=== PATIENT | female | born 1935 | race Caucasian/White ===

== ENCOUNTER 2016-09-24 10:10 | Emergency (ER) | payer MEDICAID, OTHER ==
[2016-09-24 10:10] VITALS: BMI 35.4
[2016-09-24 10:42] VITALS: TEMP 97.4
--- NOTE | 2016-09-24 11:18 | C.PDOC ---
History Of Present Illness 80 yr old female presents to the ER with complaints of upper back pain, radiating to the chest for the past 2 days. Patient also reports of numbness in the entire right arm. Denies trauma, injury, SOB, nausea, vomiting, abdominal pain, diarrhea, dysuria, neck pain, weakness or numbness. Time Seen by Provider: 09/24/16 10:52 Chief Complaint (Nursing): Back Pain History Per: Patient History/Exam Limitations: no limitations Onset/Duration Of Symptoms: Days (2) Current Symptoms Are (Timing): Still Present Past Medical History Reviewed: Historical Data, Nursing Documentation, Vital Signs Vital Signs: Last Vital Signs Temp 97.4 F L 09/24/16 10:32 Pulse 63 09/24/16 16:25 Resp 18 09/24/16 16:25 BP 117/54 L 09/24/16 16:25 Pulse Ox 98 09/24/16 16:52 - Medical History PMH: Anxiety, Arthritis, Gastritis, Gall Bladder Disease, HTN, Hypothyroidism Surgical History: CABG, Cholecystectomy, Pacemaker (2009) - [facility] Procedures EXCIS DEBRIDE OF WOUND, INFECT, OR BURN (07/12/13) IMMOBILIZ/WOUND ATTN NEC (07/12/13) Family History: States: No Known Family Hx - Social History Hx Tobacco Use: No Hx Alcohol Use: No Hx Substance Use: No - Immunization History Hx Tetanus Toxoid Vaccination: No Hx Influenza Vaccination: No Hx Pneumococcal Vaccination: No Review Of Systems Except As Marked, All Systems Reviewed And Found Negative. Cardiovascular: Positive for: Chest Pain (Raditing pain to chest) Respiratory: Negative for: Shortness of Breath Gastrointestinal: Negative for: Nausea, Abdominal Pain, Diarrhea Genitourinary: Negative for: Dysuria Musculoskeletal: Positive for: Back Pain (Upper back ). Negative for: Neck Pain Neurological: Negative for: Weakness, Numbness Physical Exam - Physical Exam Appears: Well, Non-toxic, No Acute Distress Skin: Warm, Dry, No Rash Head: Atraumatic, Normacephalic Chest: Symmetrical, Tenderness (Tenderness to the anterior chest ) Cardiovascular: Rhythm Regular, No Murmur Respiratory: Normal Breath Sounds, No Rales, No Wheezing Back: Other ((+) Tenderness to the upper back) Extremity: Normal ROM, Capillary Refill (<2), No Swelling Pulses: Left Radial: Normal, Right Radial: Normal Neurological/Psych: Oriented x3, Normal Speech ED Course And Treatment - Laboratory Results Result Diagrams: 09/24/16 11:38 09/24/16 11:38 O2 Sat by Pulse Oximetry: 98 - Other Rad CXR X-Ray: Viewed By Me, Read By Radiologist Interpretation: HISTORY: upper back pain. COMPARISON: Chest x-ray performed . TECHNIQUE: Chest, one view. FINDINGS: LUNGS: Mild bibasilar atelectasis. Please note that chest x-ray has limited sensitivity for the detection of pulmonary masses. PLEURA: No significant pleural effusion identified. No definite pneumothorax . CARDIOVASCULAR: Right-sided 3 lead pacemaker. Cardiomegaly. Tortuous aorta. Atherosclerotic calcifications. OSSEOUS STRUCTURES: Degenerative changes of the spine and shoulders. Acromioclavicular arthropathy. VISUALIZED UPPER ABDOMEN: Unremarkable. OTHER FINDINGS: None. IMPRESSION: Mild bibasilar atelectasis. Cardiomegaly. Right -sided pacemaker. - CT Scan/US CT - Head Other Rad Studies (CT/US): Read By Radiologist, Radiology Report Reviewed CT/US Interpretation: PROCEDURE: CT HEAD WITHOUT CONTRAST. HISTORY: right UE numbness. COMPARISON: Noncontrast head CT performed 08/14/12. TECHNIQUE: Axial computed tomography images were obtained through the head/brain without intravenous contrast. Radiation dose: Total exam DLP = 813.83 mGy-cm. This CT exam was performed using one or more of the following dose reduction techniques: Automated exposure control, adjustment of the mA and/or kV according to patient size, and/or use of iterative reconstruction technique. FINDINGS: HEMORRHAGE: No intracranial hemorrhage. BRAIN: Diffuse atrophy with prominence of the ventricles and sulci noted. No mass effect or edema. Intracranial atherosclerotic calcifications. Scattered periventricular and subcortical white matter hypodensities, which are nonspecific, but often seen with chronic microvascular ischemic disease. Please note that MRI with diffusion imaging is more sensitive in the detection of acute ischemic event. VENTRICLES: No hydrocephalus. CALVARIUM: Unremarkable. PARANASAL SINUSES: Unremarkable as visualized. No significant inflammatory changes. MASTOID AIR CELLS: Unremarkable as visualized. No inflammatory changes. OTHER FINDINGS: None. IMPRESSION: Generalized atrophy. Nonspecific white matter changes. Please note that MRI with diffusion imaging is more sensitive in the detection of acute ischemic event. CT - Chest & Abdomen Other Rad Studies (CT/US): Read By Radiologist, Radiology Report Reviewed CT/US Interpretation: CT chest, abdomen without and with IV contrast. Indication: CP/upper back pain/elevated. Technique: Contiguous axial images of the chest and abdomen without and with IV contrast. Coronal and Sagittal reformats generated and reviewed. This CT exam was performed using 1 or more of the following dose reduction techniques: Automated exposure control, adjustment of the MAA and/or kV according to patient size, and/or use of iterative reconstruction technique. Oral contrast was not administered. 100 cc Visipaque 320 administered IV. Radiation dose: Total exam DLP = 2299.83 MGy- cm. Comparison: Chest x-ray performed 09/24/16 CT abdomen and pelvis without contrast performed 05/14/12. Findings: The mediastinal and hilar vascular structures appear within normal limits. Three lead right-sided pacemaker. Cardiomegaly. Ectatic aorta. Atherosclerotic calcifications. No large central or segmental pulmonary embolus evident. No focal consolidation. No pleural effusion. No pneumothorax. No suspicious pulmonary nodules measuring greater than 5 mm. Cholecystectomy clips. The liver, spleen, kidneys, pancreas , and adrenal glands appear unremarkable. Small to moderate hiatal hernia. The stomach is nondistended. Lack of oral contrast limits evaluation for bowel pathology. The included bowel loops appear within normal limits of caliber without evidence of intestinal obstruction. Mild constipation. Diverticulosis without CT evidence of acute diverticulitis. There is no definite free air. The appendix appears within normal limits of caliber. No secondary signs of acute appendicitis. Numerous calcified densities within bilateral buttocks, likely injection granulomas. Small nonspecific sub cm nodular densities bilateral breasts (measuring up to approximately 8 mm) ; correlate with dedicated breast imaging. Degenerative changes. Vacuum disc phenomenon at several levels. Osseous demineralization. Mild kyphosis. Impression: Three lead right-sided pacemaker. Cardiomegaly. Ectatic aorta. Atherosclerotic calcifications. No large central or segmental pulmonary embolus evident. Cholecystectomy. Small to moderate hiatal hernia. Diverticulosis without CT evidence of acute diverticulitis. Mild constipation. . Small nonspecific sub cm nodular densities bilateral breasts (measuring up to approximately 8 mm) ; correlate with dedicated breast imaging. Degenerative changes of spine. Osseous demineralization. Mild kyphosis. Additional findings as above. Progress Note: On re-evaluation patient feels better, tolerates po and wants to be d/c home. Patient's son is at the bedside and also stating he wants patient to be d/c and sts they will f/u with PMD WIL. All labs and radiology reports were given to the patient. Medical Decision Making Medical Decision Making: PLAN: * CT - Chest & Abdomen * CT - Head * CXR * EKG * CBC * Troponin * D-Dimer * Urinalysis * Morphine IVP Disposition - Disposition Disposition: HOME/ ROUTINE Disposition Time: 16:50 Condition: STABLE Additional Instructions: FOLLOW UP WITH PMD WITHIN 1-2 DAYS. RETURN TO ED IF FEEL WORSE. Prescriptions: Nitrofurantoin Macrocrystals [Macrobid] 1 cap PO BID #10 cap traMADol/Acetaminophen [Ultracet 325 MG-37.5 MG] 1 tab PO Q6 PRN #30 tab PRN Reason: Pain Instructions: Back Pain (ED) - Clinical Impression Clinical Impression: Thoracic back pain - PA / FOOD CART ATTENDANT / Resident Statement MD/DO has reviewed & agrees with the documentation as recorded. - Scribe Statement The provider has reviewed the documentation as recorded by the Scribe Huong Oliveira All medical record entries made by the [employer] were at my direction and personally dictated by me. I have reviewed the chart and agree that the record accurately reflects my personal performance of the history, physical exam, medical decision making, and the department course for this patient. I have also personally directed, reviewed, and agree with the discharge instructions and disposition.
[2016-09-24 11:41] LABS: BASO % 0.7 % (0.0-2.0); EOS # 0.1 K/uL (0.0-0.7); EOS % 2.3 % (0.0-4.0); HEMATOCRIT 35.8 % (34.0-47.0); LYMPH # 2.1 K/uL (1.0-4.3); LYMPH % 34.2 % (20.0-40.0); MEAN CELL VOLUME 92.4 fL (81.0-99.0); MEAN CORPUSCULAR HEMOGLOBIN 30.7 pg (27.0-31.0); MEAN CORPUSCULAR HGB CONC 33.3 g/dL (33.0-37.0); MEAN PLATELET VOLUME 9.5 fL (7.2-11.7); MONO # 0.5 K/uL (0.0-0.8); MONO % 8.7 % (0.0-10.0); RED CELL DISTRIBUTION WIDTH 13.2 % (11.5-14.5); WHITE BLOOD COUNT 6.2 K/uL (4.8-10.8)
[2016-09-24 11:49] LABS: CHLORIDE 97 mmol/L (98-107)
[2016-09-24 11:50] LABS: INR 1.1; POTASSIUM 3.9 mmol/L (3.6-5.2); SODIUM 135 mmol/L (132-148)
[2016-09-24 11:52] LABS: ALB/GLOB RATIO 1.2 (1.0-2.1); ALKALINE PHOSPHATASE 70 U/L (38-126); AST/SGOT 25 U/L (14-36); BILIRUBIN,TOTAL 0.5 mg/dL (0.2-1.3); BLOOD UREA NITROGEN 19 mg/dL (7-17); CARBON DIOXIDE 27 mmol/L (22-30); GFR AFRICAN-AMERICAN > 60
[2016-09-24 11:53] LABS: ALT/SGPT 26 U/L (9-52); CALCIUM 8.9 mg/dl (8.6-10.4); GLUCOSE,RANDOM 101 mg/dL (65-105)
--- NOTE | 2016-09-24 12:03 | CT ---
PROCEDURE: CT HEAD WITHOUT CONTRAST. HISTORY: right UE numbness COMPARISON: Noncontrast head CT performed 08/14/12 TECHNIQUE: Axial computed tomography images were obtained through the head/brain without intravenous contrast. Radiation dose: Total exam DLP = 813.83 mGy-cm. This CT exam was performed using one or more of the following dose reduction techniques: Automated exposure control, adjustment of the mA and/or kV according to patient size, and/or use of iterative reconstruction technique. FINDINGS: HEMORRHAGE: No intracranial hemorrhage. BRAIN: Diffuse atrophy with prominence of the ventricles and sulci noted. No mass effect or edema. Intracranial atherosclerotic calcifications. Scattered periventricular and subcortical white matter hypodensities, which are nonspecific, but often seen with chronic microvascular ischemic disease. Please note that MRI with diffusion imaging is more sensitive in the detection of acute ischemic event. VENTRICLES: No hydrocephalus. CALVARIUM: Unremarkable. PARANASAL SINUSES: Unremarkable as visualized. No significant inflammatory changes. MASTOID AIR CELLS: Unremarkable as visualized. No inflammatory changes. OTHER FINDINGS: None. IMPRESSION: Generalized atrophy. Nonspecific white matter changes. Please note that MRI with diffusion imaging is more sensitive in the detection of acute ischemic event.
[2016-09-24 12:05] LABS: RBC URINE 1 /hpf (0-3); URINE BILIRUBIN NEGATIVE (NEGATIVE); URINE BLOOD NEGATIVE (NEGATIVE); URINE COLOR Yellow (YELLOW); URINE GLUCOSE (UA) NORMAL (Normal); URINE KETONE NEGATIVE (NEGATIVE); URINE LEUKOCYTE ESTERASE 3+ Leu/uL (Negative); URINE PROTEIN NEGATIVE (NEGATIVE); URINE UROBILINOGEN NORMAL mg/dL (0.2-1.0); WBC URINE 17 /hpf (0-5)
[2016-09-24 12:30] LABS: URINE BACTERIA MANY (<OCC)
[2016-09-24] MEDS ORDERED: Iodixanol 320 MG/ML 100 ML BOTTLE IV ONE (13:19)
--- NOTE | 2016-09-24 13:35 | RAD ---
HISTORY: upper back pain COMPARISON: Chest x-ray performed 12/20/15 TECHNIQUE: Chest, one view. FINDINGS: LUNGS: Mild bibasilar atelectasis. Please note that chest x-ray has limited sensitivity for the detection of pulmonary masses. PLEURA: No significant pleural effusion identified. No definite pneumothorax . CARDIOVASCULAR: Right-sided 3 lead pacemaker. Cardiomegaly. Tortuous aorta. Atherosclerotic calcifications. OSSEOUS STRUCTURES: Degenerative changes of the spine and shoulders. Acromioclavicular arthropathy. VISUALIZED UPPER ABDOMEN: Unremarkable. OTHER FINDINGS: None. IMPRESSION: Mild bibasilar atelectasis. Cardiomegaly. Right-sided pacemaker.
[2016-09-24 14:31] VITALS: PULSE 63
--- NOTE | 2016-09-24 15:07 | CT ---
CT chest, abdomen without and with IV contrast Indication: CP/upper back pain/elevated Technique: Contiguous axial images of the chest and abdomen without and with IV contrast. Coronal and Sagittal reformats generated and reviewed. This CT exam was performed using 1 or more of the following dose reduction techniques: Automated exposure control, adjustment of the MAA and/or kV according to patient size, and/or use of iterative reconstruction technique. Oral contrast was not administered. 100 cc Visipaque 320 administered IV. Radiation dose: Total exam DLP = 2299.83 MGy-cm. Comparison: Chest x-ray performed 09/24/16 CT abdomen and pelvis without contrast performed 05/14/12 Findings: The mediastinal and hilar vascular structures appear within normal limits. Three lead right-sided pacemaker. Cardiomegaly. Ectatic aorta. Atherosclerotic calcifications. No large central or segmental pulmonary embolus evident. No focal consolidation. No pleural effusion. No pneumothorax. No suspicious pulmonary nodules measuring greater than 5 mm. Cholecystectomy clips. The liver, spleen, kidneys, pancreas, and adrenal glands appear unremarkable. Small to moderate hiatal hernia. The stomach is nondistended. Lack of oral contrast limits evaluation for bowel pathology. The included bowel loops appear within normal limits of caliber without evidence of intestinal obstruction. Mild constipation. Diverticulosis without CT evidence of acute diverticulitis. There is no definite free air. The appendix appears within normal limits of caliber. No secondary signs of acute appendicitis. Numerous calcified densities within bilateral buttocks, likely injection granulomas. Small nonspecific sub cm nodular densities bilateral breasts (measuring up to approximately 8 mm) ; correlate with dedicated breast imaging. Degenerative changes. Vacuum disc phenomenon at several levels. Osseous demineralization. Mild kyphosis. Impression: Three lead right-sided pacemaker. Cardiomegaly. Ectatic aorta. Atherosclerotic calcifications. No large central or segmental pulmonary embolus evident. Cholecystectomy. Small to moderate hiatal hernia. Diverticulosis without CT evidence of acute diverticulitis. Mild constipation. Small nonspecific sub cm nodular densities bilateral breasts (measuring up to approximately 8 mm) ; correlate with dedicated breast imaging. Degenerative changes of spine. Osseous demineralization. Mild kyphosis. Additional findings as above.
[2016-09-24 16:25] VITALS: BP 117/54; RESP 18
[2016-09-24 16:52] VITALS: O2SAT 98
--- NOTE | 2016-09-25 17:47 | CARD ---
APPROVED REPORT EKG Measurement Heart [id number] <Conclusion> Ventricular-paced rhythm Abnormal ECG
== END 2016-09-24 17:09 | disposition home or self-care (01) ==
LOC: C.ER 10:10
DX: M54.6 Pain in thoracic spine (principal)
CPT/HCPCS: 70450; 71010; 71270; 74170; 80053; 81001; 82550; 82553; 83880; 84484; 85025; 85378; 85610; 85730; 93005; 96374; 99285; J2270; Q9967

== ENCOUNTER 2017-03-28 06:57 | Inpatient (IN) | payer MEDICAID ==
[2017-03-28 06:58] VITALS: BMI 28.3
[2017-03-28 07:38] LABS: BASO # 0.1 K/uL (0.0-0.2); BASO % 1.1 % (0.0-2.0); EOS # 0.1 K/uL (0.0-0.7); EOS % 2.2 % (0.0-4.0); HEMATOCRIT 43.2 % (34.0-47.0); LYMPH # 1.6 K/uL (1.0-4.3); MEAN CELL VOLUME 92.1 fL (81.0-99.0); MEAN CORPUSCULAR HEMOGLOBIN 30.9 pg (27.0-31.0); MEAN CORPUSCULAR HGB CONC 33.5 g/dL (33.0-37.0); MONO # 0.8 K/uL (0.0-0.8); NRBC % 0.2 % (0.0-2.0); RED CELL DISTRIBUTION WIDTH 13.6 % (11.5-14.5); WHITE BLOOD COUNT 4.8 K/uL (4.8-10.8)
[2017-03-28 07:50] LABS: ALB/GLOB RATIO 1.1 (1.0-2.1); ALKALINE PHOSPHATASE 81 U/L (38-126); ALT/SGPT 41 U/L (9-52); AST/SGOT 46 U/L (14-36); BILIRUBIN,TOTAL 0.6 mg/dL (0.2-1.3); BLOOD UREA NITROGEN 22 mg/dL (7-17); CALCIUM 8.8 mg/dl (8.6-10.4); CARBON DIOXIDE 32 mmol/L (22-30); CHLORIDE 96 mmol/L (98-107); GFR AFRICAN-AMERICAN 48; GLUCOSE,RANDOM 117 mg/dL (65-105); POTASSIUM 4.1 mmol/L (3.6-5.2); SODIUM 138 mmol/L (132-148); TOTAL PROTEIN 8.1 g/dL (6.3-8.3)
--- NOTE | 2017-03-28 09:37 | CP.PCM.HP ---
<Day Obregon - Last Filed: 03/28/17 10:17> History of Present Illness - History of Present Illness History of Present Illness: CC: "coughing x 3 days" This is an 81 year old [place] speaking female with PMHx of HTN, IGT, hyerlipidemia, hypothyroidism, cataracts, anxiety, arthritis, gastritis and "pacemaker for shortness of breath" presenting for 3 days of cough productive of white phlegm associated with fever, headache and chest pain radiating to her back. Patient reports shortness of breath with excursion. Patient says the chest pain hurts more when she presses on it and when she coughs. She says it hurts the most in her back. She tried Advil at home with no relief. She has not tried any other medications. Patient also reports feeling phlegm in her throat constantly.Patient has not had a bowel movement in 2 days which is not normal for her. She has had a decreased appetite for 2 days. She has only been drinking fluids, not eating food.Patient reports returning from [facility] one month ago (she was there for one month). Patient denies vision change, chills, sore throat, palpitations, abdominal pain, nausea, vomiting, diarrhea, dysuria, sick contacts. Patient says her pacemaker has 3 years of battery left. PMHx: as above PSHx: Pacemaker placed 17 years ago for "SOB" in [facility] and replaced 6 years ago, partial right knee replacement 6 years ago and left ankle surgery 16 years ago for ulcer; CABG is in her history on intake but she denies this and does not have a scar or sternotomy on CXR; cholecystectomy over 10 years ago FMHx: uncontributory. Social: Denied smoking, ETOH or drugs. Lives with son. Pt can ambulate without cane or walker at home. Allergies: NKDA PMD: Dr. Schmitz Private EP cardio: Dr. Calderon Present on Admission - Present on Admission Any Indicators Present on Admission: No Review of Systems - Constitutional Constitutional: Fever. absent: Chills - EENT Eyes: absent: Blurred Vision Ears: Dizziness (today) Nose/Mouth/Throat: Post Nasal Drip. absent: Sore Throat - Cardiovascular Cardiovascular: Chest Pain, Radiating Pain. absent: Diaphoresis, Edema, Palpitations, Rapid Heart Rate - Respiratory Respiratory: Cough, Dyspnea, Excessive Mucous Production. absent: Wheezing, Change in Mucous Color - Gastrointestinal Gastrointestinal: Constipation. absent: Abdominal Pain, Diarrhea, Nausea, Vomiting - Genitourinary Genitourinary: absent: Dysuria - Musculoskeletal Musculoskeletal: Back Pain - Neurological Neurological: Dizziness, Headaches - Psychiatric Psychiatric: Change in Appetite. absent: Depression - Endocrine Endocrine: absent: Fatigue, Palpitations - Hematologic/Lymphatic Hematologic: absent: Easy Bleeding, Easy Bruising Past Patient History - Infectious Disease Hx of Infectious Diseases: None - Past Medical History & Family History Past Medical History?: Yes Past Family History: Reviewed and not pertinent - Past Social History Smoking Status: Never Smoked Alcohol: None Drugs: Denies Home Situation {Lives}: With Family - CARDIAC Hx Cardiac Disorders: Yes Hx Hypertension: Yes Hx Pacemaker: Yes (2009) - PULMONARY Hx Respiratory Disorders: No - NEUROLOGICAL Hx Neurological Disorder: No - HEENT Hx HEENT Problems: Yes Hx Cataracts: Yes (BILATERAL CATARACT SURGERY) - RENAL Hx Chronic Kidney Disease: No - ENDOCRINE/METABOLIC Hx Endocrine Disorders: Yes Hx Hypothyroidism: Yes - HEMATOLOGICAL/ONCOLOGICAL Hx Blood Disorders: No - INTEGUMENTARY Hx Dermatological Problems: No - MUSCULOSKELETAL/RHEUMATOLOGICAL Hx Musculoskeletal Disorders: Yes Hx Arthritis: Yes - GASTROINTESTINAL Hx Gastrointestinal Disorders: Yes Hx Gall Bladder Disease: Yes Hx Gastritis: Yes - GENITOURINARY/GYNECOLOGICAL Hx Genitourinary Disorders: No - PSYCHIATRIC Hx Psychophysiologic Disorder: Yes Hx Anxiety: Yes Hx Substance Use: No - SURGICAL HISTORY Hx Surgeries: Yes Hx Cholecystectomy: Yes Hx Coronary Artery Bypass Graft: Yes Hx Hysterectomy: Yes Hx Musculoskeletal Surgery: Yes (BILATERAL KNEE) Other/Comment: PACEMAKER - ANESTHESIA Hx Anesthesia: Yes Hx Anesthesia Reactions: No Hx Malignant Hyperthermia: No Meds Allergies/Adverse Reactions: Allergies Allergy/AdvReac Type Severity Reaction Status Date / Time No Known Allergies Allergy Verified 03/28/17 07:11 Physical Exam - Constitutional Appears: Non-toxic, No Acute Distress - Head Exam Head Exam: NORMAL INSPECTION - Eye Exam Eye Exam: EOMI - ENT Exam ENT Exam: Mucous Membranes Moist. absent: Normal Oropharynx (erythematous with cobblestoning) - Respiratory Exam Respiratory Exam: Chest Wall Tenderness, Decreased Breath Sounds (right side), Rales (bibasilar), NORMAL BREATHING PATTERN. absent: Accessory Muscle Use, Clear to Auscultation Bilateral, Rhonchi, Wheezes, Respiratory Distress - Cardiovascular Exam Cardiovascular Exam: REGULAR RHYTHM, +S1, +S2. absent: Gallop, JVD, Rubs, Systolic Murmur - GI/Abdominal Exam GI & Abdominal Exam: Normal Bowel Sounds, Soft. absent: Distended, Firm, Tenderness - Extremities Exam Extremities exam: Negative for: pedal edema - Neurological Exam Neurological exam: Alert, Oriented x3 - Psychiatric Exam Psychiatric exam: Normal Affect, Normal Mood - Skin Skin Exam: Normal Color, Warm Results - Vital Signs Recent Vital Signs: Last Vital Signs Temp 97.4 F L 03/28/17 07:07 Pulse 77 03/28/17 09:24 Resp 16 03/28/17 09:24 BP 113/63 03/28/17 09:24 Pulse Ox 97 03/28/17 09:24 - Labs Result Diagrams: 03/28/17 07:33 03/28/17 07:20 Labs: Laboratory Results - last 24 hr 03/28/17 03/28/17 03/28/17 07:20 07:33 07:33 WBC 4.8 RBC 4.70 Hgb 14.5 Hct 43.2 MCV 92.1 MCH 30.9 MCHC 33.5 RDW 13.6 Plt Count 210 MPV 9.0 Neut % (Auto) 47.7 L Lymph % (Auto) 33.0 [place] % (Auto) 16.0 H Eos % (Auto) 2.2 Baso % (Auto) 1.1 Neut # 2.3 Lymph # 1.6 [place] # 0.8 Eos # 0.1 Baso # 0.1 Sodium 138 Potassium 4.1 Chloride 96 L Carbon Dioxide 32 H Anion Gap 14 BUN 22 H Creatinine 1.3 H Est GFR ( Amer) 48 Est GFR (Non-Af Amer) 39 Random Glucose 117 H Calcium 8.8 Total Bilirubin 0.6 AST 46 H ALT 41 Alkaline Phosphatase 81 Troponin I < 0.0120 Total Protein 8.1 Albumin 4.3 Globulin 3.8 Albumin/Globulin Ratio 1.1 Free T4 Influenza Typ A,B (EIA) Negative for flu a/b 03/28/17 07:54 WBC RBC Hgb Hct MCV MCH MCHC RDW Plt Count MPV Neut % (Auto) Lymph % (Auto) Jun[place] % (Auto) Eos % (Auto) Baso % (Auto) Neut # Lymph # Jun[place] # Eos # Baso # Sodium Potassium Chloride Carbon Dioxide Anion Gap BUN Creatinine Est GFR ( Amer) Est GFR (Non-Af Amer) Random Glucose Calcium Total Bilirubin AST ALT Alkaline Phosphatase Troponin I Total Protein Albumin Globulin Albumin/Globulin Ratio Free T4 1.31 Influenza Typ A,B (EIA) Assessment & Plan - Assessment and Plan (Free Text) Assessment: Productive Cough Likely secondary to pneumonia BNP 196 CXR 03/28/17 - read as no active disease; costophrenic angles are blunted and cardiac sillhouette is prominent Will get Chest CT (waiting for d-dimer to see if patient needs CTA or not) F/U blood culture, strep, mycoplasma, legionella Azithromycin 500mg IVPB daily Rocephin 1gm IVPB daily Robitussin 100mg PO Q4H PRN cough Duonebs 3ml INH RQ6 Dyspnea Possible PE as she was on a plane from [facility] one month ago F/U d-dimer Will get CTA if it is positive Chest Pain Likely musculoskeletal v. PE v. ACS EKG 03/28/17 - atrial paced ventricular rhythm at 83bpm JANNA negative x 1 F/U ROMIs with EKGs x 2 F/U ECHO F/U TSH, lipid panel, HgbA1C Continue home ASA 81mg PO daily Continue home simvastatin 20mg PO HS --> convert to formulary by pharmacy Toradol 30mg IVP x1 ERICA Creatinine 1.3 (from 0.8 last admission) Likely secondary to dehydration gentle hydration of NS @ 50mls/hr Holding home Lasix 40mg PO daily Monitor Constipation Colace 100mg PO BID Miralax 17gm PO daily History of HTN Continue home HCTZ 12.5mg PO daily Continue home Cozaar 100mg PO daily Controlled History of Hypothyroidism Continue home synthroid 125mcg PO daily F/U TSH History of Hyperlipidemia Converting home simvastatin 20mg PO daily to formulary F/U Lipid panel Prophylaxis Protonix 40mg PO daily Heparin 5000U SC Q8 SCDs <Kalani Duffy V - Last Filed: 03/29/17 11:49> Results - Vital Signs Recent Vital Signs: Last Vital Signs Temp 97.5 F L 03/28/17 16:00 Pulse 82 03/28/17 16:00 Resp 20 03/28/17 16:00 BP 103/68 03/28/17 16:00 Pulse Ox 98 03/28/17 16:00 - Labs Result Diagrams: 03/29/17 07:19 03/28/17 18:31 Labs: Laboratory Results - last 24 hr 03/28/17 03/28/17 03/28/17 07:20 07:33 07:33 WBC 4.8 RBC 4.70 Hgb 14.5 Hct 43.2 MCV 92.1 MCH 30.9 MCHC 33.5 RDW 13.6 Plt Count 210 MPV 9.0 Neut % (Auto) 47.7 L Lymph % (Auto) 33.0 Juncos % (Auto) 16.0 H Eos % (Auto) 2.2 Baso % (Auto) 1.1 Neut # 2.3 Lymph # 1.6 Jun[place] # 0.8 Eos # 0.1 Baso # 0.1 D-Dimer, Quantitative Sodium 138 Potassium 4.1 Chloride 96 L Carbon Dioxide 32 H Anion Gap 14 BUN 22 H Creatinine 1.3 H Est GFR ( Amer) 48 Est GFR (Non-Af Amer) 39 POC Glucose (mg/dL) Random Glucose 117 H Calcium 8.8 Total Bilirubin 0.6 AST 46 H ALT 41 Alkaline Phosphatase 81 Total Creatine Kinase CK-MB (Mass) Troponin I < 0.0120 NT-Pro-B Natriuret Pep Total Protein 8.1 Albumin 4.3 Globulin 3.8 Albumin/Globulin Ratio 1.1 Free T4 Total T3 TSH 3rd Generation Influenza Typ A,B (EIA) Negative for flu a/b 03/28/17 03/28/17 03/28/17 07:54 07:54 09:05 WBC RBC Hgb Hct MCV MCH MCHC RDW Plt Count MPV Neut % (Auto) Lymph % (Auto) Juncos % (Auto) Eos % (Auto) Baso % (Auto) Neut # Lymph # Jun[place] # Eos # Baso # D-Dimer, Quantitative Sodium Potassium Chloride Carbon Dioxide Anion Gap BUN Creatinine Est GFR ( Amer) Est GFR (Non-Af Amer) POC Glucose (mg/dL) Random Glucose Calcium Total Bilirubin AST ALT Alkaline Phosphatase Total Creatine Kinase CK-MB (Mass) Troponin I NT-Pro-B Natriuret Pep 196 Total Protein Albumin Globulin Albumin/Globulin Ratio Free T4 1.31 Total T3 1.48 L TSH 3rd Generation 4.39 Influenza Typ A,B (EIA) 03/28/17 03/28/17 03/28/17 11:39 11:41 13:45 WBC RBC Hgb Hct MCV MCH MCHC RDW Plt Count MPV Neut % (Auto) Lymph % (Auto) Jun[place] % (Auto) Eos % (Auto) Baso % (Auto) Neut # Lymph # Jun[place] # Eos # Baso # D-Dimer, Quantitative 369 H Sodium Potassium Chloride Carbon Dioxide Anion Gap BUN Creatinine Est GFR ( Amer) Est GFR (Non-Af Amer) POC Glucose (mg/dL) 132 H Random Glucose Calcium Total Bilirubin AST ALT Alkaline Phosphatase Total Creatine Kinase 113 CK-MB (Mass) 0.35 Troponin I < 0.0120 NT-Pro-B Natriuret Pep Total Protein Albumin Globulin Albumin/Globulin Ratio Free T4 Total T3 TSH 3rd Generation Influenza Typ A,B (EIA) Attending/Attestation - Attestation I have personally seen and examined this patient.: Yes I have fully participated in the care of the patient.: Yes I have reviewed all pertinent clinical information: Yes Notes (Text): Patient seen, examined and case discussed with day-time resident, Patient seen with her son at bedside. Patient reporting pleuritic chest pain with associated cough for the past three days. Patient did not take any antibiotics or any antitussive medications. Patient reports has had AICD placed for shortness of breathe about 5 years ago but has had it checked recently on her last visit for [facility]. Will monitor the patient on telemetry check JANNA and EKGs. Will order d-dimer if positive will order for CT angio r/o PE. Consult and discussed case with cardiology vehicle modification technician Dr. Boogie, suspected chest pain is MSK related. Patient has had mycocardial perfusion stress test about one year ago which was normal Admitting orders discussed with the resident. Assessment/Plan 1) Productive Cough * Likely secondary to pneumonia/Bronchitis * BNP 196 * CXR 03/28/17 - read as no active disease; costophrenic angles are blunted and cardiac sillhouette is prominent * Will get Chest CT (waiting for d-dimer to see if patient needs CTA or not) * F/U blood culture, strep, mycoplasma, legionella * will start Azithromycin 500mg IVPB daily and Rocephin 1gm IVPB daily to cover for community acquired pneumonia * Robitussin 100mg PO Q4H PRN cough * Duonebs 3ml INH RQ6 * Patient reports itchiness secondary to Morphine in the past 2) Dyspnea * Will rule out PE, given recent travel. Possible PE as she was on a plane from [place] one month ago * F/U d-dimer--->Will get CTA if it is positive 3) Chest Pain * Likely musculoskeletal v. PE v. ACS * EKG 03/28/17 - atrial paced ventricular rhythm at 83bpm * JANNA negative x 1 * F/U ROMIs with EKGs x 2 * F/U ECHO * F/U TSH, lipid panel, HgbA1C * Continue home ASA 81mg PO daily * Continue home simvastatin 20mg PO HS --> convert to formulary by pharmacy * Toradol 30mg IVP x1 for MSK pain over right side of chest pain 4) ERICA * Creatinine 1.3 (from 0.8 last admission) * Likely secondary to dehydration * gentle hydration of NS @ 50mls/hr * Holding home Lasix 40mg PO daily * Monitor 5) Constipation * Colace 100mg PO BID * Miralax 17gm PO daily 6) History of HTN * Continue home HCTZ 12.5mg PO daily * Continue home Cozaar 100mg PO daily * Controlled 7) History of Hypothyroidism * Continue home synthroid 125mcg PO daily * F/U TSH 8) History of Hyperlipidemia * Converting home simvastatin 20mg PO daily to formulary * F/U Lipid panel 9) Prophylaxis * Protonix 40mg PO daily * Heparin 5000U SC Q8 * SCDs
--- NOTE | 2017-03-28 10:00 | RAD ---
PROCEDURE: CHEST RADIOGRAPH, 1 VIEW HISTORY: chest pain COMPARISON: Comparison is made to 09/24/2016 FINDINGS: LUNGS: No evidence of new infiltrate or consolidation in the lungs. PLEURA: No pneumothorax or pleural fluid seen. CARDIOVASCULAR: The cardiac silhouette is slightly prominent. Right-sided pacemaker is again seen in place. OSSEOUS STRUCTURES: No significant abnormalities. VISUALIZED UPPER ABDOMEN: Normal. OTHER FINDINGS: None. IMPRESSION: No active disease.
--- NOTE | 2017-03-28 10:02 | C.PDOC ---
History Of Present Illness 81-year-old female, PMHx includes Anxiety, Arthritis, Diabetes, s/p pacemaker Gastritis, Hypertension, and Hypothyroidism, presents to the emergency department with complaints of coughing for the past 2-3 days, that is associated with white phlegm. Patient states that she woke up at 02:00 this morning with left-sided, non-radiating chest pain and pressure. She denies fever , diaphoresis, sick contacts, recent travel, or any other associated symptoms. No other complaints at this time. Of note, patients last cardiac workup in 2016. Chief Complaint (Nursing): Chest Pain History Per: Patient History/Exam Limitations: no limitations Onset/Duration Of Symptoms: Days Current Symptoms Are (Timing): Still Present Severity: Moderate Past Medical History Reviewed: Historical Data, Nursing Documentation, Vital Signs Vital Signs: Last Vital Signs Temp 97.5 F L 03/28/17 16:00 Pulse 82 03/28/17 16:00 Resp 20 03/28/17 16:00 BP 103/68 03/28/17 16:00 Pulse Ox 98 03/28/17 16:00 - Medical History PMH: Anxiety, Arthritis, Gastritis, Gall Bladder Disease, HTN, Hypothyroidism Surgical History: CABG, Cholecystectomy, Pacemaker (2009) - [facility] Procedures EXCIS DEBRIDE OF WOUND, INFECT, OR BURN (07/12/13) IMMOBILIZ/WOUND ATTN NEC (07/12/13) Family History: States: No Known Family Hx - Social History Hx Tobacco Use: No Hx Alcohol Use: No Hx Substance Use: No - Immunization History Hx Tetanus Toxoid Vaccination: No Hx Influenza Vaccination: No Hx Pneumococcal Vaccination: No Review Of Systems Except As Marked, All Systems Reviewed And Found Negative. Constitutional: Negative for: Fever, Chills, Weakness Cardiovascular: Positive for: Chest Pain. Negative for: Palpitations, Edema, Light Headedness Respiratory: Positive for: Cough, Sputum Musculoskeletal: Negative for: Back Pain Physical Exam - Physical Exam Appears: Non-toxic, No Acute Distress Skin: Warm, Dry, No Rash Head: Atraumatic, Normacephalic Eye(s): bilateral: Normal Inspection, PERRL Nose: Normal Oral Mucosa: Moist Neck: Normal ROM Cardiovascular: Rhythm Regular, No Murmur Respiratory: Normal Breath Sounds, No Accessory Muscle Use Gastrointestinal/Abdominal: Soft, No Tenderness Extremity: Normal ROM Neurological/Psych: Oriented x3, Normal Speech ED Course And Treatment - Laboratory Results Result Diagrams: 03/28/17 07:33 03/28/17 07:20 ECG: Interpreted By Me, Viewed By Me ECG Rhythm: Sinus Rhythm ECG Interpretation: No Acute Changes Rate From EC O2 Sat by Pulse Oximetry: 97 (on RA) Pulse Ox Interpretation: Normal Medical Decision Making Medical Decision Making: Impression 81y/o F comes in w/ left sided CP since last night Plan: * EKG * Chest X-Ray * Labs * Influenza AB * UA * Reassess and Disposition. Disposition - Disposition Disposition: HOSPITALIZED Disposition Time: 08:25 Condition: STABLE - Clinical Impression Clinical Impression: Chest pain - Scribe Statement The provider has reviewed the documentation as recorded by the Scribe (Azucena Martin) All medical record entries made by the Scribe were at my direction and personally dictated by me. I have reviewed the chart and agree that the record accurately reflects my personal performance of the history, physical exam, medical decision making, and the department course for this patient. I have also personally directed, reviewed, and agree with the discharge instructions and disposition.
[2017-03-28] MEDS ORDERED: Azithromycin 500 MG in Sodium Chloride 0.9% 250 ML IVPB SCH (10:15)
[2017-03-28] MEDS: guaiFENesin 100 mg/5 ml Syrup UD PO PRN (11:31)
[2017-03-28] MEDS: POLYETHYLENE GLYCOL 3350 17 GM/Dose PACKET PO SCH (11:32)
[2017-03-28] MEDS: Sodium Chloride 0.9% 1,000 ML IV SCH (11:32)
[2017-03-28] MEDS: Pantoprazole 40 mg EC Tab PO SCH (11:32)
[2017-03-28] MEDS: Levothyroxine 125 MCG TAB PO SCH (11:33)
[2017-03-28] MEDS: Azithromycin 500 MG in Sodium Chloride 0.9% 250 ML IVPB SCH (12:33)
[2017-03-28 13:21] LABS: THYROID STIMULATING HORMONE 4.39 mIU/L (0.46-4.68)
[2017-03-28] MEDS: Albuterol-Ipratrop 3 mg / 0.5 (3 ml) UD INH SCH ×2 (14:34→19:36)
[2017-03-28 18:50] LABS: CALCIUM 7.7 mg/dl (8.6-10.4); GFR AFRICAN-AMERICAN > 60; GLUCOSE,RANDOM 137 mg/dL (65-105)
[2017-03-28 18:52] LABS: BLOOD UREA NITROGEN 23 mg/dL (7-17); CARBON DIOXIDE 27 mmol/L (22-30); CHLORIDE 100 mmol/L (98-107); POTASSIUM 4.4 mmol/L (3.6-5.2); SODIUM 134 mmol/L (132-148)
[2017-03-28] MEDS ORDERED: Iodixanol 320 MG/ML 100 ML BOTTLE IV ONE (20:11)
--- NOTE | 2017-03-28 20:52 | CT ---
EXAM: CT Angiography Chest With Intravenous Contrast EXAM DATE/TIME: Exam ordered 03/28/2017 5:28 PM CLINICAL HISTORY: 81 years old, female; Signs and symptoms; Cough and other: Elevated d-dimer; Symptoms not specified; Additional info: Increased d-dimer, possible pe TECHNIQUE: Axial computed tomographic angiography images of the chest with intravenous contrast using pulmonary embolism protocol. All CT scans at this facility use one or more dose reduction techniques, viz.: automated exposure control; ma/kV adjustment per patient size (including targeted exams where dose is matched to indication; i.e. head); or iterative reconstruction technique. MIP reconstructed images were created and reviewed. Coronal and sagittal reformatted images were created and reviewed. CONTRAST: 100 mL of [id number] administered intravenously. COMPARISON: No relevant prior studies available. FINDINGS: Pulmonary arteries: Unremarkable. No pulmonary embolism. Aorta: No acute findings. No thoracic aortic aneurysm. Lungs: Hypoventilatory changes are seen in the dependent portion of both lung bases. No mass. Pleural space: Unremarkable. No significant effusion. No pneumothorax. Heart: Coronary calcifications present. No significant pericardial effusion. No evidence of RV dysfunction. Mediastinum: There is a small hiatal hernia. Bones/joints: No acute fracture. No dislocation. Soft tissues: Unremarkable. Lymph nodes: Unremarkable. No enlarged lymph nodes. Gallbladder and bile ducts: Surgical clips are noted in the gallbladder fossa. Tubes, lines and devices: There is a 3-lead pacemaker/AICD device via right subclavian approach. A pacemaker is embedded within the soft tissues of the right anterior chest wall superiorly IMPRESSION: 1. No pulmonary embolism 2. Small hiatal hernia is.
[2017-03-29] MEDS: Albuterol-Ipratrop 3 mg / 0.5 (3 ml) UD INH SCH ×4 (01:38→20:07)
--- NOTE | 2017-03-29 03:46 | CON ---
CARDIOLOGY CONSULTATION REQUESTED BY: Dr. Kalani Duffy, hospitalist group. LOCATION: Presently in room 661. HISTORY OF PRESENT ILLNESS: Requested to see this 81-year-old female originally from [facility], who was admitted yesterday with some pain in the right pectoral area radiating to the back which began three days ago when she developed an upper respiratory infection, cough, whitish phlegm, and every time that "she coughs, she has that pain." PAST MEDICAL HISTORY: Includes permanent pacemaker implantation many years ago, the details are not very clear. Recent work, the heart was "weak." She had a generator replaced about three or four years ago. Past medical history, in addition includes hypertension, elevated lipids, etc. The two sons at the bedside, Judson and Keegan, translating and telling she is very active, walks around the house and she recently took a trip to [place] and everything appeared to be quite okay. She denies any dizziness or syncope. Pain atypical as mentioned above probably related to musculoskeletal origin due to coughing over the last several days. [facility] for now quite some time, actually Dr. Duffy mentioned that she was the initial physician that sent her to the Clinic and now she is under the care of Dr. Schmitz. She has diffuse arthritis due to aging, especially in the knee and the hip, but she gets along quite well. MEDICATIONS: She takes multiple medications at home, which includes hydrochlorothiazide, levothyroxine 125 mcg; I failed to mention that she is also hypothyroid; and she is on losartan, Crestor 5 mg, pantoprazole 40 mg. Since arrival here, she was given a dose of Rocephin as well as azithromycin 500 mg, both IV. She is on albuterol inhaler every 6 hours here. PHYSICAL EXAMINATION: GENERAL: This is an elderly female, appears more younger for her stated age, in no distress, except when we asked her to take a deep breath and cough, that is when she complained of the pain in the right upper chest going to the back. VITAL SIGNS: Quite stable here. Blood pressure around 110/60, pulse is regular, telemetry showing atrioventricular pace with atrial tracking A-V sequential pacemaker, respiratory rate is unremarkable. SKIN: Does not show any dependent edema. She has both lower extremity with Venodyne for DVT prophylaxis here. HEAD, EAR, NOSE AND THROAT: Basically unremarkable. NECK: Supple. No thyromegaly. CHEST: Shows no rashes. No localized tenderness. The only time that she hurts, has pain is when we ask her to take a deep breath and cough, especially when she coughs several times. LUNGS Totally clear. CARDIOLOGIC: There is a pacemaker pulse generated in the right infraclavicular area. Heart sounds are normal in intensity and regular. Minimal systolic murmur. ABDOMEN: Mildly obese. No localized tenderness. CENTRAL NERVOUS SYSTEM: Unremarkable. LABORATORY DATA: Complementary data discussed with Dr. Duffy. D-dimer is pending. CBC and basic metabolic profile, nothing remarkable for her age. Troponin, two sets of troponin are negative and influenza test was also negative for A and B. Chest x-ray does not show any pulmonary infiltrates, although it is rotated, it is difficult, with poor inspiratory effort. There is a pacemaker with two leads, one in the atrium and one in the ventricle and the pulse generator in the right infraclavicular area. EKG, A-V sequential pacemaker. IMPRESSION: 1. Atypical chest pain, appears musculoskeletal in origin at this point in time probably due to coughing on the basis of the respiratory infection that she has. 2. Hypertensive heart disease, status post permanent pacemaker, both stable at this point. SUGGESTION: I discussed with Dr. Duffy. Cardiologically appears stable at this moment. D-dimer is pending and depending upon all the investigation perhaps it would be entertained. At this moment, she is receiving treatment for respiratory infection and an echo will be done tomorrow sometime. We will follow up. Ishan Boogie MD
[2017-03-29] MEDS: Sodium Chloride 0.9% 1,000 ML IV SCH (06:32)
[2017-03-29 07:32] LABS: BASO % 0.7 % (0.0-2.0); EOS # 0.1 K/uL (0.0-0.7); EOS % 3.1 % (0.0-4.0); HEMATOCRIT 37.4 % (34.0-47.0); LYMPH # 1.9 K/uL (1.0-4.3); LYMPH % 47.8 % (20.0-40.0); MEAN CELL VOLUME 91.8 fL (81.0-99.0); MEAN CORPUSCULAR HEMOGLOBIN 31.2 pg (27.0-31.0); MEAN CORPUSCULAR HGB CONC 33.9 g/dL (33.0-37.0); MONO # 0.6 K/uL (0.0-0.8); MONO % 14.7 % (0.0-10.0); RED CELL DISTRIBUTION WIDTH 13.7 % (11.5-14.5); WHITE BLOOD COUNT 3.9 K/uL (4.8-10.8)
[2017-03-29 07:56] LABS: CHOLESTEROL 193 mg/dL (0-199)
[2017-03-29] MEDS: Pantoprazole 40 mg EC Tab PO SCH (10:21)
[2017-03-29] MEDS: POLYETHYLENE GLYCOL 3350 17 GM/Dose PACKET PO SCH (10:21)
[2017-03-29] MEDS: Azithromycin 500 MG in Sodium Chloride 0.9% 250 ML IVPB SCH (10:58)
[2017-03-29] MEDS: Levothyroxine 125 MCG TAB PO SCH (15:52)
--- NOTE | 2017-03-29 17:37 | CP.PCM.DIS ---
Provider - Provider Date of Admission: 03/28/17 08:55 Attending physician: Aquiles Chavez MD Primary care physician: KORI at [facility] Consults: Cardiology: Dr. Yamilet Boogie Time Spent in preparation of Discharge (in minutes): 45 Hospital Course - Lab Results Lab Results: Micro Results 03/28/17 07:20 Blood Blood Culture - Preliminary NO GROWTH AFTER 24 HOURS 03/28/17 07:50 Blood Blood Culture - Preliminary NO GROWTH AFTER 24 HOURS Most Recent Lab Values WBC 3.9 K/uL (4.8-10.8) L 03/29/17 07:19 RBC 4.07 Mil/uL (3.80-5.20) 03/29/17 07:19 Hgb 12.7 g/dL (11.0-16.0) 03/29/17 07:19 Hct 37.4 % (34.0-47.0) 03/29/17 07:19 MCV 91.8 fL (81.0-99.0) 03/29/17 07:19 MCH 31.2 pg (27.0-31.0) H 03/29/17 07:19 MCHC 33.9 g/dL (33.0-37.0) 03/29/17 07:19 RDW 13.7 % (11.5-14.5) 03/29/17 07:19 Plt Count 182 K/uL (130-400) 03/29/17 07:19 MPV 9.0 fL (7.2-11.7) 03/29/17 07:19 Neut % (Auto) 33.7 % (50.0-75.0) L 03/29/17 07:19 Lymph % (Auto) 47.8 % (20.0-40.0) H 03/29/17 07:19 Wood % (Auto) 14.7 % (0.0-10.0) H 03/29/17 07:19 Eos % (Auto) 3.1 % (0.0-4.0) 03/29/17 07:19 Baso % (Auto) 0.7 % (0.0-2.0) 03/29/17 07:19 Neut # 1.3 K/uL (1.8-7.0) L 03/29/17 07:19 Lymph # 1.9 K/uL (1.0-4.3) 03/29/17 07:19 Wood # 0.6 K/uL (0.0-0.8) 03/29/17 07:19 Eos # 0.1 K/uL (0.0-0.7) 03/29/17 07:19 Baso # 0.0 K/uL (0.0-0.2) 03/29/17 07:19 D-Dimer, Quantitative 369 ng/mlDDU (0-243) H 03/28/17 11:39 Sodium 134 mmol/L (132-148) 03/28/17 18:31 Potassium 4.4 mmol/L (3.6-5.2) 03/28/17 18:31 Chloride 100 mmol/L (98-107) 03/28/17 18:31 Carbon Dioxide 27 mmol/L (22-30) 03/28/17 18:31 Anion Gap 11 (10-20) 03/28/17 18:31 BUN 23 mg/dL (7-17) H 03/28/17 18:31 Creatinine 0.9 mg/dL (0.7-1.2) 03/28/17 18:31 Est GFR ( Amer) > 60 03/28/17 18:31 Est GFR (Non-Af Amer) > 60 03/28/17 18:31 POC Glucose (mg/dL) 132 mg/dL (65-110) H 03/28/17 11:41 Random Glucose 137 mg/dL (65-105) H 03/28/17 18:31 Hemoglobin A1c 6.3 % (4.2-6.5) 03/29/17 07:19 Calcium 7.7 mg/dl (8.6-10.4) L 03/28/17 18:31 Total Bilirubin 0.6 mg/dL (0.2-1.3) 03/28/17 07:20 AST 46 U/L (14-36) H 03/28/17 07:20 ALT 41 U/L (9-52) 03/28/17 07:20 Alkaline Phosphatase 81 U/L (38-126) 03/28/17 07:20 Total Creatine Kinase 112 U/L (30-135) 03/28/17 18:31 CK-MB (Mass) 0.49 ng/mL (0.0-3.38) 03/28/17 18:31 Troponin I < 0.0120 ng/mL (0.00-0.120) 03/28/17 18:31 NT-Pro-B Natriuret Pep 196 pg/mL (0-900) 03/28/17 09:05 Total Protein 8.1 g/dL (6.3-8.3) 03/28/17 07:20 Albumin 4.3 g/dL (3.5-5.0) 03/28/17 07:20 Globulin 3.8 gm/dL (2.2-3.9) 03/28/17 07:20 Albumin/Globulin Ratio 1.1 (1.0-2.1) 03/28/17 07:20 Triglycerides 96 mg/dL (0-149) D 03/29/17 07:19 Cholesterol 193 mg/dL (0-199) 03/29/17 07:19 LDL Cholesterol Direct 118 mg/dL (0-129) 03/29/17 07:19 HDL Cholesterol 44 mg/dL (30-70) 03/29/17 07:19 Free T4 1.31 ng/dL (0.78-2.19) 03/28/17 07:54 Total T3 1.48 nmol/L (1.49-2.60) L 03/28/17 07:54 TSH 3rd Generation 4.39 mIU/L (0.46-4.68) 03/28/17 07:54 Influenza Typ A,B (EIA) Negative for flu a/b (NEGATIVE) 03/28/17 07:33 Ur L.pneumophila Ag Negative (NEGATIVE) 03/28/17 18:31 - Hospital Course Hospital Course: CC: "coughing x 3 days" HPI: This is an 81 year old Cypriot speaking female with PMHx of HTN, IGT, hyerlipidemia, hypothyroidism, cataracts, anxiety, arthritis, gastritis and "pacemaker for shortness of breath" presenting for 3 days of cough productive of white phlegm associated with fever, headache and chest pain radiating to her back. Patient reports shortness of breath with excursion. Patient says the chest pain hurts more when she presses on it and when she coughs. She says it hurts the most in her back. She tried Advil at home with no relief. She has not tried any other medications. Patient also reports feeling phlegm in her throat constantly.Patient has not had a bowel movement in 2 days which is not normal for her. She has had a decreased appetite for 2 days. She has only been drinking fluids, not eating food.Patient reports returning from [facility] one month ago (she was there for one month). Patient denies vision change, chills, sore throat, palpitations, abdominal pain, nausea, vomiting, diarrhea, dysuria, sick contacts. Patient says her pacemaker has 3 years of battery left. PMHx: as above PSHx: Pacemaker placed 17 years ago for "SOB" in [facility] and replaced 6 years ago, partial right knee replacement 6 years ago and left ankle surgery 16 years ago for ulcer; CABG is in her history on intake but she denies this and does not have a scar or sternotomy on CXR; cholecystectomy over 10 years ago FMHx: uncontributory. Social: Denied smoking, ETOH or drugs. Lives with son. Pt can ambulate without cane or walker at home. Allergies: NKDA PMD: Dr. Schmitz [facility] EP cardio: Dr. Calderon [facility] Hospital Course: Patient was admitted for chest pain and cough on 03/28/17. In the ED, labs, chest xray, and ekg were ordered. Chest xray showed no active disease, blunted costophrenic angles, and prominent cardiac silhouette. EKG showed atrial sensed ventricular-paced rhythm. ROMIs were negative times three, TSH was within normal limits, lipid panel was within normal limits, and hemoglobin A1c was 6.3. Blood cultures, strep pneumoniae, mycoplasma and legionella were ordered. Cardiology, Dr. Boogie, was consulted. Patient's home medications were continued for history of hypertension, hypothyroidism, and hyperlipidemia. Patient was started on antibiotics and nebulizer treatments. Patient's creatinine was found to be slightly elevated, likely secondary to dehydration. Patient was started on IV fluids and lasix were held. D-dimer was elevated, therefore CT angiogram was ordered- no PE on CTA. Echocardiogram was ordered and results will be reviewed as outpatient in [facility]. Patient was seen and examined at bedside in no acute distress today. Patient reports her chest pain and dyspnea resolved. Patient has no complaints and feels well. Patient was seen walking with PT/OT today without difficulty. Patient is stable for discharge to home. Patient must continue home medications as prescribed; however, must stop taking Lasix. Patient must follow up with PMD within 1-2 weeks of discharge. This is a brief summary of the hospital course. Please see EMR for more details. Discharge Exam - Head Exam Head Exam: ATRAUMATIC, NORMAL INSPECTION - Eye Exam Eye Exam: EOMI, Normal appearance - ENT Exam ENT Exam: Mucous Membranes Moist - Respiratory Exam Respiratory Exam: Clear to PA & Lateral, NORMAL BREATHING PATTERN. absent: Rales, Rhonchi, Wheezes, Respiratory Distress - Cardiovascular Exam Cardiovascular Exam: REGULAR RHYTHM, +S1, +S2 - GI/Abdominal Exam GI & Abdominal Exam: Normal Bowel Sounds, Soft, Unremarkable. absent: Distended , Tenderness - Extremities Exam Additional comments: chronic skin color changes likely secondary to venous stasis and varicose veins. - Neurological Exam Neurological exam: Alert, Oriented x3 - Psychiatric Exam Psychiatric exam: Normal Affect, Normal Mood - Skin Skin Exam: Dry, Intact, Normal Color, Warm Discharge Plan - Discharge Medications Prescriptions: Docusate [Colace] 100 mg PO BID 5 Days #10 cap hydroCHLOROthiazide [Microzide] 12.5 cap PO DAILY #30 cap Levothyroxine [Synthroid] 125 mcg PO DAILY #30 tab Losartan [Cozaar] 100 mg PO BID #30 tab Simvastatin 20 mg PO DAILY #30 tablet - Follow Up Plan Condition: STABLE Disposition: HOME/ ROUTINE Additional Instructions: Patient is stable for discharge to home. Patient must continue home medications listed below: - Hydrochlorothiazide 12.5mg PO daily- take 1 tablet by mouth daily - Synthroid 125mcg PO daily- take 1 tablet by mouth daily - Losartan 100mg PO BID- take 1 tablet by mouth twice a day - Simvastatin 20mg PO daily- take 1 tablet by mouth daily Patient must discontinue taking Lasix. Patient should take new medication, Colace 100mg PO BID, as prescribed for constipation: take 1 tablet by mouth twice a day for 5 days. Patient should follow up with PMD at [facility] within in 1-2 weeks of discharge. Patient should follow up with quality assurance associate, Dr. Boogie, within 1-2 weeks of discharge. If symptoms reoccur or worsen, patient should return to the ED. Referrals: Ishan Boogie MD [Staff Provider] - [facility] at [facility] [Outside]
--- NOTE | 2017-03-29 19:07 | CARD ---
APPROVED REPORT EKG Measurement Heart [id number] QT0T0 QTc0 <Conclusion> No QRS complexes found, no ECG analysis possible
--- NOTE | 2017-03-29 19:08 | CARD ---
APPROVED REPORT EKG Measurement Heart [id number] NC [id number] <Conclusion> Atrial-sensed ventricular-paced rhythm Abnormal ECG
--- NOTE | 2017-03-29 19:08 | CARD ---
APPROVED REPORT EKG Measurement Heart [id number] PA 198P48 [id number] <Conclusion> Atrial-sensed ventricular-paced rhythm Abnormal ECG
--- NOTE | 2017-03-29 19:08 | CARD ---
APPROVED REPORT EKG Measurement Heart [id number] PA 198P39 [id number] <Conclusion> Atrial-sensed ventricular-paced rhythm Abnormal ECG
--- NOTE | 2017-03-29 22:38 | PN ---
DATE: LOCATION: In room 658, bed B. SUBJECTIVE: Remains relatively stable from the cardiologic viewpoint. No major problems. Right sided chest pain, significantly decreased. CT to rule out pulmonary embolism was done and was negative; this was on the basis of the significantly elevated D-dimer of 350. She denies any shortness of breath. No dizziness. Rest of the review of systems otherwise negative. PHYSICAL EXAMINATION: GENERAL: Elderly female, alert and oriented, in no distress, some pain as mentioned above. VITAL SIGNS: Remains totally stable. Blood pressure 120/70, respiratory rate is unremarkable, and she is afebrile. LUNGS: Relatively clear, with some subcrepitations; other than that, relatively clear. CARDIOLOGIC: No significant change. LABORATORY DATA: Review of echocardiogram done today reveals relatively preserved left ventricular systolic function, probable borderline left ventricular hypertrophy. There is paradoxical septal motion due to the artificial pacemaker. A mild tricuspid regurgitation. ASSESSMENT: Hypertensive heart disease, pain in the right hemithorax, related to musculoskeletal in origin due to coughing, upper respiratory infection, hypertensive heart disease, status post permanent pacemaker. SUGGESTIONS: Presently totally stable from cardiologic viewpoint and ready to be discharged from [facility]. Ishan Boogie MD MTDD
--- NOTE | 2017-03-29 23:23 | CARD ---
APPROVED REPORT EXAM: Two-dimensional and M-mode echocardiogram with Doppler and color Doppler. Other Information Quality : TDSRhythm : INDICATION Chest Pain Cardiomegaly RISK FACTORS Hypertension Diabetes 2D DIMENSIONS IVSd1.9 (0.7-1.1cm)LVDd2.7 (3.9-5.9cm) PWd1.0 (0.7-1.1cm)LVDs2.2 (2.5-4.0cm) FS (%) 16.5 %LVEF (%)50.0 (>50%) M-Mode DIMENSIONS Left Atrium (MM)3.37 (2.5-4.0cm)Aortic Root3.14 (2.2-3.7cm) Aortic Cusp Exc.2.03 (1.5-2.0cm) Mitral Valve MV E Jlgnmxpp55.4cm/sMV A Hjahpsmq996.9cm/sE/A ratio0.5 TDI E/Lateral E'0.0E/Medial E'0.0 Tricuspid Valve TR Peak Sihvufzw065cj/sTR Peak Gr.[id number] LEFT VENTRICLE The left ventricle is normal size. There is borderline left ventricular hypertrophy. Left ventricle systolic function is low normal. The Ejection Fraction is 55-60%. There is mild to moderate hypokinesis in the anteroseptal wall. Transmitral Doppler flow pattern is Grade I-abnormal relaxation pattern. There is no ventricular septal defect visualized. RIGHT VENTRICLE The right ventricle is normal size. The right ventricular systolic function is normal. ATRIA The left atrium is mildly dilated. The right atrium size is normal. AORTIC VALVE The aortic valve is mildly sclerotic. The aortic valve is tri-cuspid. No aortic regurgitation is present. There is no aortic valvular stenosis. MITRAL VALVE The mitral valve is normal in structure. There is no evidence of mitral valve prolapse. Mitral regurgitation is mild. TRICUSPID VALVE The tricuspid valve is normal in structure. There is trace to mild tricuspid regurgitation. There is no pulmonary hypertension. PULMONIC VALVE The pulmonic valve is not well visualized. There is trace pulmonic valvular regurgitation. GREAT VESSELS The aortic root is mildly enlarged. 3.8 cm The ascending aorta is normal in size. The IVC is normal in size and collapses >50% with inspiration. PERICARDIAL EFFUSION There is no pericardial effusion. <Conclusion> Suboptimal study with a poor acoustic window. Left ventricle systolic function is low normal. The Ejection Fraction is 55-60%. There is mild to moderate hypokinesis in the anteroseptal wall. Transmitral Doppler flow pattern is Grade I-abnormal relaxation pattern. Mitral regurgitation is mild.
[2017-03-30] MEDS: Albuterol-Ipratrop 3 mg / 0.5 (3 ml) UD INH SCH ×4 (01:09→19:38)
[2017-03-30] MEDS: Sodium Chloride 0.9% 1,000 ML IV SCH ×2 (03:42→22:11)
[2017-03-30] MEDS: guaiFENesin 100 mg/5 ml Syrup UD PO PRN ×3 (04:58→21:17)
[2017-03-30] MEDS: Levothyroxine 125 MCG TAB PO SCH (06:14)
[2017-03-30] MEDS: Azithromycin 500 MG in Sodium Chloride 0.9% 250 ML IVPB SCH (10:05)
[2017-03-30] MEDS: Pantoprazole 40 mg EC Tab PO SCH (10:05)
[2017-03-30] MEDS: POLYETHYLENE GLYCOL 3350 17 GM/Dose PACKET PO SCH (10:14)
--- NOTE | 2017-03-30 10:53 | CP.PCM.PN ---
<Anna Turner - Last Filed: 03/30/17 13:52> Subjective - Date & Time of Evaluation Date of Evaluation: 03/30/17 Time of Evaluation: 10:49 - Subjective Subjective: Medicine Progress Note for Dr. Chavez Patient was seen and examined at bedside in no acute distress. Patient reports having a cough with phlegm. Patient has not had a bowel movement in 5 days. Patient denies having chest pain, abdominal pain, nausea, vomiting, fevers, and headaches. Patient was scheduled to be discharged home today; however, urine culture showed ESBL+. Patient will remain in the hospital for antibiotic treatment. Objective - Vital Signs/Intake and Output Vital Signs (last 24 hours): Temp Pulse Resp BP Pulse Ox 97.7 F 67 20 113/72 96 03/30/17 08:00 03/30/17 08:00 03/30/17 08:00 03/30/17 08:00 03/30/17 08:00 Intake and Output: 03/30/17 03/30/17 06:59 18:59 Intake Total 100 Balance 100 - Medications Medications: Current Medications Albuterol/Ipratropium (Duoneb 3 Mg/0.5 Mg (3 Ml) Ud) 3 ml INH RQ6 [facility] Last Admin: 03/30/17 07:20 Dose: 3 ml Aspirin (Ecotrin) 81 mg PO DAILY [facility] Last Admin: 03/30/17 10:05 Dose: 81 mg Docusate Sodium (Colace) 100 mg PO BID [facility] Last Admin: 03/30/17 10:05 Dose: 100 mg Guaifenesin (Robitussin) 100 mg PO Q4H PRN PRN Reason: Cough Last Admin: 03/30/17 10:17 Dose: 100 mg Heparin Sodium (Porcine) (Heparin) 5,000 units SC Q8 [facility] Last Admin: 03/30/17 05:00 Dose: 5,000 units Hydrochlorothiazide (Microzide) 12.5 mg PO DAILY [facility] Last Admin: 03/30/17 10:05 Dose: 12.5 mg Ceftriaxone Sodium 1 gm/ (Sodium Chloride) 100 mls @ 100 mls/hr IVPB DAILY [facility] Last Admin: 03/30/17 10:04 Dose: 100 mls/hr Sodium Chloride (Sodium Chloride 0.9%) 1,000 mls @ 50 mls/hr IV .Q20H [facility] Last Admin: 03/30/17 03:42 Dose: Not Given Azithromycin 500 mg/ Sodium (Chloride) 250 mls @ 250 mls/hr IVPB DAILY [facility] Last Admin: 03/30/17 10:05 Dose: 250 mls/hr Imipenem/Cilastatin Sodium 500 (mg/ Sodium Chloride) 100 mls @ 100 mls/hr IVPB Q6H [facility] Levothyroxine Sodium (Synthroid) 125 mcg PO DAILY@0630 [facility] Last Admin: 03/30/17 06:14 Dose: 125 mcg Losartan Potassium (Cozaar) 100 mg PO DAILY [facility] Last Admin: 03/30/17 10:05 Dose: 100 mg Pantoprazole Sodium (Protonix Ec Tab) 40 mg PO DAILY [facility] Last Admin: 03/30/17 10:05 Dose: 40 mg Pneumococcal Polyvalent Vaccine (Pneumovax 23 Vaccine) 0.5 ml IM .ONCE ONE Stop: 04/01/17 10:01 Polyethylene Glycol (Miralax) 17 gm PO DAILY [facility] Last Admin: 03/30/17 10:14 Dose: 17 gm Rosuvastatin Calcium (Crestor) 5 mg PO HS [facility] Last Admin: 03/29/17 21:23 Dose: 5 mg Saccharomyces Boulardii (Florastor) 250 mg PO BID [facility] - Labs Labs: 03/29/17 07:19 03/28/17 18:31 - Head Exam Head Exam: ATRAUMATIC, NORMAL INSPECTION - Eye Exam Eye Exam: EOMI, Normal appearance - ENT Exam ENT Exam: Mucous Membranes Moist - Respiratory Exam Respiratory Exam: NORMAL BREATHING PATTERN. absent: Rales, Rhonchi, Wheezes, Respiratory Distress, Stridor - Cardiovascular Exam Cardiovascular Exam: REGULAR RHYTHM, +S1, +S2 - GI/Abdominal Exam GI & Abdominal Exam: Soft, Normal Bowel Sounds. absent: Distended, Firm, Tenderness - Extremities Exam Extremities Exam: Normal Inspection. absent: Pedal Edema, Tenderness - Neurological Exam Neurological Exam: Alert, Awake, Oriented x3 - Psychiatric Exam Psychiatric exam: Normal Affect, Normal Mood - Skin Skin Exam: Dry, Intact, Normal Color, Warm Assessment and Plan (1) Productive cough Status: Acute (2) Dyspnea Status: Acute (3) Chest pain Status: Acute (4) ERICA (acute kidney injury) Status: Acute (5) Constipation Status: Acute (6) HLD (hyperlipidemia) Status: Acute (7) Hypothyroidism Status: Acute (8) HTN (hypertension) Status: Acute (9) ESBL (extended spectrum beta-lactamase) producing bacteria infection Status: Acute (10) Prophylactic measure Status: Acute - Assessment and Plan (Free Text) Plan: (1) Productive cough Assessment and Plan: * Likely secondary to pneumonia * BNP 196 * CXR 03/28/17 - read as no active disease; costophrenic angles are blunted and cardiac sillhouette is prominent * D dimer 369 * Chest CTA: no PE * Influenza, legionella- negative * Blood cx: negative 24hr * Azithromycin 500mg IVPB daily * Rocephin 1gm IVPB daily * Robitussin 100mg PO Q4H PRN cough * Duonebs 3ml INH RQ6 Status: Acute (2) Dyspnea * PE ruled out * D dimer 369 * Chest CTA: no PE Status: Acute (3) Chest pain Assessment and Plan: * Likely musculoskeletal v. PE v. ACS * EKG 03/28/17 - atrial paced ventricular rhythm at 83bpm * JANNA negative x 3 * EKGs: atrial-sensed ventricular-paced rhythm * ECHO: LV systolic function is low normal; EF 55-60%; mild to moderate hypokinesis in anteroseptal wall; transmitral doppler flow pattern is grade-I abnormal relaxation pattern; MR is mild * TSH 4.39, T3 1/48 (L), T4 1.31 * Lipid panel: TG 96, Cholesterol 193, LDL 118, HDL 44 * HgbA1C 6.3 * D dimer 369 * Chest CTA: no PE * Continue home ASA 81mg PO daily * Continue home simvastatin 20mg PO HS --> convert to formulary by pharmacy * Toradol 30mg IVP x1 Status: Acute (4) ERICA (acute kidney injury) Assessment and Plan: * Resolved --> Cr 0.9 on 03/28 * Creatinine 1.3 (from 0.8 last admission) * Likely secondary to dehydration * gentle hydration of NS @ 50mls/hr * Holding home Lasix 40mg PO daily * Monitor Status: Acute (5) Constipation Assessment and Plan: * Colace 100mg PO BID * Miralax 17gm PO daily Status: Acute (6) HLD (hyperlipidemia) Assessment and Plan: * Converting home simvastatin 20mg PO daily to formulary * Lipid panel: TG 96, Cholesterol 193, LDL 118, HDL 44 Status: Acute (7) Hypothyroidism Assessment and Plan: * Continue home synthroid 125mcg PO daily * TSH 4.39, T3 1/48 (L), T4 1.31 Status: Acute (8) HTN (hypertension) Assessment and Plan: * Continue home HCTZ 12.5mg PO daily * Continue home Cozaar 100mg PO daily * Controlled Status: Acute (9) ESBL Assessment and Plan: * Urine Cx: ESBL+ * Repeat urine cx in 48 hours (ordered for 04/01): f/u results * Started Imipenem 500mg IV Q6h * Florastor 250mg PO BID * Contact precautions (10) Prophylactic measure Assessment and Plan: * Protonix 40mg PO daily * Heparin 5000U SC Q8 * SCDs Status: Acute <Aquiles Chavez - Last Filed: 03/30/17 19:17> Objective - Vital Signs/Intake and Output Vital Signs (last 24 hours): Temp Pulse Resp BP Pulse Ox 98.3 F 72 18 117/75 98 03/30/17 16:00 03/30/17 16:23 03/30/17 16:00 03/30/17 16:00 03/30/17 16:00 Intake and Output: 03/30/17 03/31/17 18:59 06:59 Intake Total 300 Balance 300 - Medications Medications: Current Medications Albuterol/Ipratropium (Duoneb 3 Mg/0.5 Mg (3 Ml) Ud) 3 ml INH RQ6 [facility] Last Admin: 03/30/17 13:19 Dose: 3 ml Aspirin (Ecotrin) 81 mg PO DAILY [facility] Last Admin: 03/30/17 10:05 Dose: 81 mg Docusate Sodium (Colace) 100 mg PO BID [facility] Last Admin: 03/30/17 17:04 Dose: 100 mg Guaifenesin (Robitussin) 100 mg PO Q4H PRN PRN Reason: Cough Last Admin: 03/30/17 10:17 Dose: 100 mg Heparin Sodium (Porcine) (Heparin) 5,000 units SC Q8 [facility] Last Admin: 03/30/17 13:57 Dose: 5,000 units Hydrochlorothiazide (Microzide) 12.5 mg PO DAILY [facility] Last Admin: 03/30/17 10:05 Dose: 12.5 mg Sodium Chloride (Sodium Chloride 0.9%) 1,000 mls @ 50 mls/hr IV .Q20H [facility] Last Admin: 03/30/17 03:42 Dose: Not Given Imipenem/Cilastatin Sodium 500 (mg/ Sodium Chloride) 100 mls @ 100 mls/hr IVPB Q6H [facility] Last Admin: 03/30/17 17:05 Dose: 100 mls/hr Levothyroxine Sodium (Synthroid) 125 mcg PO DAILY@0630 [facility] Last Admin: 03/30/17 06:14 Dose: 125 mcg Losartan Potassium (Cozaar) 100 mg PO DAILY [facility] Last Admin: 03/30/17 10:05 Dose: 100 mg Pantoprazole Sodium (Protonix Ec Tab) 40 mg PO DAILY [facility] Last Admin: 03/30/17 10:05 Dose: 40 mg Pneumococcal Polyvalent Vaccine (Pneumovax 23 Vaccine) 0.5 ml IM .ONCE ONE Stop: 04/01/17 10:01 Polyethylene Glycol (Miralax) 17 gm PO DAILY [facility] Last Admin: 03/30/17 10:14 Dose: 17 gm Rosuvastatin Calcium (Crestor) 5 mg PO HS [facility] Last Admin: 03/29/17 21:23 Dose: 5 mg Saccharomyces Boulardii (Florastor) 250 mg PO BID [facility] Last Admin: 03/30/17 17:04 Dose: 250 mg - Labs Labs: 03/29/17 07:19 03/28/17 18:31 Attending/Attestation - Attestation I have personally seen and examined this patient.: Yes I have fully participated in the care of the patient.: Yes I have reviewed all pertinent clinical information, including history, physical exam and plan: Yes Notes (Text): 03/30/17 19:09 Patient was seen and examined at 2:10 PM 03/30/17 164 with Daughter Rosy present and who helped to translate Kiswahili. Exam, assessment and plan were thoroughly gone over with the resident. Also on ROS: She moved her bowels earlier this morning: it was small amount and that is why initially she stated that she had not moved her bowels NO burning/pain with urination NO increased frequency of unrination (although she explained that she had this upon presentation to the hospital) NO feeling of incomplete evacuation of the bladder NO other complaints upon full ROS Also on Exam: NO B/L CVA Tenderness Assessments: 1). ESBL E. coli UTI Imipenem 500 mg IV Q6H Repeat the Urine Culture on 04/01/17 Blood Culture is negative to date ID Dr. Chapin Ha 2). Productive Cough Guaifenesin 3). Chest Pain, Dyspnea, Elevate D-Dimer Troponin x 3 negative Resolved Echocardiogram showed LVSF normal, EF 55-60%, mild to moderate hypokinesis, Grade I abnormal relaxation pattern [employer] Dr. Boogie cleared her for discharge on 03/29/17 CT Chest Angio: NO PE Chest X Ray: NO active disease 4). ERICA Resolved NS @ 50 ml/hr was discontinued Nursing staff was ordered to encourage water intake 5). Constipation Given FLEET Enema on 03/29/17 Moved her bowels this morning Colace 6). HTN HCTZ Losartan 7). Hypothyroidism Levothyroxine 8). HLD Crestor 9). Prophylaxis ASA Protonix Florastor Heparin Aquiles Chavez D.O.
--- NOTE | 2017-03-30 11:43 | CP.PCM.PN ---
Subjective - Date & Time of Evaluation Date of Evaluation: 03/30/17 Time of Evaluation: 08:00 - Subjective Subjective: seen and examined chart reviewed consult to follow 81-year-old female, PMHx includes Anxiety, Arthritis, Diabetes, s/p pacemaker Gastritis, Hypertension, and Hypothyroidism, presents to the emergency department with complaints of coughing for the past 2-3 days, that is associated with white phlegm. Patient states that she woke up at 02:00 this morning with left-sided, non-radiating chest pain and pressure. She denies fever , diaphoresis, sick contacts, recent travel, or any other associated symptoms. No other complaints at this time. - Medical History PMH: Anxiety, Arthritis, Gastritis, Gall Bladder Disease, HTN, Hypothyroidism Surgical History: CABG, Cholecystectomy, Pacemaker (2009) Objective - Vital Signs/Intake and Output Vital Signs (last 24 hours): Temp Pulse Resp BP Pulse Ox 97.7 F 67 20 113/72 96 03/30/17 08:00 03/30/17 08:00 03/30/17 08:00 03/30/17 08:00 03/30/17 08:00 Intake and Output: 03/30/17 03/30/17 06:59 18:59 Intake Total 100 Balance 100 - Medications Medications: Current Medications Albuterol/Ipratropium (Duoneb 3 Mg/0.5 Mg (3 Ml) Ud) 3 ml INH RQ6 [facility] Last Admin: 03/30/17 07:20 Dose: 3 ml Aspirin (Ecotrin) 81 mg PO DAILY [facility] Last Admin: 03/30/17 10:05 Dose: 81 mg Docusate Sodium (Colace) 100 mg PO BID [facility] Last Admin: 03/30/17 10:05 Dose: 100 mg Guaifenesin (Robitussin) 100 mg PO Q4H PRN PRN Reason: Cough Last Admin: 03/30/17 10:17 Dose: 100 mg Heparin Sodium (Porcine) (Heparin) 5,000 units SC Q8 [facility] Last Admin: 03/30/17 05:00 Dose: 5,000 units Hydrochlorothiazide (Microzide) 12.5 mg PO DAILY [facility] Last Admin: 03/30/17 10:05 Dose: 12.5 mg Sodium Chloride (Sodium Chloride 0.9%) 1,000 mls @ 50 mls/hr IV .Q20H [facility] Last Admin: 03/30/17 03:42 Dose: Not Given Azithromycin 500 mg/ Sodium (Chloride) 250 mls @ 250 mls/hr IVPB DAILY [facility] Last Admin: 03/30/17 10:05 Dose: 250 mls/hr Imipenem/Cilastatin Sodium 500 (mg/ Sodium Chloride) 100 mls @ 100 mls/hr IVPB Q6H [facility] Last Admin: 03/30/17 11:12 Dose: 100 mls/hr Levothyroxine Sodium (Synthroid) 125 mcg PO DAILY@0630 [facility] Last Admin: 03/30/17 06:14 Dose: 125 mcg Losartan Potassium (Cozaar) 100 mg PO DAILY [facility] Last Admin: 03/30/17 10:05 Dose: 100 mg Pantoprazole Sodium (Protonix Ec Tab) 40 mg PO DAILY [facility] Last Admin: 03/30/17 10:05 Dose: 40 mg Pneumococcal Polyvalent Vaccine (Pneumovax 23 Vaccine) 0.5 ml IM .ONCE ONE Stop: 04/01/17 10:01 Polyethylene Glycol (Miralax) 17 gm PO DAILY [facility] Last Admin: 03/30/17 10:14 Dose: 17 gm Rosuvastatin Calcium (Crestor) 5 mg PO HS [facility] Last Admin: 03/29/17 21:23 Dose: 5 mg Saccharomyces Boulardii (Florastor) 250 mg PO BID [facility] - Labs Labs: 03/29/17 07:19 03/28/17 18:31 - Constitutional Appears: Non-toxic, Chronically Ill - Head Exam Head Exam: NORMOCEPHALIC - Eye Exam Eye Exam: PERRL - ENT Exam ENT Exam: Mucous Membranes Dry - Neck Exam Neck Exam: absent: Lymphadenopathy - Respiratory Exam Respiratory Exam: Decreased Breath Sounds - Cardiovascular Exam Cardiovascular Exam: REGULAR RHYTHM - GI/Abdominal Exam GI & Abdominal Exam: Distended, Soft. absent: Tenderness - Rectal Exam Rectal Exam: Deferred Assessment and Plan - Assessment and Plan (Free Text) Plan: CONT IV CARBAPENEM FOR UTI AND RESP TRACT INFECTION CONTACT ISOLATION
[2017-03-30] MEDS: Saccharomyces Boulardi 250 mg Cap PO SCH (17:04)
[2017-03-31] MEDS: Albuterol-Ipratrop 3 mg / 0.5 (3 ml) UD INH SCH ×3 (01:04→19:34)
[2017-03-31 01:23] VITALS: RESP 20
[2017-03-31] MEDS: guaiFENesin 100 mg/5 ml Syrup UD PO PRN ×2 (05:42→22:35)
[2017-03-31] MEDS: Levothyroxine 125 MCG TAB PO SCH (05:43)
[2017-03-31 07:00] LABS: BASO % 0.8 % (0.0-2.0); EOS # 0.3 K/uL (0.0-0.7); EOS % 6.4 % (0.0-4.0); HEMATOCRIT 36.1 % (34.0-47.0); LYMPH # 2.2 K/uL (1.0-4.3); MEAN CELL VOLUME 92.2 fL (81.0-99.0); MEAN CORPUSCULAR HEMOGLOBIN 31.2 pg (27.0-31.0); MEAN CORPUSCULAR HGB CONC 33.9 g/dL (33.0-37.0); MEAN PLATELET VOLUME 9.1 fL (7.2-11.7); MONO # 0.4 K/uL (0.0-0.8); MONO % 10.1 % (0.0-10.0); RED CELL DISTRIBUTION WIDTH 13.7 % (11.5-14.5); WHITE BLOOD COUNT 4.3 K/uL (4.8-10.8)
--- NOTE | 2017-03-31 07:00 | CP.PCM.PN ---
<Anna Turner - Last Filed: 03/31/17 15:45> Subjective - Date & Time of Evaluation Date of Evaluation: 03/31/17 Time of Evaluation: 07:00 - Subjective Subjective: Medicine Progress Note for Dr. Chavez Patient was seen and examined at bedside in no acute distress. Patient reports having a cough with phlegm. Patient is complaining of congestions and excessive phlegm. Patient reports having a normal bowel movement. Patient denies having dysuria, pyruria, and hematuria. Patient denies having chest pain, abdominal pain, nausea, vomiting, fevers, and headaches. Objective - Vital Signs/Intake and Output Vital Signs (last 24 hours): Temp Pulse Resp BP Pulse Ox 97.7 F 79 20 134/81 96 03/30/17 23:20 03/30/17 23:20 03/30/17 23:20 03/30/17 23:20 03/30/17 23:20 Intake and Output: 03/31/17 03/31/17 06:59 18:59 Intake Total 350 Balance 350 - Medications Medications: Current Medications Acetaminophen (Tylenol 325mg Tab) 650 mg PO Q6 PRN PRN Reason: Pain, Mild (1-3) Last Admin: 03/30/17 21:31 Dose: 650 mg Albuterol/Ipratropium (Duoneb 3 Mg/0.5 Mg (3 Ml) Ud) 3 ml INH RQ6 [facility] Last Admin: 03/31/17 01:04 Dose: 3 ml Aspirin (Ecotrin) 81 mg PO DAILY [facility] Last Admin: 03/30/17 10:05 Dose: 81 mg Docusate Sodium (Colace) 100 mg PO BID [facility] Last Admin: 03/30/17 17:04 Dose: 100 mg Guaifenesin (Robitussin) 100 mg PO Q4H PRN PRN Reason: Cough Last Admin: 03/31/17 05:42 Dose: 100 mg Heparin Sodium (Porcine) (Heparin) 5,000 units SC Q8 [facility] Last Admin: 03/31/17 05:43 Dose: 5,000 units Hydrochlorothiazide (Microzide) 12.5 mg PO DAILY [facility] Last Admin: 03/30/17 10:05 Dose: 12.5 mg Sodium Chloride (Sodium Chloride 0.9%) 1,000 mls @ 50 mls/hr IV .Q20H [facility] Last Admin: 03/30/17 22:11 Dose: Not Given Imipenem/Cilastatin Sodium 500 (mg/ Sodium Chloride) 100 mls @ 100 mls/hr IVPB Q6H [facility] Last Admin: 03/31/17 05:43 Dose: 100 mls/hr Levothyroxine Sodium (Synthroid) 125 mcg PO DAILY@0630 [facility] Last Admin: 03/30/17 06:14 Dose: 125 mcg Losartan Potassium (Cozaar) 100 mg PO DAILY [facility] Last Admin: 03/30/17 10:05 Dose: 100 mg Pantoprazole Sodium (Protonix Ec Tab) 40 mg PO DAILY [facility] Last Admin: 03/30/17 10:05 Dose: 40 mg Pneumococcal Polyvalent Vaccine (Pneumovax 23 Vaccine) 0.5 ml IM .ONCE ONE Stop: 04/01/17 10:01 Polyethylene Glycol (Miralax) 17 gm PO DAILY [facility] Last Admin: 03/30/17 10:14 Dose: 17 gm Rosuvastatin Calcium (Crestor) 5 mg PO HS [facility] Last Admin: 03/30/17 21:17 Dose: 5 mg Saccharomyces Boulardii (Florastor) 250 mg PO BID [facility] Last Admin: 03/30/17 17:04 Dose: 250 mg - Labs Labs: 03/29/17 07:19 03/28/17 18:31 - Additional Findings Additional findings: - Head Exam Head Exam: ATRAUMATIC, NORMAL INSPECTION - Eye Exam Eye Exam: EOMI, Normal appearance - ENT Exam ENT Exam: Mucous Membranes Moist - Respiratory Exam Respiratory Exam: NORMAL BREATHING PATTERN. absent: Rales, Rhonchi, Wheezes, Respiratory Distress, Stridor - Cardiovascular Exam Cardiovascular Exam: REGULAR RHYTHM, +S1, +S2 - GI/Abdominal Exam GI & Abdominal Exam: Soft, Normal Bowel Sounds. absent: Distended, Firm, Tenderness - Extremities Exam Extremities Exam: absent: Pedal Edema, Tenderness - Neurological Exam Neurological Exam: Alert, Awake, Oriented x3 - Psychiatric Exam Psychiatric exam: Normal Affect, Normal Mood - Skin Skin Exam: Dry, Intact, Normal Color, Warm Assessment and Plan (1) Productive cough Status: Acute (2) Dyspnea Status: Acute (3) Chest pain Status: Acute (4) ERICA (acute kidney injury) Status: Acute (5) Constipation Status: Acute (6) HLD (hyperlipidemia) Status: Acute (7) Hypothyroidism Status: Acute (8) HTN (hypertension) Status: Acute (9) ESBL (extended spectrum beta-lactamase) producing bacteria infection Status: Acute (10) Prophylactic measure Status: Acute - Assessment and Plan (Free Text) Plan: (1) Productive cough Assessment and Plan: * Likely secondary to pneumonia * BNP 196 * CXR 03/28/17 - read as no active disease; costophrenic angles are blunted and cardiac sillhouette is prominent * D dimer 369 * Chest CTA: no PE * Influenza, legionella- negative * Blood cx: negative 24hr * Azithromycin 500mg IVPB daily * Rocephin 1gm IVPB daily * Robitussin 100mg PO Q4H PRN cough * Duonebs 3ml INH RQ6 Status: Acute (2) Dyspnea * PE ruled out * D dimer 369 * Chest CTA: no PE Status: Acute (3) Chest pain Assessment and Plan: * Likely musculoskeletal v. PE v. ACS * EKG 03/28/17 - atrial paced ventricular rhythm at 83bpm * JANNA negative x 3 * EKGs: atrial-sensed ventricular-paced rhythm * ECHO: LV systolic function is low normal; EF 55-60%; mild to moderate hypokinesis in anteroseptal wall; transmitral doppler flow pattern is grade-I abnormal relaxation pattern; MR is mild * TSH 4.39, T3 1/48 (L), T4 1.31 * Lipid panel: TG 96, Cholesterol 193, LDL 118, HDL 44 * HgbA1C 6.3 * D dimer 369 * Chest CTA: no PE * Continue home ASA 81mg PO daily * Continue home simvastatin 20mg PO HS --> convert to formulary by pharmacy * Toradol 30mg IVP x1 Status: Acute (4) ERICA (acute kidney injury) Assessment and Plan: * Resolved --> Cr 0.9 on 03/28 * Creatinine 1.3 (from 0.8 last admission) * Likely secondary to dehydration * gentle hydration of NS @ 50mls/hr * Holding home Lasix 40mg PO daily * Monitor Status: Acute (5) Constipation Assessment and Plan: * Colace 100mg PO BID * Miralax 17gm PO daily Status: Acute (6) HLD (hyperlipidemia) Assessment and Plan: * Converting home simvastatin 20mg PO daily to formulary * Lipid panel: TG 96, Cholesterol 193, LDL 118, HDL 44 Status: Acute (7) Hypothyroidism Assessment and Plan: * Continue home synthroid 125mcg PO daily * TSH 4.39, T3 1.48 (L), T4 1.31 Status: Acute (8) HTN (hypertension) Assessment and Plan: * Continue home HCTZ 12.5mg PO daily * Continue home Cozaar 100mg PO daily * Controlled Status: Acute (9) ESBL Assessment and Plan: * Urine Cx: ESBL+ * Repeat urine cx in 48 hours (ordered for 04/01): f/u results * Started Imipenem 500mg IV Q6h * Florastor 250mg PO BID * Contact precautions (10) Prophylactic measure Assessment and Plan: * Protonix 40mg PO daily * Heparin 5000U SC Q8 * SCDs Status: Acute <Aquiles Chavez - Last Filed: 03/31/17 18:41> Objective - Vital Signs/Intake and Output Vital Signs (last 24 hours): Temp Pulse Resp BP Pulse Ox 97.7 F 80 20 122/73 99 03/31/17 16:15 03/31/17 16:15 03/31/17 16:15 03/31/17 16:15 03/31/17 16:15 Intake and Output: 03/31/17 03/31/17 06:59 18:59 Intake Total 350 Balance 350 - Medications Medications: Current Medications Acetaminophen (Tylenol 325mg Tab) 650 mg PO Q6 PRN PRN Reason: Pain, Mild (1-3) Last Admin: 03/31/17 13:21 Dose: 650 mg Albuterol/Ipratropium (Duoneb 3 Mg/0.5 Mg (3 Ml) Ud) 3 ml INH RQ6 [facility] Last Admin: 03/31/17 07:10 Dose: 3 ml Aspirin (Ecotrin) 81 mg PO DAILY [facility] Last Admin: 03/31/17 09:32 Dose: 81 mg Docusate Sodium (Colace) 100 mg PO BID [facility] Last Admin: 03/31/17 17:10 Dose: 100 mg Guaifenesin (Robitussin) 100 mg PO Q4H PRN PRN Reason: Cough Last Admin: 03/31/17 05:42 Dose: 100 mg Heparin Sodium (Porcine) (Heparin) 5,000 units SC Q8 [facility] Last Admin: 03/31/17 13:22 Dose: 5,000 units Hydrochlorothiazide (Microzide) 12.5 mg PO DAILY [facility] Last Admin: 03/31/17 09:34 Dose: Not Given Sodium Chloride (Sodium Chloride 0.9%) 1,000 mls @ 50 mls/hr IV .Q20H [facility] Last Admin: 03/30/17 22:11 Dose: Not Given Imipenem/Cilastatin Sodium 500 (mg/ Sodium Chloride) 100 mls @ 100 mls/hr IVPB Q6H [facility] Last Admin: 03/31/17 17:09 Dose: 100 mls/hr Levothyroxine Sodium (Synthroid) 125 mcg PO DAILY@0630 [facility] Last Admin: 03/31/17 05:43 Dose: 125 mcg Losartan Potassium (Cozaar) 100 mg PO DAILY [facility] Last Admin: 03/31/17 09:32 Dose: 100 mg Pantoprazole Sodium (Protonix Ec Tab) 40 mg PO DAILY [facility] Last Admin: 03/31/17 09:32 Dose: 40 mg Pneumococcal Polyvalent Vaccine (Pneumovax 23 Vaccine) 0.5 ml IM .ONCE ONE Stop: 04/01/17 10:01 Polyethylene Glycol (Miralax) 17 gm PO DAILY [facility] Last Admin: 03/31/17 09:32 Dose: 17 gm Rosuvastatin Calcium (Crestor) 5 mg PO HS [facility] Last Admin: 03/30/17 21:17 Dose: 5 mg Saccharomyces Boulardii (Florastor) 250 mg PO BID [facility] Last Admin: 03/31/17 17:10 Dose: 250 mg - Labs Labs: 03/31/17 06:48 03/31/17 06:48 Attending/Attestation - Attestation I have personally seen and examined this patient.: Yes I have fully participated in the care of the patient.: Yes I have reviewed all pertinent clinical information, including history, physical exam and plan: Yes Notes (Text): 03/31/17 18:35 Patient was seen and examined shortly after resident 03/31/17 546 with Daughter Rosy [phone] present and who helped to translate Bel[place]ian. Exam, assessment and plan were thoroughly gone over with the resident. Also on ROS: She moved her bowels and they were soft NO burning/pain with urination NO increased frequency of unrination NO feeling of incomplete evacuation of the bladder NO other complaints upon full ROS Also on Exam: NO B/L CVA Tenderness Assessments: 1). ESBL E. coli UTI Imipenem 500 mg IV Q6H Repeat the Urine Culture on 04/01/17 Blood Culture is negative to date ID Dr. Chapin Ha 2). Productive Cough Guaifenesin 3). Chest Pain, Dyspnea, Elevate D-Dimer Troponin x 3 negative Resolved Echocardiogram showed LVSF normal, EF 55-60%, mild to moderate hypokinesis, Grade I abnormal relaxation pattern Gas Specialist Dr. Boogei cleared her for discharge on 03/29/17 CT Chest Angio: NO PE Chest X Ray: NO active disease 4). ERICA Resolved NS @ 50 ml/hr was discontinued 03/30/17 Nursing staff was ordered to encourage water intake 5). Constipation Given FLEET Enema on 03/29/17 Moved her bowels this morning normally Colace 6). HTN HCTZ Losartan 7). Hypothyroidism Levothyroxine 8). HLD Crestor 9). Prophylaxis ASA Protonix Florastor Heparin Aquiles Chavez D.O.
[2017-03-31 07:52] LABS: ALB/GLOB RATIO 1.3 (1.0-2.1); ALKALINE PHOSPHATASE 63 U/L (38-126); ALT/SGPT 39 U/L (9-52); AST/SGOT 30 U/L (14-36); BILIRUBIN,TOTAL 0.4 mg/dL (0.2-1.3); BLOOD UREA NITROGEN 13 mg/dL (7-17); CALCIUM 8.1 mg/dl (8.6-10.4); CARBON DIOXIDE 33 mmol/L (22-30); CHLORIDE 103 mmol/L (98-107); GFR AFRICAN-AMERICAN > 60; GLUCOSE,RANDOM 104 mg/dL (65-105); POTASSIUM 4.1 mmol/L (3.6-5.2); SODIUM 139 mmol/L (132-148); TOTAL PROTEIN 6.5 g/dL (6.3-8.3)
[2017-03-31] MEDS: Pantoprazole 40 mg EC Tab PO SCH (09:32)
[2017-03-31] MEDS: POLYETHYLENE GLYCOL 3350 17 GM/Dose PACKET PO SCH (09:32)
[2017-03-31] MEDS: Saccharomyces Boulardi 250 mg Cap PO SCH ×2 (09:32→17:10)
[2017-03-31] MEDS ORDERED: Influenza Vaccine 60 mcg/0.5 mL SYR (4YR UP) IM ONE (10:00)
--- NOTE | 2017-03-31 17:13 | CP.PCM.CON ---
History of Present Illness - History of Present Illness History of Present Illness: 81-year-old female, PMHx includes Anxiety, Arthritis, Diabetes, s/p pacemaker Gastritis, Hypertension, and Hypothyroidism, presents to the emergency department with complaints of coughing for the past 2-3 days, that is associated with white phlegm. AT THIS TIME C/O COUGH WITH PHLEGM DENIES URINARY SYMPTOMS - Medical History PMH: Anxiety, Arthritis, Gastritis, Gall Bladder Disease, HTN, Hypothyroidism Surgical History: CABG, Cholecystectomy, Pacemaker (2009) Review of Systems - Review of Systems All systems: reviewed and no additional remarkable complaints except - Constitutional Constitutional: As Per HPI - EENT Eyes: absent: As Per HPI, Blind Spots, Blurred Vision, Change in Vision, Decreased Night Vision, Diplopia, Discharge, Dry Eye, Exophthalmos, Floaters, Irritation, Itchy Eyes, Loss of Peripheral Vision, Pain, Photophobia, Requires Corrective Lenses, Sees Flashes, Spots in Vision, Tunnel Vision, Other Visual Disturbances, Loss of Vision, Other Ears: absent: As Per HPI, Decreased Hearing, Ear Discharge, Ear Pain, Tinnitus, Abnormal Hearing, Disequilibrium, Dizziness, Other Nose/Mouth/Throat: absent: As Per HPI, Epistaxis, Nasal Congestion, Nasal Discharge, Nasal Obstruction, Nasal Trauma, Nose Pain, Post Nasal Drip, Sinus Pain, Sinus Pressure, Bleeding Gums, Change in Voice, Dental Pain, Dry Mouth, Dysphagia, Halitosis, Hoarsness, Lip Swelling, Mouth Lesions, Mouth Pain, Odynophagia, Sore Throat, Throat Swelling, Tongue Swelling, Facial Pain, Neck Pain, Neck Mass, Other - Breasts Breasts: absent: As Per HPI, Change in Shape, Mass, Pain, Nipple Discharge, Nipple Inversion, Skin Changes, Swelling, Other - Cardiovascular Cardiovascular: As Per HPI - Respiratory Respiratory: As Per HPI, Cough, Dyspnea. absent: Hemoptysis - Gastrointestinal Gastrointestinal: As Per HPI - Genitourinary Genitourinary: absent: As Per HPI, Change in Urinary Stream, Difficulty Urinating, Dysuria, Flank Pain, Hematuria, Pyuria, Nocturia, Urinary Incontinence, Urinary Frequency, Urinary Hesitance, Urinary Urgency, Voiding Freq/Small Amts, Freq UTI, Hx Renal/Bladder Calculi, Hx /Renal Surgery, Bladder Distension, Other - Reproductive: Female Reproductive:Female: absent: As Per HPI, Amenorrhea, Amenorrhea/ Control, Currently Menstual, Cycle <21 Days, Cycle >35 Days, Cycle Variable, Menses 1-7 Days, Menses >/= 8 Days, Menses Variable, Cycle > 4 Weeks Between, No Menses for 6 Months, Heavy Menses, Light Menses, Normal Menses, Spotting Between Cycles , S/P Hysterectomy, Menopausal, Post Menopausal, Premenarche, Abnormal Vaginal Bleeding, Dysmenorrhea, Dyspareunia, Genital Lesions, Genital Pruritis, Pelvic Pain, Prolapse Symptoms, Sexual Dysfunction, Vaginal Discharge, Vaginal Dryness , Vaginal Odor, Vaginal Pruritis, Other Past Patient History - Infectious Disease Hx of Infectious Diseases: None - Past Medical History & Family History Past Medical History?: Yes - Past Social History Smoking Status: Never Smoked - CARDIAC Hx Hypertension: Yes - PULMONARY Hx Respiratory Disorders: No - NEUROLOGICAL Hx Neurological Disorder: No - HEENT Hx HEENT Problems: Yes Hx Cataracts: Yes (BILATERAL CATARACT SURGERY) - RENAL Hx Chronic Kidney Disease: No - ENDOCRINE/METABOLIC Hx Hypothyroidism: Yes - HEMATOLOGICAL/ONCOLOGICAL Hx Blood Disorders: No - INTEGUMENTARY Hx Dermatological Problems: No - MUSCULOSKELETAL/RHEUMATOLOGICAL Hx Arthritis: Yes - GASTROINTESTINAL Hx Gall Bladder Disease: Yes Hx Gastritis: Yes - GENITOURINARY/GYNECOLOGICAL Hx Genitourinary Disorders: No - PSYCHIATRIC Hx Anxiety: Yes Hx Substance Use: No - SURGICAL HISTORY Hx Cholecystectomy: Yes Hx Coronary Artery Bypass Graft: Yes - ANESTHESIA Hx Anesthesia: Yes Hx Anesthesia Reactions: No Hx Malignant Hyperthermia: No Meds Home Medications: Home Medication List Medication Instructions Recorded Confirmed Type Docusate [Colace] 100 mg PO BID 5 Days #10 cap 03/29/17 Rx Levothyroxine [Synthroid] 125 mcg PO DAILY #30 tab 03/29/17 Rx Losartan [Cozaar] 100 mg PO BID #30 tab 03/29/17 Rx Simvastatin 20 mg PO DAILY #30 tablet 03/29/17 Rx hydroCHLOROthiazide [Microzide] 12.5 cap PO DAILY #30 cap 03/29/17 Rx Allergies/Adverse Reactions: Allergies Allergy/AdvReac Type Severity Reaction Status Date / Time No Known Allergies Allergy Verified 03/28/17 07:11 - Medications Medications: Current Medications Acetaminophen (Tylenol 325mg Tab) 650 mg PO Q6 PRN PRN Reason: Pain, Mild (1-3) Last Admin: 12/13/17 13:21 Dose: 650 mg Albuterol/Ipratropium (Duoneb 3 Mg/0.5 Mg (3 Ml) Ud) 3 ml INH RQ6 [facility] Last Admin: 03/31/17 07:10 Dose: 3 ml Aspirin (Ecotrin) 81 mg PO DAILY [facility] Last Admin: 03/31/17 09:32 Dose: 81 mg Docusate Sodium (Colace) 100 mg PO BID [facility] Last Admin: 03/31/17 09:32 Dose: 100 mg Guaifenesin (Robitussin) 100 mg PO Q4H PRN PRN Reason: Cough Last Admin: 03/31/17 05:42 Dose: 100 mg Heparin Sodium (Porcine) (Heparin) 5,000 units SC Q8 [facility] Last Admin: 03/31/17 13:22 Dose: 5,000 units Hydrochlorothiazide (Microzide) 12.5 mg PO DAILY [facility] Last Admin: 03/31/17 09:34 Dose: Not Given Sodium Chloride (Sodium Chloride 0.9%) 1,000 mls @ 50 mls/hr IV .Q20H [facility] Last Admin: 03/30/17 22:11 Dose: Not Given Imipenem/Cilastatin Sodium 500 (mg/ Sodium Chloride) 100 mls @ 100 mls/hr IVPB Q6H [facility] Last Admin: 03/31/17 10:11 Dose: 100 mls/hr Levothyroxine Sodium (Synthroid) 125 mcg PO DAILY@0630 [facility] Last Admin: 03/31/17 05:43 Dose: 125 mcg Losartan Potassium (Cozaar) 100 mg PO DAILY [facility] Last Admin: 03/31/17 09:32 Dose: 100 mg Pantoprazole Sodium (Protonix Ec Tab) 40 mg PO DAILY [facility] Last Admin: 03/31/17 09:32 Dose: 40 mg Pneumococcal Polyvalent Vaccine (Pneumovax 23 Vaccine) 0.5 ml IM .ONCE ONE Stop: 04/01/17 10:01 Polyethylene Glycol (Miralax) 17 gm PO DAILY [facility] Last Admin: 03/31/17 09:32 Dose: 17 gm Rosuvastatin Calcium (Crestor) 5 mg PO HS [facility] Last Admin: 03/30/17 21:17 Dose: 5 mg Saccharomyces Boulardii (Florastor) 250 mg PO BID [facility] Last Admin: 03/31/17 09:32 Dose: 250 mg Physical Exam - Constitutional Appears: Non-toxic, Chronically Ill - Head Exam Head Exam: NORMOCEPHALIC - Eye Exam Eye Exam: PERRL. absent: Scleral icterus - ENT Exam ENT Exam: Mucous Membranes Dry - Neck Exam Neck exam: Negative for: Lymphadenopathy - Respiratory Exam Respiratory Exam: Decreased Breath Sounds - Cardiovascular Exam Cardiovascular Exam: REGULAR RHYTHM, +S1, +S2 - GI/Abdominal Exam GI & Abdominal Exam: Diminished Bowel Sounds, Soft. absent: Tenderness - Rectal Exam Rectal Exam: Deferred - Exam Exam: NORMAL INSPECTION - Extremities Exam Extremities exam: Positive for: pedal pulses present. Negative for: calf tenderness, pedal edema, tenderness - Back Exam Back exam: absent: CVA tenderness (L), CVA tenderness (R) Results - Vital Signs Recent Vital Signs: Last Vital Signs Temp 97.7 F 03/31/17 16:15 Pulse 80 03/31/17 16:15 Resp 20 03/31/17 16:15 BP 122/73 03/31/17 16:15 Pulse Ox 99 03/31/17 16:15 - Labs Result Diagrams: 03/31/17 06:48 03/31/17 06:48 Labs: Laboratory Results - last 24 hr 03/31/17 03/31/17 06:48 06:48 WBC 4.3 L RBC 3.91 Hgb 12.2 Hct 36.1 MCV 92.2 MCH 31.2 H MCHC 33.9 RDW 13.7 Plt Count 179 MPV 9.1 Neut % (Auto) 31.7 L Lymph % (Auto) 51.0 H [place] % (Auto) 10.1 H Eos % (Auto) 6.4 H Baso % (Auto) 0.8 Neut # 1.4 L Lymph # 2.2 [place] # 0.4 Eos # 0.3 Baso # 0.0 Sodium 139 Potassium 4.1 Chloride 103 Carbon Dioxide 33 H Anion Gap 7 L BUN 13 Creatinine 0.8 Est GFR ( Amer) > 60 Est GFR (Non-Af Amer) > 60 Random Glucose 104 Calcium 8.1 L Total Bilirubin 0.4 AST 30 ALT 39 Alkaline Phosphatase 63 Total Protein 6.5 Albumin 3.6 Globulin 2.9 Albumin/Globulin Ratio 1.3 Assessment & Plan (1) ERICA (acute kidney injury) Status: Acute (2) Chest pain Status: Acute (3) ESBL (extended spectrum beta-lactamase) producing bacteria infection Status: Acute (4) HLD (hyperlipidemia) Status: Acute (5) Productive cough Status: Acute (6) Prophylactic measure Status: Acute - Assessment and Plan (Free Text) Assessment: CONT RX UPPER RESP INFECTION BRONCHITIS AND ? UTI NO URINE SENT ON ADMISSION WILL REPEAT
[2017-03-31 22:03] LABS: URINE BILIRUBIN NEGATIVE (NEGATIVE); URINE BLOOD NEGATIVE (NEGATIVE); URINE COLOR Straw (YELLOW); URINE GLUCOSE (UA) 1+ mg/dL (Normal); URINE KETONE NEGATIVE (NEGATIVE); URINE LEUKOCYTE ESTERASE NEG Leu/uL (Negative); URINE PROTEIN NEGATIVE (NEGATIVE); URINE UROBILINOGEN NORMAL mg/dL (0.2-1.0); WBC URINE < 1 /hpf (0-5)
[2017-03-31] MEDS: Sodium Chloride 0.9% 1,000 ML IV SCH (22:37)
[2017-04-01] MEDS: Albuterol-Ipratrop 3 mg / 0.5 (3 ml) UD INH SCH ×4 (01:06→19:21)
[2017-04-01] MEDS: Levothyroxine 125 MCG TAB PO SCH (05:31)
[2017-04-01 06:48] LABS: BASO % 0.5 % (0.0-2.0); EOS # 0.3 K/uL (0.0-0.7); EOS % 5.1 % (0.0-4.0); HEMATOCRIT 36.4 % (34.0-47.0); LYMPH # 1.8 K/uL (1.0-4.3); MEAN CORPUSCULAR HEMOGLOBIN 30.8 pg (27.0-31.0); MEAN CORPUSCULAR HGB CONC 33.1 g/dL (33.0-37.0); MEAN PLATELET VOLUME 9.4 fL (7.2-11.7); MONO # 0.4 K/uL (0.0-0.8); MONO % 8.4 % (0.0-10.0); RED CELL DISTRIBUTION WIDTH 13.6 % (11.5-14.5); WHITE BLOOD COUNT 5.2 K/uL (4.8-10.8)
[2017-04-01 06:56] LABS: ALB/GLOB RATIO 0.9 (1.0-2.1); ALKALINE PHOSPHATASE 62 U/L (38-126); ALT/SGPT 54 U/L (9-52); AST/SGOT 35 U/L (14-36); BILIRUBIN,TOTAL 0.3 mg/dL (0.2-1.3); BLOOD UREA NITROGEN 14 mg/dL (7-17); CALCIUM 8.3 mg/dl (8.6-10.4); CARBON DIOXIDE 31 mmol/L (22-30); CHLORIDE 101 mmol/L (98-107); GFR AFRICAN-AMERICAN > 60; GLUCOSE,RANDOM 121 mg/dL (65-105); POTASSIUM 4.6 mmol/L (3.6-5.2); SODIUM 136 mmol/L (132-148); TOTAL PROTEIN 7.8 g/dL (6.3-8.3)
--- NOTE | 2017-04-01 07:01 | CP.PCM.PN ---
<Anna Turner - Last Filed: 04/01/17 16:04> Subjective - Date & Time of Evaluation Date of Evaluation: 04/01/17 Time of Evaluation: 07:01 - Subjective Subjective: Medicine Progress Note for Dr. Chavez Patient was seen and examined at bedside in no acute distress. Patient reports still having a cough with phlegm, congestion and pain in the chest when coughing. Patient denies having dysuria, pyruria, and hematuria. Patient denies having chest pain, abdominal pain, nausea, vomiting, fevers, and headaches. Objective - Vital Signs/Intake and Output Vital Signs (last 24 hours): Temp Pulse Resp BP Pulse Ox 98.2 F 74 20 143/81 96 04/01/17 05:27 04/01/17 04:14 03/31/17 23:20 03/31/17 23:20 03/31/17 23:20 - Medications Medications: Current Medications Acetaminophen (Tylenol 325mg Tab) 650 mg PO Q6 PRN PRN Reason: Pain, Mild (1-3) Last Admin: 04/01/17 05:27 Dose: 650 mg Albuterol/Ipratropium (Duoneb 3 Mg/0.5 Mg (3 Ml) Ud) 3 ml INH RQ6 [facility] Last Admin: 04/01/17 01:06 Dose: 3 ml Aspirin (Ecotrin) 81 mg PO DAILY [facility] Last Admin: 03/31/17 09:32 Dose: 81 mg Docusate Sodium (Colace) 100 mg PO BID [facility] Last Admin: 03/31/17 17:10 Dose: 100 mg Guaifenesin (Robitussin) 100 mg PO Q4H PRN PRN Reason: Cough Last Admin: 03/31/17 22:35 Dose: 100 mg Heparin Sodium (Porcine) (Heparin) 5,000 units SC Q8 [facility] Last Admin: 04/01/17 05:28 Dose: 5,000 units Hydrochlorothiazide (Microzide) 12.5 mg PO DAILY [facility] Last Admin: 03/31/17 09:34 Dose: Not Given Sodium Chloride (Sodium Chloride 0.9%) 1,000 mls @ 50 mls/hr IV .Q20H [facility] Last Admin: 03/31/17 22:37 Dose: Not Given Imipenem/Cilastatin Sodium 500 (mg/ Sodium Chloride) 100 mls @ 100 mls/hr IVPB Q6H [facility] Last Admin: 04/01/17 04:37 Dose: 100 mls/hr Levothyroxine Sodium (Synthroid) 125 mcg PO DAILY@0630 [facility] Last Admin: 04/01/17 05:31 Dose: 125 mcg Losartan Potassium (Cozaar) 100 mg PO DAILY [facility] Last Admin: 03/31/17 09:32 Dose: 100 mg Pantoprazole Sodium (Protonix Ec Tab) 40 mg PO DAILY [facility] Last Admin: 03/31/17 09:32 Dose: 40 mg Pneumococcal Polyvalent Vaccine (Pneumovax 23 Vaccine) 0.5 ml IM .ONCE ONE Stop: 04/01/17 10:01 Polyethylene Glycol (Miralax) 17 gm PO DAILY [facility] Last Admin: 03/31/17 09:32 Dose: 17 gm Rosuvastatin Calcium (Crestor) 5 mg PO HS [facility] Last Admin: 03/31/17 22:35 Dose: 5 mg Saccharomyces Boulardii (Florastor) 250 mg PO BID [facility] Last Admin: 03/31/17 17:10 Dose: 250 mg - Labs Labs: 04/01/17 06:28 04/01/17 06:28 - Additional Findings Additional findings: - Head Exam Head Exam: ATRAUMATIC, NORMAL INSPECTION - Eye Exam Eye Exam: EOMI, Normal appearance - ENT Exam ENT Exam: Mucous Membranes Moist - Respiratory Exam Respiratory Exam: NORMAL BREATHING PATTERN. absent: Rales, Rhonchi, Wheezes, Respiratory Distress, Stridor - Cardiovascular Exam Cardiovascular Exam: REGULAR RHYTHM, +S1, +S2 - GI/Abdominal Exam GI & Abdominal Exam: Soft, Normal Bowel Sounds. absent: Distended, Firm, Tenderness - Extremities Exam Extremities Exam: absent: Pedal Edema, Tenderness - Neurological Exam Neurological Exam: Alert, Awake, Oriented x3 - Psychiatric Exam Psychiatric exam: Normal Affect, Normal Mood - Skin Skin Exam: Dry, Intact, Normal Color, Warm Assessment and Plan (1) Productive cough Status: Acute (2) Dyspnea Status: Acute (3) Chest pain Status: Acute (4) ERICA (acute kidney injury) Status: Acute (5) Constipation Status: Acute (6) HLD (hyperlipidemia) Status: Acute (7) Hypothyroidism Status: Acute (8) HTN (hypertension) Status: Acute (9) ESBL (extended spectrum beta-lactamase) producing bacteria infection Status: Acute (10) Prophylactic measure Status: Acute - Assessment and Plan (Free Text) Plan: (1) Productive cough Assessment and Plan: * Likely secondary to pneumonia * BNP 196 * CXR 03/28/17 - read as no active disease; costophrenic angles are blunted and cardiac sillhouette is prominent * D dimer 369 * Chest CTA: no PE * Influenza, legionella- negative * Blood cx: negative * Discontinued Azithromycin 500mg IVPB daily, Rocephin 1gm IVPB daily * Robitussin 100mg PO Q4H PRN cough * Duonebs 3ml INH RQ6 Status: Acute (2) Dyspnea * PE ruled out * D dimer 369 * Chest CTA: no PE Status: Acute (3) Chest pain Assessment and Plan: * Likely musculoskeletal v. PE v. ACS * EKG 03/28/17 - atrial paced ventricular rhythm at 83bpm * JANNA negative x 3 * EKGs: atrial-sensed ventricular-paced rhythm * ECHO: LV systolic function is low normal; EF 55-60%; mild to moderate hypokinesis in anteroseptal wall; transmitral doppler flow pattern is grade-I abnormal relaxation pattern; MR is mild * TSH 4.39, T3 1/48 (L), T4 1.31 * Lipid panel: TG 96, Cholesterol 193, LDL 118, HDL 44 * HgbA1C 6.3 * D dimer 369 * Chest CTA: no PE * Continue home ASA 81mg PO daily * Continue home simvastatin 20mg PO HS --> convert to formulary by pharmacy Status: Acute (4) ERICA (acute kidney injury) Assessment and Plan: * Resolved --> Cr 0.9 on 03/28 * Creatinine 1.3 (from 0.8 last admission) * Likely secondary to dehydration * Discontinued @ 50mls/hr * Holding home Lasix 40mg PO daily * Monitor Status: Acute (5) Constipation Assessment and Plan: * Colace 100mg PO BID * Miralax 17gm PO daily Status: Acute (6) HLD (hyperlipidemia) Assessment and Plan: * Converting home simvastatin 20mg PO daily to formulary * Lipid panel: TG 96, Cholesterol 193, LDL 118, HDL 44 Status: Acute (7) Hypothyroidism Assessment and Plan: * Continue home synthroid 125mcg PO daily * TSH 4.39, T3 1.48 (L), T4 1.31 Status: Acute (8) HTN (hypertension) Assessment and Plan: * Continue home HCTZ 12.5mg PO daily * Continue home Cozaar 100mg PO daily * Controlled Status: Acute (9) ESBL Assessment and Plan: * Urine Cx: ESBL+ * Continue Primaxin 500mg IV Q6h (started on 03/30) * Florastor 250mg PO BID * Contact precautions * Repeat urine cx in 48 hours (ordered for 04/01): f/u results * As per Dr. Ha, patient should complete a total of 5 days of Primaxin. Last dose will be administered on 04/03/17. (10) Prophylactic measure Assessment and Plan: * Protonix 40mg PO daily * Heparin 5000U SC Q8 * SCDs Status: Acute <Aquiles Chavez - Last Filed: 04/01/17 18:02> Objective - Vital Signs/Intake and Output Vital Signs (last 24 hours): Temp Pulse Resp BP Pulse Ox 97.8 F 81 20 125/77 98 04/01/17 15:36 04/01/17 16:00 04/01/17 15:36 04/01/17 15:36 04/01/17 15:36 Intake and Output: 04/01/17 04/01/17 06:59 18:59 Intake Total 810 Balance 810 - Medications Medications: Current Medications Acetaminophen (Tylenol 325mg Tab) 650 mg PO Q6 PRN PRN Reason: Pain, Mild (1-3) Last Admin: 04/01/17 13:05 Dose: 650 mg Albuterol/Ipratropium (Duoneb 3 Mg/0.5 Mg (3 Ml) Ud) 3 ml INH RQ6 [facility] Last Admin: 04/01/17 13:24 Dose: 3 ml Aspirin (Ecotrin) 81 mg PO DAILY [facility] Last Admin: 04/01/17 09:53 Dose: 81 mg Docusate Sodium (Colace) 100 mg PO BID [facility] Last Admin: 04/01/17 17:16 Dose: 100 mg Fluticasone Propionate (Flonase) 1 spr KAYLI DAILY [facility] Last Admin: 04/01/17 10:48 Dose: 1 spr Guaifenesin (Robitussin) 100 mg PO Q4H PRN PRN Reason: Cough Last Admin: 04/01/17 09:54 Dose: 100 mg Heparin Sodium (Porcine) (Heparin) 5,000 units SC Q8 [facility] Last Admin: 04/01/17 13:05 Dose: 5,000 units Hydrochlorothiazide (Microzide) 12.5 mg PO DAILY [facility] Last Admin: 04/01/17 09:53 Dose: 12.5 mg Imipenem/Cilastatin Sodium 500 (mg/ Sodium Chloride) 100 mls @ 100 mls/hr IVPB Q6H [facility] Last Admin: 04/01/17 17:16 Dose: 100 mls/hr Levothyroxine Sodium (Synthroid) 125 mcg PO DAILY@0630 [facility] Last Admin: 04/01/17 05:31 Dose: 125 mcg Losartan Potassium (Cozaar) 100 mg PO DAILY [facility] Last Admin: 04/01/17 09:54 Dose: 100 mg Pantoprazole Sodium (Protonix Ec Tab) 40 mg PO DAILY [facility] Last Admin: 04/01/17 09:53 Dose: 40 mg Polyethylene Glycol (Miralax) 17 gm PO DAILY [facility] Last Admin: 04/01/17 10:00 Dose: Not Given Rosuvastatin Calcium (Crestor) 5 mg PO HS [facility] Last Admin: 03/31/17 22:35 Dose: 5 mg Saccharomyces Boulardii (Florastor) 250 mg PO BID [facility] Last Admin: 04/01/17 17:16 Dose: 250 mg - Labs Labs: 04/01/17 06:28 04/01/17 06:28 Attending/Attestation - Attestation I have personally seen and examined this patient.: Yes I have fully participated in the care of the patient.: Yes I have reviewed all pertinent clinical information, including history, physical exam and plan: Yes Notes (Text): 04/01/17 17:57 Patient was seen and examined shortly after resident 04/01/17 654 Exam, assessment and plan were thoroughly gone over with the resident. Also on ROS: She moved her bowels and they were soft NO burning/pain with urination NO increased frequency of urination NO feeling of incomplete evacuation of the bladder Nasal congestion with clear rhinorrhea Cough with small amount of white sputum production Also on Exam: NO B/L CVA Tenderness HEENT: NO pharyngeal erythema/exudate, NO cervical/supraclavicular/ submandibular lympadenopathy, Nasal Turbinates are mildly edematous/erythematous Assessments: 1). ESBL E. coli UTI Imipenem 500 mg IV Q6H F/U repeat Urine Culture that was done this morning 04/01/17 Blood Culture is negative to date ID Dr. Chapin Ha: may discharge on 04/03/17 after 5 days of IV Impenem 2). Productive Cough/Nasal Congestion Guaifenesin PRN Flonase F/U repeat Chest X Ray 3). Chest Pain, Dyspnea, Elevate D-Dimer Troponin x 3 negative Resolved Echocardiogram showed LVSF normal, EF 55-60%, mild to moderate hypokinesis, Grade I abnormal relaxation pattern Detail Assembler Dr. Boogie cleared her for discharge on 03/29/17 CT Chest Angio: NO PE Chest X Ray: NO active disease 4). ERICA Resolved NS @ 50 ml/hr was discontinued 03/30/17 Nursing staff was ordered to encourage water intake 5). Constipation Resolved Given FLEET Enema on 03/29/17 Moved her bowels this morning normally Colace 6). HTN HCTZ Losartan 7). Hypothyroidism Levothyroxine 8). HLD Crestor 9). Prophylaxis ASA Protonix Florastor Heparin Tylenol PRN Aquiles Chavez D.O.
[2017-04-01] MEDS: Pantoprazole 40 mg EC Tab PO SCH (09:53)
[2017-04-01] MEDS: Saccharomyces Boulardi 250 mg Cap PO SCH ×2 (09:54→17:16)
[2017-04-01] MEDS: POLYETHYLENE GLYCOL 3350 17 GM/Dose PACKET PO SCH ×2 (09:54→10:00)
[2017-04-01] MEDS: guaiFENesin 100 mg/5 ml Syrup UD PO PRN (09:54)
[2017-04-01] MEDS ORDERED: Pneumococcal 23-Valent Vaccine IM ONE (10:00)
[2017-04-01] MEDS: Fluticasone Nasal 50 mcg/Spray NAS SCH (10:48)
--- NOTE | 2017-04-01 16:56 | RAD ---
HISTORY: Persistent cough productive COMPARISON: 03/28/2017 TECHNIQUE: Chest PA and lateral FINDINGS: LUNGS: No consolidation. PLEURA: No significant pleural effusion identified. No pneumothorax apparent. CARDIOVASCULAR: Mild cardiomegaly. Thoracic aortic calcifications. Pacemaker with multiple leads -similar-appearing. Pulmonary vasculature not grossly congested OSSEOUS STRUCTURES: Thoracic spondylosis. Bilateral shoulder arthrosis VISUALIZED UPPER ABDOMEN: Normal. OTHER FINDINGS: None. IMPRESSION: No active disease.
--- NOTE | 2017-04-01 18:07 | CP.PCM.PN ---
Subjective - Date & Time of Evaluation Date of Evaluation: 04/01/17 Time of Evaluation: 09:00 - Subjective Subjective: improving afeb less sob no UTI symptoms Objective - Vital Signs/Intake and Output Vital Signs (last 24 hours): Temp Pulse Resp BP Pulse Ox 97.8 F 81 20 125/77 98 04/01/17 15:36 04/01/17 16:00 04/01/17 15:36 04/01/17 15:36 04/01/17 15:36 Intake and Output: 04/01/17 04/01/17 06:59 18:59 Intake Total 810 Balance 810 - Medications Medications: Current Medications Acetaminophen (Tylenol 325mg Tab) 650 mg PO Q6 PRN PRN Reason: Pain, Mild (1-3) Last Admin: 04/01/17 13:05 Dose: 650 mg Albuterol/Ipratropium (Duoneb 3 Mg/0.5 Mg (3 Ml) Ud) 3 ml INH RQ6 [facility] Last Admin: 04/01/17 13:24 Dose: 3 ml Aspirin (Ecotrin) 81 mg PO DAILY [facility] Last Admin: 04/01/17 09:53 Dose: 81 mg Docusate Sodium (Colace) 100 mg PO BID [facility] Last Admin: 04/01/17 17:16 Dose: 100 mg Fluticasone Propionate (Flonase) 1 spr KAYLI DAILY [facility] Last Admin: 04/01/17 10:48 Dose: 1 spr Guaifenesin (Robitussin) 100 mg PO Q4H PRN PRN Reason: Cough Last Admin: 04/01/17 09:54 Dose: 100 mg Heparin Sodium (Porcine) (Heparin) 5,000 units SC Q8 [facility] Last Admin: 04/01/17 13:05 Dose: 5,000 units Hydrochlorothiazide (Microzide) 12.5 mg PO DAILY [facility] Last Admin: 04/01/17 09:53 Dose: 12.5 mg Imipenem/Cilastatin Sodium 500 (mg/ Sodium Chloride) 100 mls @ 100 mls/hr IVPB Q6H [facility] Last Admin: 04/01/17 17:16 Dose: 100 mls/hr Levothyroxine Sodium (Synthroid) 125 mcg PO DAILY@0630 [facility] Last Admin: 04/01/17 05:31 Dose: 125 mcg Losartan Potassium (Cozaar) 100 mg PO DAILY [facility] Last Admin: 04/01/17 09:54 Dose: 100 mg Pantoprazole Sodium (Protonix Ec Tab) 40 mg PO DAILY [facility] Last Admin: 04/01/17 09:53 Dose: 40 mg Polyethylene Glycol (Miralax) 17 gm PO DAILY [facility] Last Admin: 04/01/17 10:00 Dose: Not Given Rosuvastatin Calcium (Crestor) 5 mg PO HS [facility] Last Admin: 03/31/17 22:35 Dose: 5 mg Saccharomyces Boulardii (Florastor) 250 mg PO BID [facility] Last Admin: 04/01/17 17:16 Dose: 250 mg - Labs Labs: 04/01/17 06:28 04/01/17 06:28 - Constitutional Appears: Non-toxic, Cachectic, Chronically Ill - Eye Exam Eye Exam: absent: Scleral icterus - ENT Exam ENT Exam: Mucous Membranes Dry, Normal External Ear Exam - Neck Exam Neck Exam: absent: Lymphadenopathy - Respiratory Exam Respiratory Exam: Decreased Breath Sounds - Cardiovascular Exam Cardiovascular Exam: REGULAR RHYTHM - GI/Abdominal Exam GI & Abdominal Exam: Distended, Soft - Rectal Exam Rectal Exam: Deferred - Exam Exam: NORMAL INSPECTION Assessment and Plan (1) ERICA (acute kidney injury) Status: Acute (2) Chest pain Status: Acute (3) ESBL (extended spectrum beta-lactamase) producing bacteria infection Status: Acute (4) HLD (hyperlipidemia) Status: Acute (5) Productive cough Status: Acute (6) Prophylactic measure Status: Acute
[2017-04-02] MEDS: Albuterol-Ipratrop 3 mg / 0.5 (3 ml) UD INH SCH ×4 (01:27→19:27)
[2017-04-02] MEDS: Levothyroxine 125 MCG TAB PO SCH (05:53)
[2017-04-02] MEDS: guaiFENesin 100 mg/5 ml Syrup UD PO PRN (05:53)
[2017-04-02 06:29] LABS: BASO % 0.8 % (0.0-2.0); EOS # 0.2 K/uL (0.0-0.7); EOS % 5.1 % (0.0-4.0); HEMATOCRIT 35.2 % (34.0-47.0); LYMPH # 2.1 K/uL (1.0-4.3); LYMPH % 43.3 % (20.0-40.0); MEAN CELL VOLUME 92.3 fL (81.0-99.0); MEAN CORPUSCULAR HEMOGLOBIN 30.7 pg (27.0-31.0); MEAN CORPUSCULAR HGB CONC 33.3 g/dL (33.0-37.0); MEAN PLATELET VOLUME 8.8 fL (7.2-11.7); MONO # 0.4 K/uL (0.0-0.8); MONO % 7.8 % (0.0-10.0); RED CELL DISTRIBUTION WIDTH 13.9 % (11.5-14.5); WHITE BLOOD COUNT 4.8 K/uL (4.8-10.8)
--- NOTE | 2017-04-02 06:56 | CP.PCM.PN ---
<Anna Turner - Last Filed: 04/02/17 15:02> Subjective - Date & Time of Evaluation Date of Evaluation: 04/02/17 Time of Evaluation: 06:56 - Subjective Subjective: Medicine Progress Note for Dr. Chavez Patient was seen and examined at bedside in no acute distress. Patient reports still having a cough with phlegm and chest pain when coughing, but it has improved since yesterday. Patient denies having dysuria, pyruria, and hematuria. Patient denies having chest pain, abdominal pain, nausea, vomiting, fevers, and headaches. Objective - Vital Signs/Intake and Output Vital Signs (last 24 hours): Temp Pulse Resp BP Pulse Ox 97.4 F L 62 20 128/74 99 04/01/17 23:20 04/02/17 04:13 04/01/17 23:20 04/01/17 23:20 04/01/17 23:20 Intake and Output: 04/01/17 04/02/17 18:59 06:59 Intake Total 220 Balance 220 - Medications Medications: Current Medications Acetaminophen (Tylenol 325mg Tab) 650 mg PO Q6 PRN PRN Reason: Pain, Mild (1-3) Last Admin: 04/01/17 19:03 Dose: 650 mg Albuterol/Ipratropium (Duoneb 3 Mg/0.5 Mg (3 Ml) Ud) 3 ml INH RQ6 [facility] Last Admin: 04/02/17 01:27 Dose: Not Given Aspirin (Ecotrin) 81 mg PO DAILY [facility] Last Admin: 04/01/17 09:53 Dose: 81 mg Docusate Sodium (Colace) 100 mg PO BID [facility] Last Admin: 04/01/17 17:16 Dose: 100 mg Fluticasone Propionate (Flonase) 1 spr KAYLI DAILY [facility] Last Admin: 04/01/17 10:48 Dose: 1 spr Guaifenesin (Robitussin) 100 mg PO Q4H PRN PRN Reason: Cough Last Admin: 04/02/17 05:53 Dose: 100 mg Heparin Sodium (Porcine) (Heparin) 5,000 units SC Q8 [facility] Last Admin: 04/02/17 05:53 Dose: 5,000 units Hydrochlorothiazide (Microzide) 12.5 mg PO DAILY [facility] Last Admin: 04/01/17 09:53 Dose: 12.5 mg Imipenem/Cilastatin Sodium 500 (mg/ Sodium Chloride) 100 mls @ 100 mls/hr IVPB Q6H [facility] Last Admin: 04/02/17 05:05 Dose: 100 mls/hr Levothyroxine Sodium (Synthroid) 125 mcg PO DAILY@0630 [facility] Last Admin: 04/02/17 05:53 Dose: 125 mcg Losartan Potassium (Cozaar) 100 mg PO DAILY [facility] Last Admin: 04/01/17 09:54 Dose: 100 mg Pantoprazole Sodium (Protonix Ec Tab) 40 mg PO DAILY [facility] Last Admin: 04/01/17 09:53 Dose: 40 mg Polyethylene Glycol (Miralax) 17 gm PO DAILY [facility] Last Admin: 04/01/17 10:00 Dose: Not Given Rosuvastatin Calcium (Crestor) 5 mg PO HS [facility] Last Admin: 04/01/17 22:24 Dose: 5 mg Saccharomyces Boulardii (Florastor) 250 mg PO BID [facility] Last Admin: 04/01/17 17:16 Dose: 250 mg - Labs Labs: 04/02/17 06:19 04/01/17 06:28 - Additional Findings Additional findings: - Head Exam Head Exam: ATRAUMATIC, NORMAL INSPECTION - Eye Exam Eye Exam: EOMI, Normal appearance - ENT Exam ENT Exam: Mucous Membranes Moist - Respiratory Exam Respiratory Exam: NORMAL BREATHING PATTERN. absent: Rales, Rhonchi, Wheezes, Respiratory Distress, Stridor - Cardiovascular Exam Cardiovascular Exam: REGULAR RHYTHM, +S1, +S2 - GI/Abdominal Exam GI & Abdominal Exam: Soft, Normal Bowel Sounds. absent: Distended, Firm, Tenderness - Extremities Exam Extremities Exam: absent: Pedal Edema, Tenderness - Neurological Exam Neurological Exam: Alert, Awake, Oriented x3 - Psychiatric Exam Psychiatric exam: Normal Affect, Normal Mood - Skin Skin Exam: Dry, Intact, Normal Color, Warm Assessment and Plan (1) Productive cough Status: Acute (2) Dyspnea Status: Acute (3) Chest pain Status: Acute (4) ERICA (acute kidney injury) Status: Acute (5) Constipation Status: Acute (6) HLD (hyperlipidemia) Status: Acute (7) Hypothyroidism Status: Acute (8) HTN (hypertension) Status: Acute (9) ESBL (extended spectrum beta-lactamase) producing bacteria infection Status: Acute (10) Prophylactic measure Status: Acute - Assessment and Plan (Free Text) Plan: (1) Productive cough Assessment and Plan: * Likely secondary to pneumonia * BNP 196 * CXR 03/28/17 - read as no active disease; costophrenic angles are blunted and cardiac sillhouette is prominent * D dimer 369 * Chest CTA: no PE * Influenza, legionella- negative * Blood cx: negative * Discontinued Azithromycin 500mg IVPB daily, Rocephin 1gm IVPB daily * Robitussin 100mg PO Q4H PRN cough * Duonebs 3ml INH RQ6 Status: Acute (2) Dyspnea * PE ruled out * D dimer 369 * Chest CTA: no PE Status: Acute (3) Chest pain Assessment and Plan: * Likely musculoskeletal v. PE v. ACS * EKG 03/28/17 - atrial paced ventricular rhythm at 83bpm * JANNA negative x 3 * EKGs: atrial-sensed ventricular-paced rhythm * ECHO: LV systolic function is low normal; EF 55-60%; mild to moderate hypokinesis in anteroseptal wall; transmitral doppler flow pattern is grade-I abnormal relaxation pattern; MR is mild * TSH 4.39, T3 1/48 (L), T4 1.31 * Lipid panel: TG 96, Cholesterol 193, LDL 118, HDL 44 * HgbA1C 6.3 * D dimer 369 * Chest CTA: no PE * Continue home ASA 81mg PO daily * Continue home simvastatin 20mg PO HS --> convert to formulary by pharmacy Status: Acute (4) ERICA (acute kidney injury) Assessment and Plan: * Resolved --> Cr 0.9 on 03/28 * Creatinine 1.3 (from 0.8 last admission) * Likely secondary to dehydration * Discontinued @ 50mls/hr * Holding home Lasix 40mg PO daily * Monitor Status: Acute (5) Constipation Assessment and Plan: * Colace 100mg PO BID * Miralax 17gm PO daily Status: Acute (6) HLD (hyperlipidemia) Assessment and Plan: * Converting home simvastatin 20mg PO daily to formulary * Lipid panel: TG 96, Cholesterol 193, LDL 118, HDL 44 Status: Acute (7) Hypothyroidism Assessment and Plan: * Continue home synthroid 125mcg PO daily * TSH 4.39, T3 1.48 (L), T4 1.31 Status: Acute (8) HTN (hypertension) Assessment and Plan: * Continue home HCTZ 12.5mg PO daily * Continue home Cozaar 100mg PO daily * Controlled Status: Acute (9) ESBL Assessment and Plan: * Urine Cx: ESBL+ * Continue Primaxin 500mg IV Q6h (started on 03/30) * Florastor 250mg PO BID * Contact precautions * Repeat urine cx in 48 hours (ordered on 04/01): f/u results * As per Dr. Ha, patient should complete a total of 5 days of Primaxin. Last dose will be administered on 04/03/17. (10) Prophylactic measure Assessment and Plan: * Protonix 40mg PO daily * Heparin 5000U SC Q8 * SCDs Status: Acute <Aquiles Chavez - Last Filed: 04/02/17 20:19> Objective - Vital Signs/Intake and Output Vital Signs (last 24 hours): Temp Pulse Resp BP Pulse Ox 97.9 F 89 20 116/65 98 04/02/17 15:45 04/02/17 17:16 04/02/17 15:45 04/02/17 15:45 04/02/17 15:45 - Medications Medications: Current Medications Acetaminophen (Tylenol 325mg Tab) 650 mg PO Q6 PRN PRN Reason: Pain, Mild (1-3) Last Admin: 04/01/17 19:03 Dose: 650 mg Albuterol/Ipratropium (Duoneb 3 Mg/0.5 Mg (3 Ml) Ud) 3 ml INH RQ6 [facility] Last Admin: 04/02/17 19:27 Dose: 3 ml Aspirin (Ecotrin) 81 mg PO DAILY [facility] Last Admin: 04/02/17 09:49 Dose: 81 mg Docusate Sodium (Colace) 100 mg PO BID [facility] Last Admin: 04/02/17 17:38 Dose: 100 mg Fluticasone Propionate (Flonase) 1 spr KAYLI DAILY [facility] Last Admin: 04/02/17 09:50 Dose: 1 spr Guaifenesin (Robitussin) 100 mg PO Q4H PRN PRN Reason: Cough Last Admin: 04/02/17 05:53 Dose: 100 mg Heparin Sodium (Porcine) (Heparin) 5,000 units SC Q8 [facility] Last Admin: 04/02/17 14:46 Dose: 5,000 units Hydrochlorothiazide (Microzide) 12.5 mg PO DAILY [facility] Last Admin: 04/02/17 09:49 Dose: 12.5 mg Imipenem/Cilastatin Sodium 500 (mg/ Sodium Chloride) 100 mls @ 100 mls/hr IVPB Q6H [facility] Last Admin: 04/02/17 17:38 Dose: 100 mls/hr Levothyroxine Sodium (Synthroid) 125 mcg PO DAILY@0630 [facility] Last Admin: 04/02/17 05:53 Dose: 125 mcg Losartan Potassium (Cozaar) 100 mg PO DAILY [facility] Last Admin: 04/02/17 09:49 Dose: 100 mg Pantoprazole Sodium (Protonix Ec Tab) 40 mg PO DAILY [facility] Last Admin: 04/02/17 09:49 Dose: 40 mg Polyethylene Glycol (Miralax) 17 gm PO DAILY [facility] Last Admin: 04/02/17 09:51 Dose: Not Given Rosuvastatin Calcium (Crestor) 5 mg PO HS [facility] Last Admin: 04/01/17 22:24 Dose: 5 mg Saccharomyces Boulardii (Florastor) 250 mg PO BID [facility] Last Admin: 04/02/17 17:38 Dose: 250 mg - Labs Labs: 04/02/17 06:19 04/02/17 06:19 Attending/Attestation - Attestation I have personally seen and examined this patient.: Yes I have fully participated in the care of the patient.: Yes I have reviewed all pertinent clinical information, including history, physical exam and plan: Yes Notes (Text): 04/02/17 20:15 Patient was seen and examined at 4:45 PM 04/02/17 654 Exam, assessment and plan were thoroughly gone over with the resident. Also on ROS: She moved her bowels and they were soft NO burning/pain with urination NO increased frequency of urination NO feeling of incomplete evacuation of the bladder Nasal congestion with clear rhinorrhea has improved with the Flonase Cough with small amount of white sputum production has lessened Also on Exam: NO B/L CVA Tenderness HEENT: NO pharyngeal erythema/exudate, NO cervical/supraclavicular/ submandibular lympadenopathy, Nasal Turbinates are mildly edematous/erythematous Assessments: 1). ESBL E. coli UTI Imipenem 500 mg IV Q6H F/U repeat Urine Culture that was done this morning 04/01/17 Blood Culture is negative to date ID Dr. Chapin Ha: may discharge on 04/03/17 after 5 days of IV Impenem Status: Acute 2). Productive Cough/Nasal Congestion Guaifenesin PRN Flonase Repeat Chest X Ray Status: Acute 3). Chest Pain, Dyspnea, Elevate D-Dimer Troponin x 3 negative Resolved Echocardiogram showed LVSF normal, EF 55-60%, mild to moderate hypokinesis, Grade I abnormal relaxation pattern Pharmacy Picking Tech Dr. Boogie cleared her for discharge on 03/29/17 CT Chest Angio: NO PE Chest X Ray 04/01/17: NO active disease Status: Acute 4). ERICA Resolved NS @ 50 ml/hr was discontinued 03/30/17 Nursing staff was ordered to encourage water intake Status: Acute 5). Constipation Resolved Given FLEET Enema on 03/29/17 Moved her bowels this morning normally Colace Status: Acute 6). HTN HCTZ Losartan Status: Chronic 7). Hypothyroidism Levothyroxine Status: Chronic 8). HLD Crestor Status: Chronic 9). Prophylaxis ASA Protonix Florastor Heparin Tylenol PRN Status: Acute Disposition: Patient is for discharge at 6 PM 04/03/17 after last dose of Imipenem. Repeat Urine Culture 04/01/17 showed NO GROWTH. Medicine Team will reach out to ID Dr. Ha to see if any further oral PO is still required for this multidrug resistan ESBL E. coli for which patient is asymptomatic. Aquiles Chavez D.O.
[2017-04-02 07:33] LABS: ALB/GLOB RATIO 1.3 (1.0-2.1); ALKALINE PHOSPHATASE 68 U/L (38-126); ALT/SGPT 71 U/L (9-52); AST/SGOT 69 U/L (14-36); BILIRUBIN,TOTAL 0.5 mg/dL (0.2-1.3); BLOOD UREA NITROGEN 11 mg/dL (7-17); CALCIUM 8.1 mg/dl (8.6-10.4); CARBON DIOXIDE 33 mmol/L (22-30); CHLORIDE 101 mmol/L (98-107); GFR AFRICAN-AMERICAN > 60; GLUCOSE,RANDOM 97 mg/dL (65-105); POTASSIUM 4.2 mmol/L (3.6-5.2); SODIUM 138 mmol/L (132-148); TOTAL PROTEIN 6.4 g/dL (6.3-8.3)
[2017-04-02] MEDS: Pantoprazole 40 mg EC Tab PO SCH (09:49)
[2017-04-02] MEDS: Saccharomyces Boulardi 250 mg Cap PO SCH ×2 (09:50→17:38)
[2017-04-02] MEDS: Fluticasone Nasal 50 mcg/Spray NAS SCH (09:50)
[2017-04-02] MEDS: POLYETHYLENE GLYCOL 3350 17 GM/Dose PACKET PO SCH (09:51)
--- NOTE | 2017-04-02 16:55 | CP.PCM.PN ---
Subjective - Date & Time of Evaluation Date of Evaluation: 04/02/17 Time of Evaluation: 08:00 - Subjective Subjective: no UTI symptoms coughing less NAD Objective - Vital Signs/Intake and Output Vital Signs (last 24 hours): Temp Pulse Resp BP Pulse Ox 97.9 F 75 20 116/65 98 04/02/17 15:45 04/02/17 15:45 04/02/17 15:45 04/02/17 15:45 04/02/17 15:45 Intake and Output: 04/02/17 04/02/17 06:59 18:59 Intake Total 220 Balance 220 - Medications Medications: Current Medications Acetaminophen (Tylenol 325mg Tab) 650 mg PO Q6 PRN PRN Reason: Pain, Mild (1-3) Last Admin: 04/01/17 19:03 Dose: 650 mg Albuterol/Ipratropium (Duoneb 3 Mg/0.5 Mg (3 Ml) Ud) 3 ml INH RQ6 [facility] Last Admin: 04/02/17 13:45 Dose: 3 ml Aspirin (Ecotrin) 81 mg PO DAILY [facility] Last Admin: 04/02/17 09:49 Dose: 81 mg Docusate Sodium (Colace) 100 mg PO BID [facility] Last Admin: 04/02/17 09:49 Dose: 100 mg Fluticasone Propionate (Flonase) 1 spr KAYLI DAILY [facility] Last Admin: 04/02/17 09:50 Dose: 1 spr Guaifenesin (Robitussin) 100 mg PO Q4H PRN PRN Reason: Cough Last Admin: 04/02/17 05:53 Dose: 100 mg Heparin Sodium (Porcine) (Heparin) 5,000 units SC Q8 [facility] Last Admin: 04/02/17 14:46 Dose: 5,000 units Hydrochlorothiazide (Microzide) 12.5 mg PO DAILY [facility] Last Admin: 04/02/17 09:49 Dose: 12.5 mg Imipenem/Cilastatin Sodium 500 (mg/ Sodium Chloride) 100 mls @ 100 mls/hr IVPB Q6H [facility] Last Admin: 04/02/17 09:50 Dose: 100 mls/hr Levothyroxine Sodium (Synthroid) 125 mcg PO DAILY@0630 [facility] Last Admin: 04/02/17 05:53 Dose: 125 mcg Losartan Potassium (Cozaar) 100 mg PO DAILY [facility] Last Admin: 04/02/17 09:49 Dose: 100 mg Pantoprazole Sodium (Protonix Ec Tab) 40 mg PO DAILY [facility] Last Admin: 04/02/17 09:49 Dose: 40 mg Polyethylene Glycol (Miralax) 17 gm PO DAILY [facility] Last Admin: 04/02/17 09:51 Dose: Not Given Rosuvastatin Calcium (Crestor) 5 mg PO HS [facility] Last Admin: 04/01/17 22:24 Dose: 5 mg Saccharomyces Boulardii (Florastor) 250 mg PO BID [facility] Last Admin: 04/02/17 09:50 Dose: 250 mg - Labs Labs: 04/02/17 06:19 04/02/17 06:19 - Constitutional Appears: Non-toxic, Chronically Ill - Head Exam Head Exam: NORMOCEPHALIC - Eye Exam Eye Exam: PERRL - ENT Exam ENT Exam: Mucous Membranes Dry - Cardiovascular Exam Cardiovascular Exam: REGULAR RHYTHM - GI/Abdominal Exam GI & Abdominal Exam: Distended, Soft. absent: Tenderness - Rectal Exam Rectal Exam: Deferred - Exam Exam: NORMAL INSPECTION Assessment and Plan (1) ERICA (acute kidney injury) Status: Acute (2) Chest pain Status: Acute (3) ESBL (extended spectrum beta-lactamase) producing bacteria infection Status: Acute (4) HLD (hyperlipidemia) Status: Acute (5) Productive cough Status: Acute (6) Prophylactic measure Status: Acute - Assessment and Plan (Free Text) Assessment: possible d/c on orals
[2017-04-03] MEDS: Albuterol-Ipratrop 3 mg / 0.5 (3 ml) UD INH SCH ×3 (01:59→13:30)
[2017-04-03] MEDS: Levothyroxine 125 MCG TAB PO SCH (05:37)
[2017-04-03 06:27] LABS: BASO % 0.7 % (0.0-2.0); EOS # 0.2 K/uL (0.0-0.7); EOS % 4.5 % (0.0-4.0); HEMATOCRIT 33.7 % (34.0-47.0); LYMPH # 1.9 K/uL (1.0-4.3); MEAN CELL VOLUME 92.2 fL (81.0-99.0); MEAN CORPUSCULAR HEMOGLOBIN 31.5 pg (27.0-31.0); MEAN CORPUSCULAR HGB CONC 34.1 g/dL (33.0-37.0); MEAN PLATELET VOLUME 8.9 fL (7.2-11.7); MONO # 0.5 K/uL (0.0-0.8); MONO % 8.5 % (0.0-10.0); RED CELL DISTRIBUTION WIDTH 13.7 % (11.5-14.5); WHITE BLOOD COUNT 5.4 K/uL (4.8-10.8)
[2017-04-03 06:48] LABS: ALB/GLOB RATIO 1.3 (1.0-2.1); ALKALINE PHOSPHATASE 63 U/L (38-126); ALT/SGPT 83 U/L (9-52); AST/SGOT 85 U/L (14-36); BILIRUBIN,TOTAL 0.4 mg/dL (0.2-1.3); BLOOD UREA NITROGEN 15 mg/dL (7-17); CALCIUM 8.2 mg/dl (8.6-10.4); CARBON DIOXIDE 32 mmol/L (22-30); CHLORIDE 99 mmol/L (98-107); GFR AFRICAN-AMERICAN > 60; GLUCOSE,RANDOM 97 mg/dL (65-105); POTASSIUM 4.3 mmol/L (3.6-5.2); SODIUM 136 mmol/L (132-148); TOTAL PROTEIN 6.5 g/dL (6.3-8.3)
[2017-04-03] MEDS: guaiFENesin 100 mg/5 ml Syrup UD PO PRN (09:53)
[2017-04-03] MEDS: Pantoprazole 40 mg EC Tab PO SCH (09:54)
[2017-04-03] MEDS: Saccharomyces Boulardi 250 mg Cap PO SCH ×2 (09:54→17:36)
[2017-04-03] MEDS: POLYETHYLENE GLYCOL 3350 17 GM/Dose PACKET PO SCH (09:54)
[2017-04-03] MEDS: Fluticasone Nasal 50 mcg/Spray NAS SCH (10:00)
[2017-04-03 11:14] VITALS: TEMP 98
--- NOTE | 2017-04-03 11:36 | CP.PCM.DIS ---
<Liam Bone - Last Filed: 04/03/17 11:33> Provider - Provider Date of Admission: 03/28/17 10:03 Attending physician: Aquiles Chavez MD Primary care physician: Dr. Schmitz Consults: Cardiology- Dr. Boogie ID- Dr. Ha Time Spent in preparation of Discharge (in minutes): 45 Diagnosis - Discharge Diagnosis (1) ESBL (extended spectrum beta-lactamase) producing bacteria infection Status: Acute Comment: Treated with 5 days of Primaxin. No further antibiotics as per ID. (2) Dyspnea Status: Acute Comment: PE ruled out. D dimer 369. Chest CTA: no PE. resolved. (3) Productive cough Status: Acute Comment: Likely secondary to pneumonia. BNP 196. CXR 03/28/17 - read as no active disease; costophrenic angles are blunted and cardiac sillhouette is prominent. D dimer 369. Chest CTA: no PE. Influenza, legionella- negative. Blood cx: negative. Discontinued Azithromycin 500mg IVPB daily, Rocephin 1gm IVPB daily. Robitussin 100mg PO Q4H PRN cough. Duonebs 3ml INH RQ6 (4) Chest pain Status: Acute Comment: Likely musculoskeletal v. PE v. ACS. EKG 03/28/17 - atrial paced ventricular rhythm at 83bpm. JANNA negative x 3. EKGs: atrial-sensed ventricular-paced rhythm. ECHO: LV systolic function is low normal; EF 55-60%; mild to moderate hypokinesis in anteroseptal wall; transmitral doppler flow pattern is grade-I abnormal relaxation pattern; MR is mild. TSH 4.39, T3 1/48 ( L), T4 1.31. Lipid panel: TG 96, Cholesterol 193, LDL 118, HDL 44. HgbA1C 6.3. D dimer 369. Chest CTA: no PE. Continue home ASA 81mg PO daily. Continue home simvastatin 20mg PO HS --> convert to formulary by pharmacy (5) ERICA (acute kidney injury) Status: Acute Comment: Resolved. Hospital Course - Lab Results Lab Results: Micro Results 04/01/17 Unknown Urine,Clean Catch Urine Culture - Final No Growth (<1,000 CFU/ML) 03/28/17 07:20 Blood Blood Culture - Final NO GROWTH AFTER 5 DAYS 03/28/17 07:20 Blood Gram Stain - Final TEST NOT PERFORMED 03/28/17 07:50 Blood Blood Culture - Final NO GROWTH AFTER 5 DAYS 03/28/17 07:50 Blood Gram Stain - Final TEST NOT PERFORMED 03/28/17 19:13 Urine,Clean Catch Urine Culture - Final Escherichia Coli Most Recent Lab Values WBC 5.4 K/uL (4.8-10.8) 04/03/17 06:21 RBC 3.66 Mil/uL (3.80-5.20) L 04/03/17 06:21 Hgb 11.5 g/dL (11.0-16.0) 04/03/17 06:21 Hct 33.7 % (34.0-47.0) L 04/03/17 06:21 MCV 92.2 fL (81.0-99.0) 04/03/17 06:21 MCH 31.5 pg (27.0-31.0) H 04/03/17 06:21 MCHC 34.1 g/dL (33.0-37.0) 04/03/17 06:21 RDW 13.7 % (11.5-14.5) 04/03/17 06:21 Plt Count 203 K/uL (130-400) 04/03/17 06:21 MPV 8.9 fL (7.2-11.7) 04/03/17 06:21 Neut % (Auto) 50.3 % (50.0-75.0) 04/03/17 06:21 Lymph % (Auto) 36.0 % (20.0-40.0) 04/03/17 06:21 Morrow % (Auto) 8.5 % (0.0-10.0) 04/03/17 06:21 Eos % (Auto) 4.5 % (0.0-4.0) H 04/03/17 06:21 Baso % (Auto) 0.7 % (0.0-2.0) 04/03/17 06:21 Neut # 2.7 K/uL (1.8-7.0) 04/03/17 06:21 Lymph # 1.9 K/uL (1.0-4.3) 04/03/17 06:21 Morrow # 0.5 K/uL (0.0-0.8) 04/03/17 06:21 Eos # 0.2 K/uL (0.0-0.7) 04/03/17 06:21 Baso # 0.0 K/uL (0.0-0.2) 04/03/17 06:21 D-Dimer, Quantitative 369 ng/mlDDU (0-243) H 03/28/17 11:39 Sodium 136 mmol/L (132-148) 04/03/17 06:21 Potassium 4.3 mmol/L (3.6-5.2) 04/03/17 06:21 Chloride 99 mmol/L (98-107) 04/03/17 06:21 Carbon Dioxide 32 mmol/L (22-30) H 04/03/17 06:21 Anion Gap 10 (10-20) 04/03/17 06:21 BUN 15 mg/dL (7-17) 04/03/17 06:21 Creatinine 0.8 mg/dL (0.7-1.2) 04/03/17 06:21 Est GFR ( Amer) > 60 04/03/17 06:21 Est GFR (Non-Af Amer) > 60 04/03/17 06:21 POC Glucose (mg/dL) 132 mg/dL (65-110) H 03/28/17 11:41 Random Glucose 97 mg/dL (65-105) 04/03/17 06:21 Hemoglobin A1c 6.3 % (4.2-6.5) 03/29/17 07:19 Calcium 8.2 mg/dl (8.6-10.4) L 04/03/17 06:21 Total Bilirubin 0.4 mg/dL (0.2-1.3) 04/03/17 06:21 AST 85 U/L (14-36) H D 04/03/17 06:21 ALT 83 U/L (9-52) H 04/03/17 06:21 Alkaline Phosphatase 63 U/L (38-126) 04/03/17 06:21 Total Creatine Kinase 112 U/L (30-135) 03/28/17 18:31 CK-MB (Mass) 0.49 ng/mL (0.0-3.38) 03/28/17 18:31 Troponin I < 0.0120 ng/mL (0.00-0.120) 03/28/17 18:31 NT-Pro-B Natriuret Pep 196 pg/mL (0-900) 03/28/17 09:05 Total Protein 6.5 g/dL (6.3-8.3) 04/03/17 06:21 Albumin 3.6 g/dL (3.5-5.0) 04/03/17 06:21 Globulin 2.8 gm/dL (2.2-3.9) 04/03/17 06:21 Albumin/Globulin Ratio 1.3 (1.0-2.1) 04/03/17 06:21 Triglycerides 96 mg/dL (0-149) D 03/29/17 07:19 Cholesterol 193 mg/dL (0-199) 03/29/17 07:19 LDL Cholesterol Direct 118 mg/dL (0-129) 03/29/17 07:19 HDL Cholesterol 44 mg/dL (30-70) 03/29/17 07:19 Free T4 1.31 ng/dL (0.78-2.19) 03/28/17 07:54 Total T3 1.48 nmol/L (1.49-2.60) L 03/28/17 07:54 TSH 3rd Generation 4.39 mIU/L (0.46-4.68) 03/28/17 07:54 Urine Color Straw (YELLOW) 03/31/17 21:49 Urine Clarity Clear (Clear) 03/31/17 21:49 Urine pH 6.0 (5.0-8.0) 03/31/17 21:49 Ur Specific [place] 1.008 (1.003-1.030) 03/31/17 21:49 Urine Protein Negative mg/dL (NEGATIVE) 03/31/17 21:49 Urine Glucose (UA) 1+ mg/dL (Normal) 03/31/17 21:49 Urine Ketones Negative mg/dL (NEGATIVE) 03/31/17 21:49 Urine Blood Negative (NEGATIVE) 03/31/17 21:49 Urine Nitrate Negative (NEGATIVE) 03/31/17 21:49 Urine Bilirubin Negative (NEGATIVE) 03/31/17 21:49 Urine Urobilinogen Normal mg/dL (0.2-1.0) 03/31/17 21:49 Ur Leukocyte Esterase Neg Andreea/uL (Negative) 03/31/17 21:49 Urine WBC (Auto) < 1 /hpf (0-5) 03/31/17 21:49 Ur Squamous Epith Cells 1 /hpf (0-5) 03/31/17 21:49 Influenza Typ A,B (EIA) Negative for flu a/b (NEGATIVE) 03/28/17 07:33 Ur L.pneumophila Ag Negative (NEGATIVE) 03/28/17 18:31 Mycoplasma pneumon IgG <=0.90 (<=0.90) 03/28/17 11:39 Mycoplasma pneumon IgM 16 U/mL (<770) 03/28/17 11:39 Ur Strep pneumoniae Ag Not detected 03/28/17 18:31 - Hospital Course Hospital Course: CC: "coughing x 3 days" HPI: This is an 81 year old Irish speaking female with PMHx of HTN, IGT, hyerlipidemia, hypothyroidism, cataracts, anxiety, arthritis, gastritis and "pacemaker for shortness of breath" presenting for 3 days of cough productive of white phlegm associated with fever, headache and chest pain radiating to her back. Patient reports shortness of breath with excursion. Patient says the chest pain hurts more when she presses on it and when she coughs. She says it hurts the most in her back. She tried Advil at home with no relief. She has not tried any other medications. Patient also reports feeling phlegm in her throat constantly.Patient has not had a bowel movement in 2 days which is not normal for her. She has had a decreased appetite for 2 days. She has only been drinking fluids, not eating food.Patient reports returning from [facility] one month ago (she was there for one month). Patient denies vision change, chills, sore throat, palpitations, abdominal pain, nausea, vomiting, diarrhea, dysuria, sick contacts. Patient says her pacemaker has 3 years of battery left. PMHx: as above PSHx: Pacemaker placed 17 years ago for "SOB" in [facility] and replaced 6 years ago, partial right knee replacement 6 years ago and left ankle surgery 16 years ago for ulcer; CABG is in her history on intake but she denies this and does not have a scar or sternotomy on CXR; cholecystectomy over 10 years ago FMHx: uncontributory. Social: Denied smoking, ETOH or drugs. Lives with son. Pt can ambulate without cane or walker at home. Allergies: NKDA PMD: Dr. Schmitz [facility] EP cardio: Dr. Calderon Hospital Course: Patient was admitted for chest pain and cough on 03/28/17. In the ED, labs, chest xray, and ekg were ordered. Chest xray showed no active disease, blunted costophrenic angles, and prominent cardiac silhouette. EKG showed atrial sensed ventricular-paced rhythm. ROMIs were negative times three, TSH was within normal limits, lipid panel was within normal limits, and hemoglobin A1c was 6.3. Blood cultures, strep pneumoniae, mycoplasma and legionella were ordered. Cardiology, Dr. Boogie, was consulted. Patient's home medications were continued for history of hypertension, hypothyroidism, and hyperlipidemia. Patient was started on antibiotics and nebulizer treatments. Patient's creatinine was found to be slightly elevated, likely secondary to dehydration. Patient was started on IV fluids and lasix were held. D-dimer was elevated, therefore CT angiogram was ordered- no PE on CTA. Echocardiogram was ordered and results will be reviewed as outpatient in [facility]. Patient was found to have ESBL positive urine, evaluated by ID, Dr. Ha, and treated for 5 days with Primaxin. Patient was seen and examined at bedside in no acute distress today. Patient reports her chest pain and dyspnea resolved. Patient has no complaints and feels well. Patient is stable for discharge to home. Patient must continue home medications as prescribed; however, must stop taking Lasix. Patient must follow up with PMD within 1-2 weeks of discharge. This is a brief summary of the hospital course. Please see EMR for more details. Discharge Exam - Head Exam Head Exam: ATRAUMATIC, NORMAL INSPECTION, NORMOCEPHALIC - Eye Exam Eye Exam: EOMI, Normal appearance Pupil Exam: NORMAL ACCOMODATION, PERRL - ENT Exam ENT Exam: Mucous Membranes Moist - Respiratory Exam Respiratory Exam: Clear to PA & Lateral, NORMAL BREATHING PATTERN, UNREMARKABLE. absent: Rales, Rhonchi, Wheezes - Cardiovascular Exam Cardiovascular Exam: REGULAR RHYTHM, +S1, +S2 - GI/Abdominal Exam GI & Abdominal Exam: Normal Bowel Sounds, Soft. absent: Distended, Firm, Tenderness - Extremities Exam Extremities exam: normal capillary refill, pedal pulses present - Neurological Exam Neurological exam: Alert, CN II-XII Intact, Oriented x3 - Psychiatric Exam Psychiatric exam: Normal Affect, Normal Mood - Skin Skin Exam: Dry, Intact, Normal Color, Warm Discharge Plan - Discharge Medications Prescriptions: Docusate [Colace] 100 mg PO DAILY #30 cap Fluticasone Propionate [Flonase] 1 spr KAYLI DAILY #1 bottle hydroCHLOROthiazide [Microzide] 12.5 cap PO DAILY #30 cap Levothyroxine [Synthroid] 125 mcg PO DAILY #30 tab Losartan [Cozaar] 100 mg PO DAILY #30 tab Promethazine [Phenergan Syrup] 6.25 mg PO Q6H PRN #120 ml PRN Reason: Cough Simvastatin 20 mg PO DAILY #30 tablet - Follow Up Plan Condition: GOOD Disposition: HOME/ ROUTINE Instructions: Hydrochlorothiazide (By mouth), Promethazine (By mouth), Levothyroxine (By mouth), Laxative, Stool Softeners (By mouth), Simvastatin (By mouth), Losartan (By mouth), Fluticasone (Into the nose), Chest Pain (DC), Constipation (DC), Diabetes Mellitus Type 2 in Adults (DC), Extended Spectrum Beta Lactamase (GEN), Hypertension (GEN) Additional Instructions: Patient is stable for discharge to home. Patient must continue home medications listed below: - Hydrochlorothiazide 12.5mg PO daily (7am)- take 1 tablet by mouth daily - Synthroid 125mcg PO daily (7am)- take 1 tablet by mouth daily - Losartan 100mg PO Daily (7pm)- take 1 tablet by mouth Once a day - Simvastatin 20mg PO daily- take 1 tablet by mouth daily - Floanse 50mcg spray, 2 spray each nostril, after blowing nose - Colace 100mg PO BID (7am and 7pm) -Promethazine DM (6.25mg/5ml) , 5ml PO Q6h prn for cough Patient is to take OTC probiotic 1x/day at lunch for 30 days. Patient must discontinue taking Lasix. Patient should take new medication, Colace 100mg PO BID, as prescribed for constipation: take 1 tablet by mouth twice a day for 5 days. Followup with your PMD in 7-10 days and if you don't have one, schedule appointment with [facility] located at [facility], [address] [place] [address] in [place], [place] by calling for an appointment. Through [facility], schedule followup with [facility] [facility]. Referrals: [facility] at [facility] [Outside] Ishan Boogie MD [Staff Provider] - <Aquiles Chavez - Last Filed: 04/03/17 20:10> Provider - Provider Date of Admission: 03/28/17 10:03 Attending physician: Aquiles Chavez MD Hospital Course - Lab Results Lab Results: Micro Results 04/01/17 Unknown Urine,Clean Catch Urine Culture - Final No Growth (<1,000 CFU/ML) 03/28/17 07:20 Blood Blood Culture - Final NO GROWTH AFTER 5 DAYS 03/28/17 07:20 Blood Gram Stain - Final TEST NOT PERFORMED 03/28/17 07:50 Blood Blood Culture - Final NO GROWTH AFTER 5 DAYS 03/28/17 07:50 Blood Gram Stain - Final TEST NOT PERFORMED 03/28/17 19:13 Urine,Clean Catch Urine Culture - Final Escherichia Coli Most Recent Lab Values WBC 5.4 K/uL (4.8-10.8) 04/03/17 06:21 RBC 3.66 Mil/uL (3.80-5.20) L 04/03/17 06:21 Hgb 11.5 g/dL (11.0-16.0) 04/03/17 06:21 Hct 33.7 % (34.0-47.0) L 04/03/17 06:21 MCV 92.2 fL (81.0-99.0) 04/03/17 06:21 MCH 31.5 pg (27.0-31.0) H 04/03/17 06:21 MCHC 34.1 g/dL (33.0-37.0) 04/03/17 06:21 RDW 13.7 % (11.5-14.5) 04/03/17 06:21 Plt Count 203 K/uL (130-400) 04/03/17 06:21 MPV 8.9 fL (7.2-11.7) 04/03/17 06:21 Neut % (Auto) 50.3 % (50.0-75.0) 04/03/17 06:21 Lymph % (Auto) 36.0 % (20.0-40.0) 04/03/17 06:21 Morrow % (Auto) 8.5 % (0.0-10.0) 04/03/17 06:21 Eos % (Auto) 4.5 % (0.0-4.0) H 04/03/17 06:21 Baso % (Auto) 0.7 % (0.0-2.0) 04/03/17 06:21 Neut # 2.7 K/uL (1.8-7.0) 04/03/17 06:21 Lymph # 1.9 K/uL (1.0-4.3) 04/03/17 06:21 Morrow # 0.5 K/uL (0.0-0.8) 04/03/17 06:21 Eos # 0.2 K/uL (0.0-0.7) 04/03/17 06:21 Baso # 0.0 K/uL (0.0-0.2) 04/03/17 06:21 D-Dimer, Quantitative 369 ng/mlDDU (0-243) H 03/28/17 11:39 Sodium 136 mmol/L (132-148) 04/03/17 06:21 Potassium 4.3 mmol/L (3.6-5.2) 04/03/17 06:21 Chloride 99 mmol/L (98-107) 04/03/17 06:21 Carbon Dioxide 32 mmol/L (22-30) H 04/03/17 06:21 Anion Gap 10 (10-20) 04/03/17 06:21 BUN 15 mg/dL (7-17) 04/03/17 06:21 Creatinine 0.8 mg/dL (0.7-1.2) 04/03/17 06:21 Est GFR ( Amer) > 60 04/03/17 06:21 Est GFR (Non-Af Amer) > 60 04/03/17 06:21 POC Glucose (mg/dL) 132 mg/dL (65-110) H 03/28/17 11:41 Random Glucose 97 mg/dL (65-105) 04/03/17 06:21 Hemoglobin A1c 6.3 % (4.2-6.5) 03/29/17 07:19 Calcium 8.2 mg/dl (8.6-10.4) L 04/03/17 06:21 Total Bilirubin 0.4 mg/dL (0.2-1.3) 04/03/17 06:21 AST 85 U/L (14-36) H D 04/03/17 06:21 ALT 83 U/L (9-52) H 04/03/17 06:21 Alkaline Phosphatase 63 U/L (38-126) 04/03/17 06:21 Total Creatine Kinase 112 U/L (30-135) 03/28/17 18:31 CK-MB (Mass) 0.49 ng/mL (0.0-3.38) 03/28/17 18:31 Troponin I < 0.0120 ng/mL (0.00-0.120) 03/28/17 18:31 NT-Pro-B Natriuret Pep 196 pg/mL (0-900) 03/28/17 09:05 Total Protein 6.5 g/dL (6.3-8.3) 04/03/17 06:21 Albumin 3.6 g/dL (3.5-5.0) 04/03/17 06:21 Globulin 2.8 gm/dL (2.2-3.9) 04/03/17 06:21 Albumin/Globulin Ratio 1.3 (1.0-2.1) 04/03/17 06:21 Triglycerides 96 mg/dL (0-149) D 03/29/17 07:19 Cholesterol 193 mg/dL (0-199) 03/29/17 07:19 LDL Cholesterol Direct 118 mg/dL (0-129) 03/29/17 07:19 HDL Cholesterol 44 mg/dL (30-70) 03/29/17 07:19 Free T4 1.31 ng/dL (0.78-2.19) 03/28/17 07:54 Total T3 1.48 nmol/L (1.49-2.60) L 03/28/17 07:54 TSH 3rd Generation 4.39 mIU/L (0.46-4.68) 03/28/17 07:54 Urine Color Straw (YELLOW) 03/31/17 21:49 Urine Clarity Clear (Clear) 03/31/17 21:49 Urine pH 6.0 (5.0-8.0) 03/31/17 21:49 Ur Specific [place] 1.008 (1.003-1.030) 03/31/17 21:49 Urine Protein Negative mg/dL (NEGATIVE) 03/31/17 21:49 Urine Glucose (UA) 1+ mg/dL (Normal) 03/31/17 21:49 Urine Ketones Negative mg/dL (NEGATIVE) 03/31/17 21:49 Urine Blood Negative (NEGATIVE) 03/31/17 21:49 Urine Nitrate Negative (NEGATIVE) 03/31/17 21:49 Urine Bilirubin Negative (NEGATIVE) 03/31/17 21:49 Urine Urobilinogen Normal mg/dL (0.2-1.0) 03/31/17 21:49 Ur Leukocyte Esterase Neg Andreea/uL (Negative) 03/31/17 21:49 Urine WBC (Auto) < 1 /hpf (0-5) 03/31/17 21:49 Ur Squamous Epith Cells 1 /hpf (0-5) 03/31/17 21:49 Influenza Typ A,B (EIA) Negative for flu a/b (NEGATIVE) 03/28/17 07:33 Ur L.pneumophila Ag Negative (NEGATIVE) 03/28/17 18:31 Mycoplasma pneumon IgG <=0.90 (<=0.90) 03/28/17 11:39 Mycoplasma pneumon IgM 16 U/mL (<770) 03/28/17 11:39 Ur Strep pneumoniae Ag Not detected 03/28/17 18:31 Attending/Attestation - Attestation I have personally seen and examined this patient.: Yes I have fully participated in the care of the patient.: Yes I have reviewed all pertinent clinical information, including history, physical exam and plan: Yes Notes (Text): 04/03/17 20:09 Patient was seen and examined at 9 AM 04/03/17 654 A Exam, assessment and plan, and discharge plan/prescriptions were thoroughly gone over with the resident. Aquiles Chavez D.O.
[2017-04-03 16:12] VITALS: BP 117/71; PULSE 84; O2SAT 97
== END 2017-04-03 18:30 | disposition home or self-care (01) | DRG 586 ==
LOC: C.ER 06:57 → C.9E 08:55 → C.6T 09:55 → OBSVTOIN 10:03 → C.6T 10:04
PROVIDERS: ADMIT Hospitalist; ATTEND Family Medicine
DX: J06.9 Acute upper respiratory infection, unspecified (principal); N17.9 Acute kidney failure, unspecified; N39.0 Urinary tract infection, site not specified; E86.0 Dehydration; R07.89 Other chest pain; E11.9 Type 2 diabetes mellitus without complications; E03.9 Hypothyroidism, unspecified; E78.5 Hyperlipidemia, unspecified; B96.20 Unspecified Escherichia coli [E. coli] as the cause of diseases classified elsewhere; R79.1 Abnormal coagulation profile; I11.9 Hypertensive heart disease without heart failure; K29.70 Gastritis, unspecified, without bleeding; K59.00 Constipation, unspecified; Z96.651 Presence of right artificial knee joint; Z79.82 Long term (current) use of aspirin; Z79.899 Other long term (current) drug therapy; Z90.49 Acquired absence of other specified parts of digestive tract; Z90.710 Acquired absence of both cervix and uterus; Z95.0 Presence of cardiac pacemaker; Z16.12 Extended spectrum beta lactamase (ESBL) resistance

== ENCOUNTER 2017-04-25 10:02 | Inpatient (IN) | payer MEDICAID ==
[2017-04-25 10:14] VITALS: BMI 33.6
[2017-04-25 10:20] VITALS: RESP 20
[2017-04-25 10:51] LABS: BASO # 0.1 K/uL (0.0-0.2); BASO % 0.9 % (0.0-2.0); EOS # 0.3 K/uL (0.0-0.7); EOS % 4.1 % (0.0-4.0); HEMOGLOBIN 11.8 g/dL (11.0-16.0); LYMPH # 1.9 K/uL (1.0-4.3); LYMPH % 27.8 % (20.0-40.0); MEAN CELL VOLUME 92.3 fL (81.0-99.0); MEAN CORPUSCULAR HEMOGLOBIN 31.5 pg (27.0-31.0); MEAN CORPUSCULAR HGB CONC 34.2 g/dL (33.0-37.0); MEAN PLATELET VOLUME 9.2 fL (7.2-11.7); MONO # 0.6 K/uL (0.0-0.8); MONO % 8.3 % (0.0-10.0); NEUT % 58.9 % (50.0-75.0); RBC 3.73 Mil/uL (3.80-5.20); RED CELL DISTRIBUTION WIDTH 13.7 % (11.5-14.5); WHITE BLOOD COUNT 6.8 K/uL (4.8-10.8)
[2017-04-25] MEDS ORDERED: Aspirin 325 mg EC Tablets PO STA (10:54)
[2017-04-25 11:00] LABS: ALBUMIN 4.1 g/dL (3.5-5.0); ALT/SGPT 30 U/L (9-52); AST/SGOT 23 U/L (14-36); BLOOD UREA NITROGEN 19 mg/dL (7-17); CALCIUM 8.6 mg/dl (8.6-10.4); GFR AFRICAN-AMERICAN > 60; GFR NON-AFRICAN AMERICAN > 60
[2017-04-25 11:11] LABS: B-TYPE NATRIURETIC PEPTIDE 488 pg/mL (0-900)
--- NOTE | 2017-04-25 11:12 | C.PDOC ---
History Of Present Illness 81 yr old female presents to the ER for evaluation of chest pain and SOB for the past 2 days. Patient states the pain radiates to the left shoulder and upper back. Denies fever, chills, nausea, vomiting, neck pain, weakness or numbness. Time Seen by Provider: 04/25/17 10:22 Chief Complaint (Nursing): Chest Pain History Per: Patient History/Exam Limitations: no limitations Onset/Duration Of Symptoms: Days (2) Past Medical History Reviewed: Historical Data, Nursing Documentation, Vital Signs Vital Signs: Last Vital Signs Temp 98 F 04/25/17 12:42 Pulse 64 04/25/17 12:42 Resp 20 04/25/17 12:42 BP 167/84 H 04/25/17 12:53 Pulse Ox 99 04/25/17 12:42 - Medical History PMH: Anxiety, Arthritis, Gastritis, Gall Bladder Disease, HTN, Hypothyroidism Surgical History: CABG, Cholecystectomy, Pacemaker (2009) - [facility] Procedures EXCIS DEBRIDE OF WOUND, INFECT, OR BURN (07/12/13) IMMOBILIZ/WOUND ATTN NEC (07/12/13) Family History: States: No Known Family Hx - Social History Hx Tobacco Use: No Hx Alcohol Use: Yes Hx Substance Use: No - Immunization History Hx Tetanus Toxoid Vaccination: No Hx Influenza Vaccination: No Hx Pneumococcal Vaccination: No Review Of Systems Except As Marked, All Systems Reviewed And Found Negative. Constitutional: Negative for: Fever, Chills Cardiovascular: Positive for: Chest Pain Respiratory: Positive for: Shortness of Breath Gastrointestinal: Negative for: Nausea, Vomiting Musculoskeletal: Positive for: Shoulder Pain (radiating pain to left shoulder), Back Pain (upper back). Negative for: Neck Pain Neurological: Negative for: Weakness, Numbness Physical Exam - Physical Exam Appears: Non-toxic, No Acute Distress Skin: Warm, Dry, No Rash Head: Atraumatic, Normacephalic Eye(s): bilateral: Normal Inspection, PERRL, EOMI Oral Mucosa: Moist Chest: Symmetrical, No Tenderness Cardiovascular: Rhythm Regular, No Murmur Respiratory: Normal Breath Sounds, No Rales, No Rhonchi, No Stridor, No Wheezing Gastrointestinal/Abdominal: Normal Exam, Soft, No Tenderness, No Guarding, No Rebound Back: Normal Inspection, No CVA Tenderness Extremity: Normal ROM, Capillary Refill (<2 secs), No Swelling Neurological/Psych: Oriented x3, Normal Speech, Normal Motor ED Course And Treatment - Laboratory Results Result Diagrams: 04/25/17 10:41 04/25/17 10:41 ECG: Interpreted By Me, Viewed By Me ECG Rhythm: AV Paced Rate From EC (BPM) O2 Sat by Pulse Oximetry: 100 (RA) Pulse Ox Interpretation: Normal - Radiology CXR: Viewed By Me, Read By Radiologist CXR Interpretation: Yes: No Acute Disease Progress Note: 1130: Patient is admitted to hospitalist tele-obs for chest pain. Medical Decision Making Medical Decision Making: PLAN: * CXR * EKG * CBC * CMP * BNP * Aspirin PO Disposition Discussed With Dr.: Otto Chandler Doctor Will See Patient In The: Hospital Counseled Patient/Family Regarding: Diagnosis - Disposition Disposition: HOSPITALIZED Disposition Time: 11:30 Condition: FAIR - Clinical Impression Clinical Impression: Chest pain - Scribe Statement The provider has reviewed the documentation as recorded by the Blu Oliveira Provider Attestation: All medical record entries made by the Blu were at my direction and personally dictated by me. I have reviewed the chart and agree that the record accurately reflects my personal performance of the history, physical exam, medical decision making, and the department course for this patient. I have also personally directed, reviewed, and agree with the discharge instructions and disposition.
[2017-04-25] MEDS ORDERED: Aspirin 325 mg EC Tablets PO ONE (11:18)
[2017-04-25] MEDS ORDERED: Labetalol 5 mg/ml Inj 20ML IV STA (12:51)
--- NOTE | 2017-04-25 13:22 | RAD ---
HISTORY: chest pain COMPARISON: Comparison is made with the previous study dated 04/21/2017 FINDINGS: LUNGS: No evidence of new infiltrate or consolidation in the lungs PLEURA: No significant pleural effusion identified, no pneumothorax apparent. CARDIOVASCULAR: Mild cardiomegaly is again noted. Right-sided pacemaker is again seen in place. OSSEOUS STRUCTURES: No significant abnormalities. VISUALIZED UPPER ABDOMEN: Normal. OTHER FINDINGS: None. IMPRESSION: No active disease.
--- NOTE | 2017-04-25 14:08 | CP.PCM.HP ---
<Berkley Stapleton - Last Filed: 04/25/17 17:27> History of Present Illness - History of Present Illness History of Present Illness: CC: chest pain Patient is a 81 yo female with PMH HTN, hyperlipidemia, diet- controlled DMII, hypothyroidism, arthritis, anxiety presenting with complaint of chest pain. She states this pain began while she was lying down last night resting. The pain is described as a pressure like sensation in the left sternal border with radiation to her back. She was recently hospitalized on 03/2017 for similar chest pain. During that admission, AURE was negative x3 and patient was found to have ESBL positive urine and so was treated with 5 days of Primaxin. According to the patient, she had seen her PMD for follow-up 4 days ago and was told she had high blood pressure with systolic in the 180s. Ever since then, she has been experiencing a headache along with very labile blood pressures ranging from systolic of 150s to 180s. She states that normally her blood pressure is around 130/70. She denies diaphoresis, shortness of breath, fever, chills, nausea, vomiting. The patient states that currently her chest is improved, with severity of pain +3/10 in comparison to +8/10 the night prior. Patient also complains of left arm weakness and numbness which began approximately 1 month ago. 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 She went to the [facility] for this and had cervical and thoracic spine x-rays done on April 21 which showed no fractures or soft tissue swellings. Of note, she had her pacemaker checked just 2 months ago in [facility]. PMD: Dr. Schmitz [employer]: Dr. Bustillos Allergies: Morphine Medications: Aspirin 81 mg PO QD, HCTZ 12.5 mg QD, Losartan potassium 100 mg, Levothyroxine 125 mg, Simvastatin 20 mg Surgical history: Pacemaker placed in 2002 in [facility] and replaced in 2009 at [facility], partial right knee placement 6 years ago, left ankle surgery 16 years ago for ulcer, cholecystectomy over 10 years ago Family history: Denies Social history: Denies tobacco or recreational drug use. Rare alcohol. Present on Admission - Present on Admission Any Indicators Present on Admission: No History of DVT/PE: No History of Uncontrolled Diabetes: No Urinary Catheter: No Decubitus Ulcer Present: No Review of Systems - Constitutional Constitutional: Weakness. absent: Headache - EENT Eyes: absent: Change in Vision Nose/Mouth/Throat: absent: Nasal Congestion, Sore Throat - Cardiovascular Cardiovascular: Chest Pain, Dyspnea on Exertion. absent: Dyspnea, Irregular Heart Rhythm, Leg Edema, Palpitations - Respiratory Respiratory: absent: Cough, Wheezing, Chest Congestion - Gastrointestinal Gastrointestinal: absent: Abdominal Pain, Constipation, Diarrhea, Nausea, Vomiting - Genitourinary Genitourinary: absent: Change in Urinary Stream, Difficulty Urinating, Dysuria, Hematuria - Musculoskeletal Musculoskeletal: Muscle Weakness, Numbness, Tingling Additional comments: R arm muscle weakness, numbness, tingling - Integumentary Integumentary: absent: Rash - Neurological Neurological: Numbness, Tingling - Hematologic/Lymphatic Hematologic: absent: Easy Bleeding, Easy Bruising Past Patient History - Infectious Disease Hx of Infectious Diseases: None - Past Medical History & Family History Past Medical History?: Yes - Past Social History Smoking Status: Never Smoked - CARDIAC Hx Hypertension: Yes Hx Pacemaker: Yes (2009) - PULMONARY Hx Respiratory Disorders: No - NEUROLOGICAL Hx Neurological Disorder: No - HEENT Hx HEENT Problems: Yes Hx Cataracts: Yes (BILATERAL CATARACT SURGERY) - RENAL Hx Chronic Kidney Disease: No - ENDOCRINE/METABOLIC Hx Hypothyroidism: Yes - HEMATOLOGICAL/ONCOLOGICAL Hx Blood Disorders: No - INTEGUMENTARY Hx Dermatological Problems: No - MUSCULOSKELETAL/RHEUMATOLOGICAL Hx Arthritis: Yes - GASTROINTESTINAL Hx Gall Bladder Disease: Yes Hx Gastritis: Yes - GENITOURINARY/GYNECOLOGICAL Hx Genitourinary Disorders: No - PSYCHIATRIC Hx Anxiety: Yes Hx Substance Use: No - SURGICAL HISTORY Hx Cholecystectomy: Yes Hx Coronary Artery Bypass Graft: Yes - ANESTHESIA Hx Anesthesia: Yes Hx Anesthesia Reactions: No Hx Malignant Hyperthermia: No Meds Allergies/Adverse Reactions: Allergies Allergy/AdvReac Type Severity Reaction Status Date / Time morphine AdvReac Intermediate RASH Verified 04/25/17 10:14 Physical Exam - Constitutional Appears: Non-toxic, No Acute Distress - Head Exam Head Exam: NORMAL INSPECTION, NORMOCEPHALIC - Eye Exam Eye Exam: EOMI, Normal appearance - ENT Exam ENT Exam: Mucous Membranes Moist - Respiratory Exam Respiratory Exam: Clear to Auscultation Bilateral, NORMAL BREATHING PATTERN. absent: Rales, Rhonchi, Wheezes, Respiratory Distress, Stridor - Cardiovascular Exam Cardiovascular Exam: REGULAR RHYTHM, RRR, +S1, +S2 Additional comments: right side chest pacemaker - GI/Abdominal Exam GI & Abdominal Exam: Normal Bowel Sounds, Soft. absent: Tenderness - Extremities Exam Extremities exam: Positive for: normal inspection. Negative for: pedal edema, tenderness - Back Exam Back exam: NORMAL INSPECTION, tenderness Additional comments: upper back tenderness - Neurological Exam Neurological exam: Alert, Oriented x3 - Psychiatric Exam Psychiatric exam: Normal Affect, Normal Mood - Skin Skin Exam: Intact, Normal Color, Warm Results - Vital Signs Recent Vital Signs: Last Vital Signs Temp 98 F 04/25/17 12:42 Pulse 64 04/25/17 12:42 Resp 20 04/25/17 12:42 BP 167/84 H 04/25/17 12:53 Pulse Ox 100 04/25/17 13:31 - Labs Result Diagrams: 04/25/17 10:41 04/25/17 10:41 Labs: Laboratory Results - last 24 hr 04/25/17 04/25/17 10:41 10:41 WBC 6.8 RBC 3.73 L Hgb 11.8 Hct 34.5 MCV 92.3 MCH 31.5 H MCHC 34.2 RDW 13.7 Plt Count 209 MPV 9.2 Neut % (Auto) 58.9 Lymph % (Auto) 27.8 [place] % (Auto) 8.3 Eos % (Auto) 4.1 H Baso % (Auto) 0.9 Neut # 4.0 Lymph # 1.9 [place] # 0.6 Eos # 0.3 Baso # 0.1 Sodium 135 Potassium 4.0 Chloride 97 L Carbon Dioxide 30 Anion Gap 12 BUN 19 H Creatinine 0.7 Est GFR ( Amer) > 60 Est GFR (Non-Af Amer) > 60 Random Glucose 93 Calcium 8.6 Total Bilirubin 0.6 AST 23 ALT 30 Alkaline Phosphatase 67 Troponin I < 0.0120 NT-Pro-B Natriuret Pep 488 Total Protein 8.0 Albumin 4.1 Globulin 4.0 H Albumin/Globulin Ratio 1.0 Assessment & Plan - Assessment and Plan (Free Text) Assessment: Chest Pain r/o ACS tele obs 1st Aure: negative EKG: ventricular-paced rhythm f/u 2x AURE and EKG continue ASA 81mg daily Cardiology consulted, Dr. Boogie, help appreciated Left Arm weakness/ numbness CT head without contrast Cervical spine CT without contrast Thoracic and Cervical Spine xrays 04/21/17: normal radiographs Neuro consulted, Dr. Gray, help appreciated Hx HTN uncontrolled continue HCTZ 12.5 mg daily continue Losartan 100mg daily monitor Hyperlipidemia Simvastatin 20mg NF Crestor 5mg po HS Hypothyroidism Continue Levothyroxine 125mcg daily Prophylaxis Pepcid 20mg po BID SCDs, Heparin 5000 u sc q8h heart healthy diet <Otto Chandler - Last Filed: 04/25/17 19:15> Results - Vital Signs Recent Vital Signs: Last Vital Signs Temp 97.8 F 04/25/17 15:35 Pulse 63 04/25/17 15:35 Resp 20 04/25/17 15:35 BP 125/70 04/25/17 15:35 Pulse Ox 97 04/25/17 15:35 - Labs Result Diagrams: 04/25/17 10:41 04/25/17 10:41 Labs: Laboratory Results - last 24 hr 04/25/17 04/25/17 04/25/17 10:41 10:41 17:57 WBC 6.8 RBC 3.73 L Hgb 11.8 Hct 34.5 MCV 92.3 MCH 31.5 H MCHC 34.2 RDW 13.7 Plt Count 209 MPV 9.2 Neut % (Auto) 58.9 Lymph % (Auto) 27.8 [place] % (Auto) 8.3 Eos % (Auto) 4.1 H Baso % (Auto) 0.9 Neut # 4.0 Lymph # 1.9 [place] # 0.6 Eos # 0.3 Baso # 0.1 Sodium 135 Potassium 4.0 Chloride 97 L Carbon Dioxide 30 Anion Gap 12 BUN 19 H Creatinine 0.7 Est GFR ( Amer) > 60 Est GFR (Non-Af Amer) > 60 Random Glucose 93 Calcium 8.6 Total Bilirubin 0.6 AST 23 ALT 30 Alkaline Phosphatase 67 Total Creatine Kinase 45 CK-MB (Mass) 0.49 Troponin I < 0.0120 < 0.0120 NT-Pro-B Natriuret Pep 488 Total Protein 8.0 Albumin 4.1 Globulin 4.0 H Albumin/Globulin Ratio 1.0 Attending/Attestation - Attestation I have personally seen and examined this patient.: Yes I have fully participated in the care of the patient.: Yes I have reviewed all pertinent clinical information: Yes Notes (Text): Patient was seen and examined Discussed with her family at bedside I agree with the resident's documentation of the assessment and the plan
--- NOTE | 2017-04-25 15:15 | CT ---
PROCEDURE: CT HEAD WITHOUT CONTRAST. HISTORY: right arm weakness and decreased sensation COMPARISON: Comparison is made with 09/24/2016 TECHNIQUE: Axial computed tomography images were obtained through the head/brain without intravenous contrast. Radiation dose: Total exam DLP = 990.12 mGy-cm. This CT exam was performed using one or more of the following dose reduction techniques: Automated exposure control, adjustment of the mA and/or kV according to patient size, and/or use of iterative reconstruction technique. FINDINGS: HEMORRHAGE: No intracranial hemorrhage. BRAIN: Mild atrophy and mild chronic microvascular white matter ischemic disease is again noted. No atrophy or chronic microvascular ischemic changes. VENTRICLES: Unremarkable. No hydrocephalus. CALVARIUM: Unremarkable. PARANASAL SINUSES: Small air-fluid level noted in the right maxillary sinus. MASTOID AIR CELLS: Unremarkable as visualized. No inflammatory changes. OTHER FINDINGS: None. IMPRESSION: No evidence of acute intracranial hemorrhage territorial infarct mass effect or midline shift.
--- NOTE | 2017-04-25 15:29 | CT ---
PROCEDURE: CT Cervical Spine without contrast HISTORY: <right arm weakness and decreased sensation> COMPARISON: None available. TECHNIQUE: Axial computed tomography images were obtained of the cervical spine without the use of intravenous contrast. Coronal and sagittal reformatted images were created and reviewed. Radiation dose: Total exam DLP = 571.51 mGy-cm. This CT exam was performed using one or more of the following dose reduction techniques: Automated exposure control, adjustment of the mA and/or kV according to patient size, and/or use of iterative reconstruction technique. FINDINGS: VERTEBRAE: No fracture. Normal alignment. No destructive bony lesion. There is a straightening of the cervical spine which could be due to muscle spasm. DISCS/SPINAL CANAL/NEURAL FORAMINA: No [id number] degenerative disc and endplate changes. There are multilevel small osteophyte disc bulge complex more prominent at C6-C7 associated with mild spinal and neural foraminal narrowing. Multilevel narrowing of the disc is space more prominent at C6-C7 P PARASPINAL SOFT TISSUES: Unremarkable. OTHER FINDINGS: None. IMPRESSION: Straightening of the cervical spine which could be due to muscle spasm. No evidence of acute fracture or subluxation. Multilevel [id number] degenerative changes associated with small posterior osteophyte and disc bulge complex more prominent at C6-C7.
[2017-04-25 18:29] LABS: CK-MB 0.49 ng/mL (0.0-3.38)
--- NOTE | 2017-04-25 19:01 | CP.PCM.CON ---
History of Present Illness - History of Present Illness History of Present Illness: The patient is an 81-year-old woman with a past medical history of HTN, hyperlipidemia, diet-controlled DMII, hypothyroidism, arthritis, anxiety, pacemaker, who presented with chest pain and neck pain. She states that for the last month, she feels that her right arm has gotten weakness and feels more numb as compared with the left side. CT of the head did not show infarcts, but CT of the neck was consistent with disc bulging most prominent at C6-C7. Review of Systems - Review of Systems All systems: reviewed and no additional remarkable complaints except Past Patient History - Infectious Disease Hx of Infectious Diseases: None - Past Medical History & Family History Past Medical History?: Yes - Past Social History Smoking Status: Never Smoked - CARDIAC Hx Hypertension: Yes Hx Pacemaker: Yes (2009) - PULMONARY Hx Respiratory Disorders: No - NEUROLOGICAL Hx Neurological Disorder: No - HEENT Hx HEENT Problems: Yes Hx Cataracts: Yes (BILATERAL CATARACT SURGERY) - RENAL Hx Chronic Kidney Disease: No - ENDOCRINE/METABOLIC Hx Hypothyroidism: Yes - HEMATOLOGICAL/ONCOLOGICAL Hx Blood Disorders: No - INTEGUMENTARY Hx Dermatological Problems: No - MUSCULOSKELETAL/RHEUMATOLOGICAL Hx Arthritis: Yes - GASTROINTESTINAL Hx Gall Bladder Disease: Yes Hx Gastritis: Yes - GENITOURINARY/GYNECOLOGICAL Hx Genitourinary Disorders: No - PSYCHIATRIC Hx Anxiety: Yes Hx Substance Use: No - SURGICAL HISTORY Hx Cholecystectomy: Yes Hx Coronary Artery Bypass Graft: Yes - ANESTHESIA Hx Anesthesia: Yes Hx Anesthesia Reactions: No Hx Malignant Hyperthermia: No Meds Allergies/Adverse Reactions: Allergies Allergy/AdvReac Type Severity Reaction Status Date / Time morphine AdvReac Intermediate RASH Verified 04/25/17 10:14 - Medications Medications: Current Medications Aspirin (Aspirin Chewable) 81 mg PO DAILY [facility] Famotidine (Pepcid) 20 mg PO BID [facility] Heparin Sodium (Porcine) (Heparin) 5,000 units SC Q8 [facility] Hydrochlorothiazide (Microzide) 12.5 mg PO DAILY [facility] Levothyroxine Sodium (Synthroid) 125 mcg PO DAILY [facility] Losartan Potassium (Cozaar) 100 mg PO DAILY [facility] Rosuvastatin Calcium (Crestor) 5 mg PO HS [facility] Physical Exam - Constitutional Appears: Well - Head Exam Head Exam: ATRAUMATIC, NORMAL INSPECTION, NORMOCEPHALIC - Eye Exam Eye Exam: EOMI, Normal appearance, PERRL - Neck Exam Neck exam: Positive for: Normal Inspection - Respiratory Exam Respiratory Exam: Clear to Auscultation Bilateral, NORMAL BREATHING PATTERN - Cardiovascular Exam Cardiovascular Exam: REGULAR RHYTHM, +S1, +S2 - GI/Abdominal Exam GI & Abdominal Exam: Normal Bowel Sounds, Soft. absent: Tenderness - Rectal Exam Rectal Exam: Deferred - Neurological Exam Neurological exam: Alert, CN II-XII Intact, Normal Gait, Oriented x3, Reflexes Normal - Expanded Neurological Exam Expanded Patient oriented to: person, place, time Cranial nerves: EOM's Intact: Normal, Facial Palsey w/Forehead Movement: Normal , Facial Sensation: Normal Cerebellar Function: Finger to Nose: Normal, Heel to [place]: Normal Sensory exam: Lower Extremity Light Touch: Normal, Lower Extremity Pin Prick: Normal, Upper Extremity 2 Point Discrimination: Abnormal Right, Upper Extremity Light Touch: Abnormal Right Neuro motor strength exam: Left Upper Extremity: 5, Right Upper Extremity: 4, Left Lower Extremity: 5, Right Lower Extremity: 5 DTR: Bicep Left: 2+, Bicep Right: 3+, Brachioradialis Left: 2+, Brachioradialis Right: 3+, Patellar Left: 2+, Patellar Right: 2+, Tricep Left: 2+, Tricep Right : 3+ Results - Vital Signs Recent Vital Signs: Last Vital Signs Temp 97.8 F 04/25/17 15:35 Pulse 63 04/25/17 15:35 Resp 20 04/25/17 15:35 BP 125/70 04/25/17 15:35 Pulse Ox 97 04/25/17 15:35 - Labs Result Diagrams: 04/25/17 10:41 04/25/17 10:41 Labs: Laboratory Results - last 24 hr 04/25/17 04/25/17 04/25/17 10:41 10:41 17:57 WBC 6.8 RBC 3.73 L Hgb 11.8 Hct 34.5 MCV 92.3 MCH 31.5 H MCHC 34.2 RDW 13.7 Plt Count 209 MPV 9.2 Neut % (Auto) 58.9 Lymph % (Auto) 27.8 [place] % (Auto) 8.3 Eos % (Auto) 4.1 H Baso % (Auto) 0.9 Neut # 4.0 Lymph # 1.9 [place] # 0.6 Eos # 0.3 Baso # 0.1 Sodium 135 Potassium 4.0 Chloride 97 L Carbon Dioxide 30 Anion Gap 12 BUN 19 H Creatinine 0.7 Est GFR ( Amer) > 60 Est GFR (Non-Af Amer) > 60 Random Glucose 93 Calcium 8.6 Total Bilirubin 0.6 AST 23 ALT 30 Alkaline Phosphatase 67 Total Creatine Kinase 45 CK-MB (Mass) 0.49 Troponin I < 0.0120 < 0.0120 NT-Pro-B Natriuret Pep 488 Total Protein 8.0 Albumin 4.1 Globulin 4.0 H Albumin/Globulin Ratio 1.0 Assessment & Plan (1) Cervical radiculopathy Assessment and Plan: If the patient can obtain an MRI of the cervical spine, it would be helpful to determine the degree of stenosis and herniation. Furthermore, I recommend: 1. Treat pain with local icing, NSAIDs, cervical pillow at night. 2. PT/OT eval to consider a traction collar. 3. Consult neurosurgery for possible treatment and follow-up. Thank you. Status: Acute Priority: High
[2017-04-25 23:27] LABS: CK-MB 0.43 ng/mL (0.0-3.38)
[2017-04-26] MEDS: Levothyroxine 125 MCG TAB PO SCH (05:55)
[2017-04-26 10:40] LABS: BASO # 0.1 K/uL (0.0-0.2); EOS # 0.3 K/uL (0.0-0.7); EOS % 4.5 % (0.0-4.0); HEMOGLOBIN 11.8 g/dL (11.0-16.0); LYMPH # 1.8 K/uL (1.0-4.3); LYMPH % 31.4 % (20.0-40.0); MEAN CELL VOLUME 92.9 fL (81.0-99.0); MEAN CORPUSCULAR HEMOGLOBIN 30.4 pg (27.0-31.0); MEAN CORPUSCULAR HGB CONC 32.7 g/dL (33.0-37.0); MONO # 0.6 K/uL (0.0-0.8); MONO % 10.6 % (0.0-10.0); NEUT % 52.5 % (50.0-75.0); NRBC % 0.1 % (0.0-2.0); RBC 3.88 Mil/uL (3.80-5.20); RED CELL DISTRIBUTION WIDTH 13.8 % (11.5-14.5); WHITE BLOOD COUNT 5.8 K/uL (4.8-10.8)
[2017-04-26 11:52] LABS: ALBUMIN 3.8 g/dL (3.5-5.0); ALT/SGPT 27 U/L (9-52); AST/SGOT 22 U/L (14-36); BLOOD UREA NITROGEN 23 mg/dL (7-17); CALCIUM 8.4 mg/dl (8.6-10.4); GFR AFRICAN-AMERICAN > 60; GFR NON-AFRICAN AMERICAN 53; MAGNESIUM 1.6 mg/dL (1.6-2.3)
--- NOTE | 2017-04-26 15:40 | CP.PCM.PN ---
Subjective - Date & Time of Evaluation Date of Evaluation: 04/26/17 Time of Evaluation: 07:00 - Subjective Subjective: PGY1-Medicine Note- Dr. Soliman's Service Patient seen and examined at bedside and in no acute distress. Patient says her chest pain has greatly improved and is very mild today. Patient says she is still having right arm pain and decrease in strength and sensation. Patient denies headache, shortness of breath, abdominal pain, nausea, vomiting, constipation, or diarrhea. Objective - Vital Signs/Intake and Output Vital Signs (last 24 hours): Temp Pulse Resp BP Pulse Ox 97.7 F 72 20 115/67 98 04/26/17 08:10 04/26/17 08:10 04/26/17 08:10 04/26/17 08:10 04/26/17 12:39 Intake and Output: 04/26/17 04/26/17 06:59 18:59 Intake Total 470 Balance 470 - Medications Medications: Current Medications Acetaminophen (Tylenol 325mg Tab) 650 mg PO Q6 PRN PRN Reason: pain, headache, fever Last Admin: 04/26/17 02:47 Dose: 650 mg Aspirin (Aspirin Chewable) 81 mg PO DAILY [facility] Last Admin: 04/26/17 10:04 Dose: 81 mg Famotidine (Pepcid) 20 mg PO BID [facility] Last Admin: 04/26/17 10:04 Dose: 20 mg Heparin Sodium (Porcine) (Heparin) 5,000 units SC Q8 [facility] Last Admin: 04/26/17 14:01 Dose: 5,000 units Hydrochlorothiazide (Microzide) 12.5 mg PO DAILY [facility] Last Admin: 04/26/17 10:04 Dose: 12.5 mg Ibuprofen (Motrin Tab) 600 mg PO Q6H PRN PRN Reason: Pain, moderate (4-7) Levothyroxine Sodium (Synthroid) 125 mcg PO DAILY@0630 [facility] Last Admin: 04/26/17 05:55 Dose: 125 mcg Losartan Potassium (Cozaar) 100 mg PO DAILY [facility] Last Admin: 04/26/17 10:04 Dose: 100 mg Rosuvastatin Calcium (Crestor) 5 mg PO HS [facility] Last Admin: 04/25/17 22:14 Dose: 5 mg - Labs Labs: 04/26/17 10:37 04/26/17 10:37 - Constitutional Appears: Non-toxic, No Acute Distress - Head Exam Head Exam: ATRAUMATIC, NORMAL INSPECTION, NORMOCEPHALIC - Eye Exam Eye Exam: EOMI, Normal appearance - ENT Exam ENT Exam: Mucous Membranes Moist - Respiratory Exam Respiratory Exam: Clear to Ausculation Bilateral, NORMAL BREATHING PATTERN. absent: Rales, Rhonchi, Wheezes, Respiratory Distress, Stridor - Cardiovascular Exam Cardiovascular Exam: REGULAR RHYTHM, RRR, +S1, +S2 - GI/Abdominal Exam GI & Abdominal Exam: Soft, Normal Bowel Sounds. absent: Tenderness - Extremities Exam Extremities Exam: Full ROM, Normal Inspection. absent: Pedal Edema - Neurological Exam Neurological Exam: Alert, Awake, Oriented x3 Neuro motor strength exam: Left Upper Extremity: 5, Right Upper Extremity: 4, Left Lower Extremity: 5, Right Lower Extremity: 5 - Psychiatric Exam Psychiatric exam: Normal Affect, Normal Mood - Skin Skin Exam: Intact, Normal Color, Warm Assessment and Plan - Assessment and Plan (Free Text) Assessment: Chest Pain r/o ACS tele obs JANNA negative x3 EKG: ventricular-paced rhythm continue ASA 81mg daily Cardiology consulted, Dr. Boogie, help appreciated Left Arm weakness/ numbness CT head without contrast (04/25/17): no acute intracranial hemorrhage, mass effect , or midline shift Cervical spine CT without contrast (04/25/17): small posterior osteophyte and disc bulge at C6-C7 Thoracic and Cervical Spine xrays 04/21/17: normal radiographs Oxycodone 5mg po q6h prn for pain Neuro consulted, Dr. Gray, help appreciated * MRI recommended, cannot be completed due to patient's pacemaker Hx HTN uncontrolled continue HCTZ 12.5 mg daily continue Losartan 100mg daily monitor Hyperlipidemia Simvastatin 20mg NF Crestor 5mg po HS Hypothyroidism Continue Levothyroxine 125mcg daily Prophylaxis Pepcid 20mg po BID SCDs, Heparin 5000 u sc q8h heart healthy diet
--- NOTE | 2017-04-26 16:30 | CP.PCM.PN ---
Subjective - Date & Time of Evaluation Date of Evaluation: 04/26/17 Time of Evaluation: 16:27 - Subjective Subjective: Ms. Fuller was seen and examined at the bedside. She is alert, oriented. She complains of headache with pain scale of 6/10, characterized as sharp, located in her frontal area. She denies any blurred vision, dizziness, lightheadedness, nausea, or vomiting. She is able to answer questions appropriately and follows simple commands. The CT of the spine showed straightening of the cervical spine which could be due to muscle spasm. Multilevel mild to moderate degenerative changes associated with small posterior osteophyte and disc bulge complex more prominent in the C6-C7.There was no untoward events overnight. Objective - Vital Signs/Intake and Output Vital Signs (last 24 hours): Temp Pulse Resp BP Pulse Ox 97.7 F 72 20 115/67 98 04/26/17 08:10 04/26/17 08:10 04/26/17 08:10 04/26/17 08:10 04/26/17 12:39 Intake and Output: 04/26/17 04/26/17 06:59 18:59 Intake Total 470 Balance 470 - Medications Medications: Current Medications Acetaminophen (Tylenol 325mg Tab) 650 mg PO Q6 PRN PRN Reason: pain, headache, fever Last Admin: 04/26/17 02:47 Dose: 650 mg Aspirin (Aspirin Chewable) 81 mg PO DAILY [facility] Last Admin: 04/26/17 10:04 Dose: 81 mg Famotidine (Pepcid) 20 mg PO BID [facility] Last Admin: 04/26/17 10:04 Dose: 20 mg Heparin Sodium (Porcine) (Heparin) 5,000 units SC Q8 [facility] Last Admin: 04/26/17 14:01 Dose: 5,000 units Hydrochlorothiazide (Microzide) 12.5 mg PO DAILY [facility] Last Admin: 04/26/17 10:04 Dose: 12.5 mg Magnesium Sulfate/Dextrose (Magnesium Sulfate 1 Gm/100 Ml D5w) 1 gm in 100 mls @ 300 mls/hr IVPB Q30M [facility] Stop: 04/26/17 17:19 Ibuprofen (Motrin Tab) 600 mg PO Q6H PRN PRN Reason: Pain, moderate (4-7) Levothyroxine Sodium (Synthroid) 125 mcg PO DAILY@0630 [facility] Last Admin: 04/26/17 05:55 Dose: 125 mcg Losartan Potassium (Cozaar) 100 mg PO DAILY [facility] Last Admin: 04/26/17 10:04 Dose: 100 mg Oxycodone HCl (Oxycodone Immediate Release Tab) 5 mg PO Q6 PRN PRN Reason: Pain, severe (8-10) Rosuvastatin Calcium (Crestor) 5 mg PO HS [facility] Last Admin: 04/25/17 22:14 Dose: 5 mg - Labs Labs: 04/26/17 10:37 04/26/17 10:37 - Constitutional Appears: No Acute Distress - Head Exam Head Exam: NORMAL INSPECTION - Neurological Exam Neurological Exam: Alert, Awake Neuro motor strength exam: Left Upper Extremity: 5, Right Upper Extremity: 5, Left Lower Extremity: 5, Right Lower Extremity: 5 Additional comments: She is able to answer questions appropriately and follows simple commands. Assessment and Plan (1) Headache Assessment & Plan: Case discussed with Dr. Gray, continue all current medical regimen.Recommend Magnesium 2 gm. IVPB for one dose and Decadron 10 mg IV for one dose. Status: Acute (2) Cervical radiculopathy Assessment & Plan: Case discvussed with Dr. Gray, recommend evaluation of the neurosurgery for the cervical spine. Status: Acute
[2017-04-26] MEDS ORDERED: oxyCODONE 5 mg Immediate Release Tab PO PRN (17:00)
[2017-04-26] MEDS: Magnesium Sulfate 1 gm in D5W 1 GM/100 ML BAG IVPB SCH ×2 (18:02→18:06)
--- NOTE | 2017-04-26 23:58 | CARD ---
APPROVED REPORT EKG Measurement Heart [id number] <Conclusion> Ventricular-paced rhythm Abnormal ECG
--- NOTE | 2017-04-26 23:58 | CARD ---
APPROVED REPORT EKG Measurement Heart [id number] <Conclusion> Atrial-sensed ventricular-paced rhythm Abnormal ECG
--- NOTE | 2017-04-27 04:56 | CON ---
DATE: CARDIOLOGY CONSULT REQUESTED BY: Hospitalist group. LOCATION: Presently admitted to [address] [place] [address] room 664 A. HISTORY OF PRESENT ILLNESS: Requested to see this 81-year-old female, originally from [facility], admitted last night with some atypical chest pain. I met this lady several weeks back when she was admitted with some kind of pain in the right shoulder area, left side of the chest, appeared to be arthritic or due to muscle pain, then she had a respiratory infection earlier and she was coughing a lot and that was in my opinion the situation. Subsequently, she was discharged home safely and for the last several days, she had been very anxious. She had been checking the blood pressure in the pharmacy at different places, it was elevated and she came to the clinic here at [facility] and she was advised admission and subsequently she came to the emergency room. It is important to mention that she is under stress all the time, lot of anxiety, actually she was asking me that problem is that she is very nervous all the time and she needs something to relax her. PAST MEDICAL HISTORY: However, includes hypertension for several years as well as a permanent pacemaker insertion years back, A-V sequential and the generator was changed several years ago. MEDICATIONS: She takes multiple medications including losartan, which she takes 100 mg a day as well as medication for her thyroid. She has history of hypothyroidism, on replacement therapy. 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 ALLERGIES: SHE CLAIMS TO BE ALLERGIC TO MORPHINE. REVIEW OF SYSTEMS: From the cardiopulmonary view point, she had this pain and now she claims it has localized somewhere in the left upper pectoral area towards the left shoulder. Several weeks ago it was on the right side and going to the right shoulder. When you touch it, she would jump and when I just touched her this area, here in the left pectoral area, she also jumped with pain, but there is no redness, swelling, or deformity. Review of systems other than the presenting complaints otherwise negative. PHYSICAL EXAMINATION: GENERAL: Reveals an elderly female, very physical shape for her age, well preserved, in no distress. She recognized me immediately from when I saw her last time when she came in sometime in the beginning of last month March 2017 and again, she mentioned that her problem is that she is very anxious and she needs something to relax and she gets arthritic pains all over and because of that her blood pressure "goes through the roof." She appeared in no distress whatsoever. VITAL SIGNS: Totally stable at this point in time. Her blood pressure is about /70 or so. Temperature is normal. Respiratory rate, O2 saturation also within physiological parameters. SKIN: Warm and dry. There is no edema. There is some scar in the left ankle area, where she had some sort of ulceration years back and other than that no edema. HEAD, EAR, NOSE AND THROAT: Basically unremarkable for her age. NECK: Supple. No bruits. CHEST: Shows symmetrical expansion. LUNGS: Clear to auscultation. MUSCULOSKELETAL: In the left pectoral area again when you touch it there, she was complaining of localized tenderness, no deformity. There is also tenderness when you touch the right shoulder, all due to arthritis. HEART: No thrills. Heart sounds normal in intensity and regular. There is a pacemaker pulse generator in the right infraclavicular area. Heart sounds otherwise regular with a slight systolic murmur, nothing significant. ABDOMEN: Mildly obese. No localized tenderness. COMPLEMENTARY DATA: All appears stable. The three troponins done in the admission, all negative for acute myocardial infarction. Chest x-ray, no acute cardiopulmonary pathology. There is a pacemaker and borderline cardiomegaly, but no good deep inspiration x-ray. The rest of the lab data nothing spectacular. ASSESSMENT: 1. Atypical chest pain, appears noncardiac in origin. 2. Hypertension. Hypertension is well controlled at this point in time. 3. Anxiety. 4. Status post permanent pacemaker with atrioventricular sequential generator system. SUGGESTION: Presently appears very stable, this lady mainly at this point in time, presently one should look into and try to give some her some anxiolytics and will see if this helps. I do not see any issue. Cardiac rosas, appears quite well, stable at this point in time and multiple investigations that we did last time few weeks ago, basically no need to repeat at this point. If she continues to have this symptomatology after she comes to the clinic, etc., then perhaps as an outpatient all the investigations will be entertained. Ishan Boogie MD
[2017-04-27] MEDS: Levothyroxine 125 MCG TAB PO SCH (05:33)
[2017-04-27 06:53] LABS: BASO % 0.2 % (0.0-2.0); EOS % 0.1 % (0.0-4.0); HEMOGLOBIN 11.9 g/dL (11.0-16.0); LYMPH # 1.2 K/uL (1.0-4.3); LYMPH % 16.2 % (20.0-40.0); MEAN CELL VOLUME 92.9 fL (81.0-99.0); MEAN CORPUSCULAR HEMOGLOBIN 31.6 pg (27.0-31.0); MEAN PLATELET VOLUME 9.6 fL (7.2-11.7); MONO # 0.1 K/uL (0.0-0.8); NEUT # 6.2 K/uL (1.8-7.0); NEUT % 82.5 % (50.0-75.0); RBC 3.76 Mil/uL (3.80-5.20); WHITE BLOOD COUNT 7.5 K/uL (4.8-10.8)
[2017-04-27 07:59] LABS: ALB/GLOB RATIO 1.1 (1.0-2.1); ALBUMIN 3.9 g/dL (3.5-5.0); ALT/SGPT 26 U/L (9-52); AST/SGOT 25 U/L (14-36); BLOOD UREA NITROGEN 26 mg/dL (7-17); CALCIUM 8.2 mg/dl (8.6-10.4); GFR AFRICAN-AMERICAN > 60; GFR NON-AFRICAN AMERICAN > 60; MAGNESIUM 1.9 mg/dL (1.6-2.3)
--- NOTE | 2017-04-27 17:07 | CP.PCM.PN ---
Subjective - Date & Time of Evaluation Date of Evaluation: 04/27/17 Time of Evaluation: 07:00 - Subjective Subjective: PGY1- Medicine Note- Dr. Soliman's Service Patient seen and examined at bedside and is in no acute distress. Patient says she feels much better today. Patient has no chest pain. Patient still has some right arm weakness. Patient feels slightly constipated. Otherwise patient has no complaints. Patient denies shortness of breath, abdominal pain, nausea, vomiting, or diarrhea. Objective - Vital Signs/Intake and Output Vital Signs (last 24 hours): Temp Pulse Resp BP Pulse Ox 97.4 F L 75 20 124/64 95 04/27/17 15:22 04/27/17 15:22 04/27/17 15:22 04/27/17 15:22 04/27/17 15:22 Intake and Output: 04/27/17 04/27/17 06:59 18:59 Intake Total 100 480 Balance 100 480 - Medications Medications: Current Medications Acetaminophen (Tylenol 325mg Tab) 650 mg PO Q6 PRN PRN Reason: pain, headache, fever Last Admin: 04/26/17 02:47 Dose: 650 mg Aspirin (Aspirin Chewable) 81 mg PO DAILY [facility] Last Admin: 04/27/17 09:21 Dose: 81 mg Docusate Sodium (Colace) 100 mg PO TID [facility] Last Admin: 04/27/17 14:10 Dose: 100 mg Famotidine (Pepcid) 20 mg PO DAILY [facility] Last Admin: 04/27/17 09:22 Dose: 20 mg Heparin Sodium (Porcine) (Heparin) 5,000 units SC Q8 [facility] Last Admin: 04/27/17 14:05 Dose: 5,000 units Hydrochlorothiazide (Microzide) 12.5 mg PO DAILY [facility] Last Admin: 04/27/17 09:22 Dose: 12.5 mg Ibuprofen (Motrin Tab) 600 mg PO Q6H PRN PRN Reason: Pain, moderate (4-7) Last Admin: 04/26/17 16:58 Dose: 600 mg Levothyroxine Sodium (Synthroid) 125 mcg PO DAILY@0630 [facility] Last Admin: 04/27/17 05:33 Dose: 125 mcg Losartan Potassium (Cozaar) 100 mg PO DAILY [facility] Last Admin: 04/27/17 09:21 Dose: 100 mg Oxycodone HCl (Oxycodone Immediate Release Tab) 5 mg PO Q6H PRN PRN Reason: Pain, severe (8-10) Rosuvastatin Calcium (Crestor) 5 mg PO HS [facility] Last Admin: 04/26/17 22:13 Dose: 5 mg - Labs Labs: 04/27/17 06:45 04/27/17 06:45 - Additional Findings Additional findings: - Constitutional Appears: Non-toxic, No Acute Distress - Head Exam Head Exam: ATRAUMATIC, NORMAL INSPECTION, NORMOCEPHALIC - Eye Exam Eye Exam: EOMI, Normal appearance - ENT Exam ENT Exam: Mucous Membranes Moist - Respiratory Exam Respiratory Exam: Clear to Ausculation Bilateral, NORMAL BREATHING PATTERN. absent: Rales, Rhonchi, Wheezes, Respiratory Distress, Stridor - Cardiovascular Exam Cardiovascular Exam: REGULAR RHYTHM, RRR, +S1, +S2 - GI/Abdominal Exam GI & Abdominal Exam: Soft, Normal Bowel Sounds. absent: Tenderness - Extremities Exam Extremities Exam: Full ROM, Normal Inspection. absent: Pedal Edema - Neurological Exam Neurological Exam: Alert, Awake, Oriented x3 Neuro motor strength exam: Left Upper Extremity: 5, Right Upper Extremity: 4, Left Lower Extremity: 5, Right Lower Extremity: 5 - Psychiatric Exam Psychiatric exam: Normal Affect, Normal Mood - Skin Skin Exam: Intact, Normal Color, Warm Assessment and Plan - Assessment and Plan (Free Text) Assessment: Chest Pain, resolved r/o ACS tele obs JANNA negative x3 EKG: ventricular-paced rhythm continue ASA 81mg daily Cardiology consulted, Dr. Boogie, help appreciated * stable from cardiology standpoint Left Arm weakness/ numbness CT head without contrast (04/25/17): no acute intracranial hemorrhage, mass effect , or midline shift Cervical spine CT without contrast (04/25/17): small posterior osteophyte and disc bulge at C6-C7 Thoracic and Cervical Spine xrays 04/21/17: normal radiographs Oxycodone 5mg po q6h prn for pain Dexamethasone 10mg ivp once Neuro consulted, Dr. Gray, help appreciated * MRI recommended, cannot be completed due to patient's pacemaker * Neurosurger, Dr. Pool, consulted- help appreciated Hx HTN uncontrolled continue HCTZ 12.5 mg daily continue Losartan 100mg daily monitor Hyperlipidemia Simvastatin 20mg NF Crestor 5mg po HS Hypothyroidism Continue Levothyroxine 125mcg daily Constipation Colace 100mg po TID Prophylaxis Pepcid 20mg po BID SCDs, Heparin 5000 u sc q8h heart healthy diet
[2017-04-28] MEDS: Levothyroxine 125 MCG TAB PO SCH (05:29)
[2017-04-28 06:43] LABS: BASO % 0.3 % (0.0-2.0); EOS % 0.3 % (0.0-4.0); HEMOGLOBIN 11.3 g/dL (11.0-16.0); LYMPH # 2.8 K/uL (1.0-4.3); LYMPH % 20.7 % (20.0-40.0); MEAN CELL VOLUME 93.2 fL (81.0-99.0); MEAN CORPUSCULAR HEMOGLOBIN 30.9 pg (27.0-31.0); MEAN CORPUSCULAR HGB CONC 33.1 g/dL (33.0-37.0); MONO # 0.8 K/uL (0.0-0.8); MONO % 5.6 % (0.0-10.0); NEUT # 9.7 K/uL (1.8-7.0); NEUT % 73.1 % (50.0-75.0); RBC 3.66 Mil/uL (3.80-5.20); RED CELL DISTRIBUTION WIDTH 14.2 % (11.5-14.5); WHITE BLOOD COUNT 13.3 K/uL (4.8-10.8)
--- NOTE | 2017-04-28 07:15 | CON ---
DATE: 04/27/2017 HISTORY OF PRESENT ILLNESS: This is an 81-year-old woman, who was admitted apparently for chest , but concomitantly had some pain radiating down her right arm. She describes the pain as radiating from the right side of her neck through her shoulder down to the lateral forearm. She has some dysesthesias in the same distribution. Apparently, this has only been going on for a very brief time. She denies any bowel, bladder or balance dysfunction. Denies any left arm stiffness. PAST MEDICAL HISTORY: Quite extensive, mostly we are referencing this problem. She has a pacemaker. Rest of her medications, history, allergy, social history reviewed in the EMR. PHYSICAL EXAMINATION: She has a little bit of right-sided triceps weakness. She has good gross sensation throughout. She has a little bit of pain upon lifting the right arm and pain upon palpation in the shoulder, which certainly may go along with a concomitant intrinsic shoulder pathology. Fairly good range in relation of the cervical spine. Flexors are normal limits. Amrita negative bilaterally. Gait is not tested. A CT of the spine was rather benign study with some mild degenerative changes and a bulging disk at 6-7. There did not seem to be any bony stenosis of the right C6-7 foramen. IMPRESSION: Obviously, the ideal way to evaluate this is with an MRI, but this precluded because of her pacemaker. The next best option will be a myelogram. However, obviously this is invasive and on top of that, the patient has been on both aspirin and heparin. So it cannot be performed any time in the next few days. In light of that, I would suggest that she get treated with anti-inflammatories and physical therapy. If this fails to alleviate her pain over the next several weeks, I believe a cervical myelogram would be indicated. Buddy Pool MD
[2017-04-28 07:16] LABS: ALB/GLOB RATIO 1.1 (1.0-2.1); ALBUMIN 3.6 g/dL (3.5-5.0); ALT/SGPT 19 U/L (9-52); AST/SGOT 20 U/L (14-36); BLOOD UREA NITROGEN 28 mg/dL (7-17); CALCIUM 8.1 mg/dl (8.6-10.4); GFR AFRICAN-AMERICAN > 60; GFR NON-AFRICAN AMERICAN > 60; MAGNESIUM 1.8 mg/dL (1.6-2.3)
[2017-04-28 08:26] VITALS: TEMP 98.1; O2SAT 100
[2017-04-28 09:47] VITALS: BP 145/77; PULSE 69
[2017-04-28] MEDS ORDERED: Pneumococcal 23-Valent Vaccine IM ONE (10:00)
--- NOTE | 2017-04-28 11:03 | CP.PCM.DIS ---
Provider - Provider Date of Admission: 04/27/17 17:36 Attending physician: Anibal Soliman MD Primary care physician: [facility] Consults: Cardio: Dr. Boogie Neuro: Dr. Gray Neurosurg: Dr. Pool Time Spent in preparation of Discharge (in minutes): 45 Diagnosis - Discharge Diagnosis (1) Chest pain Status: Resolved (2) Cervical radiculopathy Status: Acute Priority: High (3) Constipation Status: Resolved (4) HLD (hyperlipidemia) Status: Chronic (5) HTN (hypertension) Status: Acute (6) Hypothyroidism Status: Chronic Hospital Course - Lab Results Lab Results: Most Recent Lab Values WBC 13.3 K/uL (4.8-10.8) H D 04/28/17 06:33 RBC 3.66 Mil/uL (3.80-5.20) L 04/28/17 06:33 Hgb 11.3 g/dL (11.0-16.0) 04/28/17 06:33 Hct 34.2 % (34.0-47.0) 04/28/17 06:33 MCV 93.2 fL (81.0-99.0) 04/28/17 06:33 MCH 30.9 pg (27.0-31.0) 04/28/17 06:33 MCHC 33.1 g/dL (33.0-37.0) 04/28/17 06:33 RDW 14.2 % (11.5-14.5) 04/28/17 06:33 Plt Count 217 K/uL (130-400) 04/28/17 06:33 MPV 9.0 fL (7.2-11.7) 04/28/17 06:33 Neut % (Auto) 73.1 % (50.0-75.0) 04/28/17 06:33 Lymph % (Auto) 20.7 % (20.0-40.0) 04/28/17 06:33 Jenkins % (Auto) 5.6 % (0.0-10.0) 04/28/17 06:33 Eos % (Auto) 0.3 % (0.0-4.0) 04/28/17 06:33 Baso % (Auto) 0.3 % (0.0-2.0) 04/28/17 06:33 Neut # 9.7 K/uL (1.8-7.0) H 04/28/17 06:33 Lymph # 2.8 K/uL (1.0-4.3) 04/28/17 06:33 Jenkins # 0.8 K/uL (0.0-0.8) 04/28/17 06:33 Eos # 0.0 K/uL (0.0-0.7) 04/28/17 06:33 Baso # 0.0 K/uL (0.0-0.2) 04/28/17 06:33 Sodium 132 mmol/L (132-148) 04/28/17 06:33 Potassium 4.1 mmol/L (3.6-5.2) 04/28/17 06:33 Chloride 99 mmol/L (98-107) 04/28/17 06:33 Carbon Dioxide 28 mmol/L (22-30) 04/28/17 06:33 Anion Gap 9 (10-20) L 04/28/17 06:33 BUN 28 mg/dL (7-17) H 04/28/17 06:33 Creatinine 0.9 mg/dL (0.7-1.2) 04/28/17 06:33 Est GFR ( Amer) > 60 04/28/17 06:33 Est GFR (Non-Af Amer) > 60 04/28/17 06:33 Random Glucose 118 mg/dL (65-105) H 04/28/17 06:33 Calcium 8.1 mg/dl (8.6-10.4) L 04/28/17 06:33 Phosphorus 3.4 mg/dL (2.5-4.5) 04/28/17 06:33 Magnesium 1.8 mg/dL (1.6-2.3) 04/28/17 06:33 Total Bilirubin 0.3 mg/dL (0.2-1.3) 04/28/17 06:33 AST 20 U/L (14-36) 04/28/17 06:33 ALT 19 U/L (9-52) 04/28/17 06:33 Alkaline Phosphatase 56 U/L (38-126) 04/28/17 06:33 Total Creatine Kinase 36 U/L (30-135) 04/25/17 22:57 CK-MB (Mass) 0.43 ng/mL (0.0-3.38) 04/25/17 22:57 Troponin I < 0.0120 ng/mL (0.00-0.120) 04/25/17 22:57 NT-Pro-B Natriuret Pep 488 pg/mL (0-900) 04/25/17 10:41 Total Protein 7.1 g/dL (6.3-8.3) 04/28/17 06:33 Albumin 3.6 g/dL (3.5-5.0) 04/28/17 06:33 Globulin 3.4 gm/dL (2.2-3.9) 04/28/17 06:33 Albumin/Globulin Ratio 1.1 (1.0-2.1) 04/28/17 06:33 - Hospital Course Hospital Course: "CC: chest pain Patient is a 81 yo female with PMH HTN, hyperlipidemia, diet- controlled DMII, hypothyroidism, arthritis, anxiety presenting with complaint of chest pain. She states this pain began while she was lying down last night resting. The pain is described as a pressure like sensation in the left sternal border with radiation to her back. She was recently hospitalized on 03/2017 for similar chest pain. During that admission, JANNA was negative x3 and patient was found to have ESBL positive urine and so was treated with 5 days of Primaxin. According to the patient, she had seen her PMD for follow-up 4 days ago and was told she had high blood pressure with systolic in the 180s. Ever since then, she has been experiencing a headache along with very labile blood pressures ranging from systolic of 150s to 180s. She states that normally her blood pressure is around 130/70. She denies diaphoresis, shortness of breath, fever, chills, nausea, vomiting. The patient states that currently her chest is improved, with severity of pain +3/10 in comparison to +8/10 the night prior. Patient also complains of left arm weakness and numbness which began approximately 1 month ago. 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 She went to [facility] for this and had cervical and thoracic spine x-rays done on April 21 which showed no fractures or soft tissue swellings. Of note, she had her pacemaker checked just 2 months ago in [facility]." Patient was admitted for her chest pain to rule out MN, and ACS. Her EKG showed ventricular-paced rhythm, and she had JANNA negative x3. She was continued on her aspirin 81 mg daily, and Motrin 600 mg as needed. Cardiology (Dr. Boogie) was consulted and cardiac origin of chest pain was ruled out. Patient also has a pacemaker which was checked 2 months ago in [facility]. Her chest pain has resolved. Patient also complained of neck pain, and right arm weakness with numbness. Her thoracic and cervical spine Xrays on 04/21/17 showed normal radiographs. Neurology (Dr. Gray) was consulted, and CT of the head did not show any infarcts, but CT of the neck showed disc bulging most prominent at C6-C7. MRI was recommended, but could not be completed due to patient having a pacemaker. She was given Tylenol 650 mg prn, and later Oxycodone 5 mg prn for her neck pain , which improved with medication. Neurosurgery was consulted, Dr. Pool recommends anti-inflammatories and physical therapy. If pain persists patient may benefit from cervical myelogram in the future. Patient's history of HTN was treated with Losartan 100 mg and HCTZ 12.5 mg daily. Patient's was treated for her history of HLD with Crestor 5 mg po HS. Patient's hypothyroidism was managed with levothyroxine 125 mcg daily. This is a summary of the patient's hospital course, please see chart for full details. Patient stable for discharge as per Dr. Soliman. Patient to return to ED if symptoms return. Discharge Exam - Additional Findings Additional findings: - Constitutional Appears: Non-toxic, No Acute Distress - Head Exam Head Exam: ATRAUMATIC, NORMAL INSPECTION, NORMOCEPHALIC - Eye Exam Eye Exam: EOMI, Normal appearance - ENT Exam ENT Exam: Mucous Membranes Moist - Respiratory Exam Respiratory Exam: Clear to Ausculation Bilateral, NORMAL BREATHING PATTERN. absent: Rales, Rhonchi, Wheezes, Respiratory Distress, Stridor - Cardiovascular Exam Cardiovascular Exam: REGULAR RHYTHM, RRR, +S1, +S2 - GI/Abdominal Exam GI & Abdominal Exam: Soft, Normal Bowel Sounds. absent: Tenderness - Extremities Exam Extremities Exam: Full ROM, Normal Inspection. absent: Pedal Edema - Neurological Exam Neurological Exam: Alert, Awake, Oriented x3 Neuro motor strength exam: Left Upper Extremity: 5, Right Upper Extremity: 4, Left Lower Extremity: 5, Right Lower Extremity: 5 - Psychiatric Exam Psychiatric exam: Normal Affect, Normal Mood - Skin Skin Exam: Intact, Normal Color, Warm Discharge Plan - Follow Up Plan Condition: FAIR Disposition: HOME/ ROUTINE Instructions: Chest Pain (DC), Heart Healthy Diet (DC), Low Sodium Diet (DC) Additional Instructions: Patient stable for discharge as per Dr. Soliman. Patient to receive physical therapy as an outpatient. If pain continues, she should follow up with Dr. Pool (neurosurgery) for a cervical myelogram. Patient to continue home medications. Patient to follow up with PMD, [facility], within 2 weeks. Patient to please return to ED if symptoms worsen. Patient explained instructions who understands and agrees. Referrals: [facility] [Provider Group] Buddy Pool MD [Staff Provider] -
--- NOTE | 2017-04-28 23:19 | CARD ---
APPROVED REPORT EKG Measurement Heart [id number] <Conclusion> Atrial-sensed ventricular-paced rhythm Abnormal ECG
--- NOTE | 2017-04-28 23:21 | CARD ---
APPROVED REPORT EKG Measurement Heart [id number] [place] [id number] <Conclusion> Atrial-sensed ventricular-paced rhythm Abnormal ECG
== END 2017-04-28 13:41 | disposition home or self-care (01) | DRG 143 ==
LOC: C.ER 10:02 → C.9E 11:31 → C.6T 12:30 → OBSVTOIN 04-27 17:36
PROVIDERS: ADMIT Internal Medicine; ATTEND Internal Medicine
DX: R07.89 Other chest pain (principal); E03.9 Hypothyroidism, unspecified; E78.5 Hyperlipidemia, unspecified; F41.9 Anxiety disorder, unspecified; I10 Essential (primary) hypertension; K59.00 Constipation, unspecified; M54.12 Radiculopathy, cervical region; Z95.0 Presence of cardiac pacemaker